=== PATIENT | male | born 1925 | race Caucasian/White ===

== ENCOUNTER 2016-08-03 17:18 | Inpatient (IN) | payer MEDICARE, OTHER ==
[~2016-08-03] VITALS: Ht 188 cm; Wt 84.7 kg
[~2016-08-03 17:18] MED LIST: ARIC10TA PO; DIGO0.12 PO; DOCU1CAP39 PO; FERR324T4 OR; MELA10TA3 PO; METO50TA PO; RISP0.5T20 OR; TRAM50TA PO; VITA500C PO; WARF6 PO
[2016-08-03 17:21] VITALS: BP 117/57; PULSE 83; RESP 16; TEMP 98.7; O2SAT 96
[2016-08-03] MEDS ORDERED: SODIUM CHLOR 0.9% 1000 ML INJ 1,000 ML IV SCH (17:32)
[2016-08-03 17:34] VITALS: O2SAT 98
[2016-08-03] MEDS ORDERED: SODIUM CHLORIDE 0.9% FLUSH 5 ML FLUSH IVF PRN (17:45)
--- NOTE | 2016-08-03 17:55 | PD ---
HPI Chief Complaint: GI Complaint Time Seen by Provider: 17:21 Travel History International Travel<30 days: No Contact w/Intl Traveler<30days: No Traveled to known affect area: No History of Present Illness HPI Send 89 year-old man who presents to the emergency department via EMS from [facility]. Therefore multiple, innumerable, episodes of emesis throughout the night. Emesis is gotten darker in color. Given IM medications without relief. Patient is fairly lucid but has multiple medical problems including rheumatoid arthritis which is severe, A. fib, and heart failure. He is on prednisone 10 mg daily for the arthritis, but is not on any only on a baby aspirin daily. No other blood thinners. He does take Zantac. He otherwise has been feeling generally well. History Past Medical History Narrative Medical Rheumatoid arthritis, on prednisone, norco Hypertension Hyperlipidemia Dementia CAD CHF Known right bundle branch block Social History Alcohol Use: No Tobacco Use: No Allergies-Medications (Allergen,Severity, Reaction): Coded Allergies: No Known Allergies (Unverified , 08/03/16) Reported Meds & Prescriptions Reported Meds & Active Scripts Active Review of Systems Except as stated in HPI: all other systems reviewed are Neg Physical Exam Narrative GENERAL: Well-appearing 89 year-old man, no acute distress. SKIN: Warm and dry. EYES: Keeps eyes shut, reportedly blind. ENT: No nasal bleeding or discharge. Mucous membranes pink and moist. NECK: Trachea midline. No JVD. CARDIOVASCULAR: Regular rate and rhythm. No murmur appreciated. RESPIRATORY: No accessory muscle use. Clear to auscultation. Breath sounds equal bilaterally. GASTROINTESTINAL: Abdomen flat and soft. MUSCULOSKELETAL: Marked arthritic contractures of both upper extremities. No edema. NEUROLOGICAL: His eyes closed but seems reasonably alert. Symmetrical are is a little bit of prompting answer questions. Seems very lucid. Has marked contractures, but no obvious focal deficits. PSYCHIATRIC: Appropriate mood and affect; insight and judgment normal. Data Data Last Documented VS Vital Signs Date Time Temp Pulse Resp B/P Pulse Ox O2 Delivery O2 Flow Rate FiO2 08/03/16 17:34 98 Room Air 08/03/16 17:21 98.7 83 16 117/57 Orders Complete Blood Count With Diff (08/03/16 17:32) Comprehensive Metabolic Panel (08/03/16 17:32) Lipase (08/03/16 17:32) Prothrombin Time / Inr (Pt) (08/03/16 17:32) Act Partial Throm Time (Ptt) (08/03/16 17:32) Type And Screen (08/03/16 17:32) Ecg Monitoring (08/03/16 17:32) Iv Access Insert/Monitor (08/03/16 17:32) Oximetry (08/03/16 17:32) Sodium Chlor 0.9% 1000 Ml Inj (Ns 1000 M (08/03/16 17:32) Sodium Chloride 0.9% Flush (Ns Flush) (08/03/16 17:45) Urinalysis - C+S If Indicated (08/03/16 18:00) Cath For Specimen (08/03/16 18:00) Ct Abd/Pel W Iv Contrast(Rout) (08/03/16 ) Labs Laboratory Tests Test 08/03/16 17:55 White Blood Count 20.8 TH/MM3 Red Blood Count 4.40 MIL/MM3 Hemoglobin 11.0 GM/DL Hematocrit 35.3 % Mean Corpuscular Volume 80.4 FL Mean Corpuscular Hemoglobin 25.0 PG Mean Corpuscular Hemoglobin 31.1 % Concent Red Cell Distribution Width 19.2 % Platelet Count 381 TH/MM3 Mean Platelet Volume 8.0 FL Neutrophils (%) (Auto) 90.4 % Lymphocytes (%) (Auto) 2.8 % Monocytes (%) (Auto) 6.2 % Eosinophils (%) (Auto) 0.0 % Basophils (%) (Auto) 0.6 % Neutrophils # (Auto) 18.8 TH/MM3 Lymphocytes # (Auto) 0.6 TH/MM3 Monocytes # (Auto) 1.3 TH/MM3 Eosinophils # (Auto) 0.0 TH/MM3 Basophils # (Auto) 0.1 TH/MM3 CBC Comment DIFF FINAL Differential Comment Prothrombin Time 10.8 SEC Prothromb Time International 1.0 RATIO Ratio Activated Partial 23.8 SEC Thromboplast Time Sodium Level 142 MEQ/L Potassium Level 4.2 MEQ/L Chloride Level 104 MEQ/L Carbon Dioxide Level 29.1 MEQ/L Anion Gap 9 MEQ/L Blood Urea Nitrogen 31 MG/DL Creatinine 1.12 MG/DL Estimat Glomerular Filtration 62 ML/MIN Rate Random Glucose 129 MG/DL Calcium Level 8.7 MG/DL Total Bilirubin 0.6 MG/DL Aspartate Amino Transf 37 U/L (AST/SGOT) Alanine Aminotransferase 20 U/L (ALT/SGPT) Alkaline Phosphatase 101 U/L Total Protein 7.3 GM/DL Albumin 3.0 GM/DL Lipase 77 U/L Blood Type O POSITIVE Antibody Screen NEGATIVE MDM Medical Decision Making Medical Screen Exam Complete: Yes Emergency Medical Condition: Yes Interpretation(s) LABS: CBC remarkable for leukocytosis, CMP is unremarkable Lipase is normal Coags unremarkable Differential Diagnosis GI bleed, ileus, obstruction, other Narrative Course Medical decision making INITIAL 89 year-old man presents emergent from with copious vomiting throughout the day today, concern for bleeding, we'll check labs, IV fluids, reassess. 7 PM: Patient with marked leukocytosis. Vomiting. Etiology unclear. No abdominal pain a benign abdomen, we'll get CT scan given age and risk comorbidities. Patient was signed out to the oncoming provider. Franky Davis MD Aug 03, 2016 17:55
[2016-08-03 18:03] LABS: AUTOMATED NEUTROPHIL # 18.8 TH/MM3 (1.8-7.7); BASOPHIL # 0.1 TH/MM3 (0-0.2); BASOPHIL % 0.6 % (0.0-2.0); HEMATOCRIT 35.3 % (39.0-51.0); HEMO FLAGS DIFF FINAL; LYMPH % 2.8 % (9.0-44.0); LYMPHOCYTE # 0.6 TH/MM3 (1.0-4.8); MEAN CELL VOLUME 80.4 FL (80.0-100.0); MEAN CORPUSCULAR HGB CONC 31.1 % (32.0-36.0); MONO % 6.2 % (0.0-8.0); NEUT % 90.4 % (16.0-70.0); PLATELET COUNT 381 TH/MM3 (150-450); RED CELL DISTRIBUTION WIDTH 19.2 % (11.6-17.2); WHITE BLOOD COUNT 20.8 TH/MM3 (4.0-11.0)
[2016-08-03 18:17] LABS: APTT (PATIENT) 23.8 SEC (24.3-30.1); PROTHROMBIN TIME - PATIENT 10.8 SEC (9.8-11.6)
[2016-08-03 18:34] LABS: ANION GAP 9 MEQ/L (5-15)
[2016-08-03 18:37] LABS: ALKALINE PHOSPHATASE 101 U/L (45-117); ALT (GPT) 20 U/L (12-78); AST (GOT) 37 U/L (15-37); BICARBONATE 29.1 MEQ/L (21.0-32.0); BLOOD UREA NITROGEN 31 MG/DL (7-18); CHLORIDE 104 MEQ/L (98-107); GLOMERULAR FILTRATION RATE 62 ML/MIN (>89); SODIUM (NA) 142 MEQ/L (136-145); TOTAL BILIRUBIN ADULT 0.6 MG/DL (0.2-1.0)
[2016-08-03 18:38] LABS: POTASSIUM 4.2 MEQ/L (3.5-5.1)
[2016-08-03 19:08] VITALS: BP 118/65; PULSE 103; RESP 18; O2SAT 97
--- NOTE | 2016-08-03 20:08 | RADRPT ---
EXAM DATE/TIME: 08/03/2016 19:32 [facility] COMPARISON: No previous studies available for comparison. INDICATIONS : Short of breath. MEDICAL HISTORY : Hypertension. Congestive heart failure. Arthritis. SURGICAL HISTORY : Inguinal hernia repair. ENCOUNTER: Initial ACUITY: 1 day PAIN SCORE: 0/10 LOCATION: Bilateral chest FINDINGS: A single view of the chest demonstrates bibasilar interstitial lung disease greater on the left. Ther e is no evidence of consolidating infiltrate. Heart is mildly enlarged. There is no evidence of hilar or mediastinal fullness. CONCLUSION: Interstitial lung disease predominantly within the bases. Interstitial pneumonitis versus early conge stion should be considered. Dane Schumacher MD on August 03, 2016 at 20:05 Board Certified Radiologist. This report was verified electronically.
[2016-08-03] MEDS ORDERED: IOHEXOL 350 MG/ML 10 ML VIAL (for RAD DIAG) IV ONE (20:15)
[2016-08-03] MEDS ORDERED: MORPHINE SULFATE 4 MG/ML INJ IV PUSH ONE (20:15)
[2016-08-03 20:34] VITALS: BP 135/76; PULSE 98; RESP 18; O2SAT 96
--- NOTE | 2016-08-03 20:50 | RADRPT ---
EXAM DATE/TIME: 08/03/2016 19:36 [facility] COMPARISON: ABDOMEN FLAT & UPRIGHT, August 03, 2016, 18:14. INDICATIONS : Nausea and vomiting today, coffe ground emesis. IV CONTRAST: 76 cc Omnipaque 350 (iohexol) IV ORAL CONTRAST: No oral contrast ingested. RADIATION DOSE: 10.76 CTDIvol (mGy) MEDICAL HISTORY : Arthritis. Hypertension. Cardiovascular diseaseDementia SURGICAL HISTORY : Inguinal hernia repair. ENCOUNTER: Initial ACUITY: 1 day PAIN SCALE: 0/10 LOCATION: Abdomen TECHNIQUE: Volumetric scanning of the abdomen and pelvis was performed. Using automated exposure control and ad justment of the mA and/or kV according to patient size, radiation dose was kept as low as reasonably achievable to obtain optimal diagnostic quality images. FINDINGS: LOWER LUNGS: Significant airspace disease is identified left lower lobe. LIVER: Homogeneous density without lesion. There is no dilation of the biliary tree. No calcified gallston es. SPLEEN: Normal size without lesion. PANCREAS: Within normal limits. KIDNEYS: A 4.2 cm cyst is identified off the medial cortex of left kidney. 5 mm calculus is identified in the midpole the left kidney. A 12 mm alculus is identified in the right renal pelvis. Kidneys are otherwi se unremarkable there is no evidence of hydronephrosis. ADRENAL GLANDS: Within normal limits. VASCULAR: There is no aortic aneurysm. BOWEL/MESENTERY: Small bowel ileus with distention and air-fluid levels is identified to approximately the mid to dist al jejunum. There is an acute transition point with distal collapse of the small and large intestine. There is no evidence of discrete mass. Large fecal bolus consistent with impaction is identified in the rectum. ABDOMINAL WALL: There are no incarcerated hernias. RETROPERITONEUM: There is no lymphadenopathy. BLADDER: No wall thickening or mass. REPRODUCTIVE: Within normal limits. INGUINAL: There is no lymphadenopathy or hernia. MUSCULOSKELETAL: No acute findings. CONCLUSION: Proximal to mid small bowel ileus with acute transition characteristic of an obstructing adhesion. No evidence of discrete mass. Bilateral nephrolithiasis without evidence of hydronephrosis. Left renal cyst. Fecal impaction in rectum. Dane Schumacher MD on August 03, 2016 at 20:39 Board Certified Radiologist. This report was verified electronically.
--- NOTE | 2016-08-03 20:59 | PD ---
Physical Exam Narrative The patient was initially evaluated by the previous provider and sent out to me at shift. See his note for further details. Data Data Last Documented VS Vital Signs Date Time Temp Pulse Resp B/P Pulse Ox O2 Delivery O2 Flow Rate FiO2 08/03/16 20:34 98 18 135/76 96 Room Air 08/03/16 17:21 98.7 Orders Complete Blood Count With Diff (08/03/16 17:32) Comprehensive Metabolic Panel (08/03/16 17:32) Lipase (08/03/16 17:32) Prothrombin Time / Inr (Pt) (08/03/16 17:32) Act Partial Throm Time (Ptt) (08/03/16 17:32) Type And Screen (08/03/16 17:32) Ecg Monitoring (08/03/16 17:32) Iv Access Insert/Monitor (08/03/16 17:32) Oximetry (08/03/16 17:32) Sodium Chlor 0.9% 1000 Ml Inj (Ns 1000 M (08/03/16 17:32) Sodium Chloride 0.9% Flush (Ns Flush) (08/03/16 17:45) Urinalysis - C+S If Indicated (08/03/16 18:00) Cath For Specimen (08/03/16 18:00) Ct Abd/Pel W Iv Contrast(Rout) (08/03/16 ) Chest, Single Ap (08/03/16 ) Morphine Inj (Morphine Inj) (08/03/16 20:15) Iohexol 350 Inj (Omnipaque 350 Inj) (08/03/16 20:15) Insert Ng Tube (08/03/16 20:50) Ceftriaxone Inj (Rocephin Inj) (08/03/16 21:15) Fleets Enema (Adult) (Fleets Enema (Adul (08/03/16 21:15) Pantoprazole Inj (Protonix Inj) (08/03/16 21:15) Pantoprazole Inj (Protonix Inj) (08/03/16 21:15) Urine Culture (08/03/16 20:21) Sodium Chlor 0.9% 1000 Ml Inj (Ns 1000 M (08/03/16 21:30) Lactic Acid (08/03/16 21:19) Blood Culture (08/03/16 21:19) Admit Order (Ed Use Only) (08/03/16 21:54) Labs Laboratory Tests Test 08/03/16 08/03/16 08/03/16 17:55 20:21 21:30 White Blood Count 20.8 TH/MM3 Red Blood Count 4.40 MIL/MM3 Hemoglobin 11.0 GM/DL Hematocrit 35.3 % Mean Corpuscular Volume 80.4 FL Mean Corpuscular Hemoglobin 25.0 PG Mean Corpuscular Hemoglobin 31.1 % Concent Red Cell Distribution Width 19.2 % Platelet Count 381 TH/MM3 Mean Platelet Volume 8.0 FL Neutrophils (%) (Auto) 90.4 % Lymphocytes (%) (Auto) 2.8 % Monocytes (%) (Auto) 6.2 % Eosinophils (%) (Auto) 0.0 % Basophils (%) (Auto) 0.6 % Neutrophils # (Auto) 18.8 TH/MM3 Lymphocytes # (Auto) 0.6 TH/MM3 Monocytes # (Auto) 1.3 TH/MM3 Eosinophils # (Auto) 0.0 TH/MM3 Basophils # (Auto) 0.1 TH/MM3 CBC Comment DIFF FINAL Differential Comment Prothrombin Time 10.8 SEC Prothromb Time International 1.0 RATIO Ratio Activated Partial 23.8 SEC Thromboplast Time Sodium Level 142 MEQ/L Potassium Level 4.2 MEQ/L Chloride Level 104 MEQ/L Carbon Dioxide Level 29.1 MEQ/L Anion Gap 9 MEQ/L Blood Urea Nitrogen 31 MG/DL Creatinine 1.12 MG/DL Estimat Glomerular Filtration 62 ML/MIN Rate Random Glucose 129 MG/DL Calcium Level 8.7 MG/DL Total Bilirubin 0.6 MG/DL Aspartate Amino Transf 37 U/L (AST/SGOT) Alanine Aminotransferase 20 U/L (ALT/SGPT) Alkaline Phosphatase 101 U/L Total Protein 7.3 GM/DL Albumin 3.0 GM/DL Lipase 77 U/L Blood Type O POSITIVE Antibody Screen NEGATIVE Crossmatch Leukocyte-Reduced Red Blood Cells Blood Bank Comment Urine Color YELLOW Urine Turbidity CLOUDY Urine pH 6.0 Urine Specific [place] 1.023 Urine Protein 300 mg/dL Urine Glucose (UA) NEG mg/dL Urine Ketones NEG mg/dL Urine Occult Blood LARGE Urine Nitrite NEG Urine Bilirubin NEG Urine Urobilinogen LESS THAN 2.0 MG/DL Urine Leukocyte Esterase LARGE Urine RBC /hpf Urine WBC /hpf Urine WBC Clumps MANY Urine Bacteria MANY /hpf Urine Mucus MANY /lpf Microscopic Urinalysis Comment CATH-CULTURE IND Lactic Acid Level 2.0 mmol/L MDM Supervised Visit with DEEP: No Narrative Course Briefly this is an 89-year-old male who is here from his custodial for evaluation of nausea and vomiting. 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 He also has history of A. fib and is on aspirin. Initially emesis was yellow, then became dark. Abdominal x-ray is consistent with small bowel obstruction with fecal impaction which was confirmed by CT abdomen pelvis. NG tube was placed with 900 cc of coffee-ground material aspirated. This tested positive for Hemoccult blood. Stool was also Hemoccult positive. The patient was started on Protonix and a protonic strip. CBC is markable for WBC 20,000, hemoglobin is 11. Chest x-ray shows interstitial lung disease predominantly within the bases, interstitial pneumonitis versus early congestion should be considered. Vital signs show heart rate 83, blood pressure 117/57, pulse ox 96 % on room air, oral temp of 98.7 from high. I attempted to disimpact the patient, however there is no stool in his rectal vault. Fleets enema written for. The patient's urine was obtained by catheterized specimen and is very cloudy, yellow, and is suggestive of UTI. The patient was given a dose of Rocephin.. He will be admitted for further treatment and evaluation of bowel distraction, GI bleed, leukocytosis. Blood cultures and lactic acid ordered. I discussed all findings with the patient and the patient's daughter and plan for admission. The patient's daughter tells me that the patient's only abdominal surgery was an inguinal hernia repair, but she cannot recall which side it was on. Case discussed with hospitalist Dr. Freire who will admit the patient to her service to the ICU. She would like me to touch base with general surgery on- call. Case discussed with on-call surgical attending Dr. Mclain. He agrees with current management with NG tube to low intermittent suction. He will see the patient in consultation. Procedures Procedure Narrative NG tube placement: 14 [place] sump catheter was placed in the right nare. 900 cc of coffee- ground material was aspirated. Tolerated well. No complications. Chest x-ray ordered to confirm proper placement. Diagnosis Primary Impression: Small bowel obstruction Additional Impressions: GI bleed Qualified Code: K92.2 - Gastrointestinal hemorrhage, unspecified gastrointestinal hemorrhage type Leukocytosis Qualified Code: D72.829 - Leukocytosis, unspecified type UTI (urinary tract infection) Qualified Code: N30.01 - Acute cystitis with hematuria Sepsis Qualified Code: A41.9 - Sepsis, due to unspecified organism Admitting Information Admitting Physician Requests: Admit Dre Nieto MD Aug 03, 2016 20:59
[2016-08-03 21:13] LABS: BACTERIA, URINE MANY /hpf; BLOOD, URINE LARGE (NEG); GLUCOSE,URINE NEG (NEG); KETONE, URINE NEG (NEG); MUCUS URINE MANY /lpf (OCC); NITRITE,URINE NEG (NEG); URINE COLOR YELLOW (YELLW/STRAW)
[2016-08-03 21:14] LABS: COMMENT (UR) CATH-CULTURE IND; CULTURE IF INDICATED CATH CULTURE IND
[2016-08-03] MEDS: PANTOPRAZOLE INJ 80 MG in SODIUM CHLORIDE 0.9% INJ 100 ML IV SCH (21:15)
[2016-08-03] MEDS ORDERED: SOD PHOSPHATE/SOD BIPHOSPHATE (ADULT) ENEMA 133ML PR ONE (21:15)
[2016-08-03] MEDS ORDERED: cefTRIAXone INJ 1,000 MG in SODIUM CHLORIDE 0.9% INJ 100 ML IV ONE (21:15)
[2016-08-03] MEDS ORDERED: PANTOPRAZOLE INJ 80 MG in SODIUM CHLORIDE 0.9% INJ 35 ML IV ONE (21:15)
[2016-08-03] MEDS ORDERED: SODIUM CHLOR 0.9% 1000 ML INJ 1,000 ML IV ONE (21:30)
[2016-08-03] MEDS: SODIUM CHLOR 0.9% 1000 ML INJ 1,000 ML IV SCH (22:12)
[2016-08-03] MEDS ORDERED: SODIUM CHLORIDE 0.9% FLUSH 5 ML FLUSH FLUSH PRN (22:15)
[2016-08-03] MEDS ORDERED: ONDANSETRON HCL 4 MG/2 ML VIAL IVP PRN (22:15)
[2016-08-03] MEDS ORDERED: NALOXONE HCL 0.4 MG/ML AMP IV PRN (22:15)
[2016-08-03 22:48] VITALS: BP 153/68; PULSE 83; RESP 16; O2SAT 95
[2016-08-03 23:26] LABS: HEMATOCRIT 32.9 % (39.0-51.0)
[2016-08-03 23:28] LABS: REVIEW FLAG FINAL
[2016-08-04] VITALS (10 sets, daily range): BP systolic 116–128; BP diastolic 55–88; PULSE 95–124; RESP 12–23; TEMP 97.7–99.2; O2SAT 92–100
[2016-08-04] MEDS ORDERED: MISCELLANEOUS NURSING INFORMATION XX SCH (03:15)
[2016-08-04] MEDS ORDERED: CHLORHEXIDINE GLUCONATE 2 % 1 PACK (2 CLOTHS) TOP PRN (03:15)
[2016-08-04] MEDS: CHLORHEXIDINE GLUCONATE 2 % 1 PACK (2 CLOTHS) TOP SCH (04:00)
[2016-08-04 05:18] LABS: AUTOMATED NEUTROPHIL # 17.7 TH/MM3 (1.8-7.7); BASOPHIL % 0.2 % (0.0-2.0); HEMATOCRIT 33.3 % (39.0-51.0); LYMPH % 2.2 % (9.0-44.0); LYMPHOCYTE # 0.4 TH/MM3 (1.0-4.8); MEAN CELL VOLUME 80.2 FL (80.0-100.0); MEAN CORPUSCULAR HEMOGLOBIN 24.9 PG (27.0-34.0); MONO % 5.9 % (0.0-8.0); NEUT % 91.7 % (16.0-70.0); PLATELET COUNT 327 TH/MM3 (150-450); RED BLOOD COUNT 4.15 MIL/MM3 (4.50-5.90); RED CELL DISTRIBUTION WIDTH 18.8 % (11.6-17.2); WHITE BLOOD COUNT 19.3 TH/MM3 (4.0-11.0)
[2016-08-04 05:26] LABS: HEMO FLAGS AUTO DIFF
--- NOTE | 2016-08-04 05:35 | HHI.HP ---
[facility] Leandro Alvarez MD Admission Diagnosis sepsis, SBO, GI bleed, UTI, constipation Diagnoses: Chief Complaint: Vomiting Travel History International Travel<30 Days: No Contact w/Intl Traveler <30 Da: No Traveled to Known Affected Are: No History of Present Illness History the patient, your physician communication, and review of medical records. [facility]. Patient is an elderly gentleman who is entirely awake alert and oriented . Able to give proper history. He states that he came to the hospital because he had episodes of vomiting in the past 24 hours. He stated there was coffee-ground color vomitus. He however denies any diarrhea. He reports that he only started having bowel movements in the hospital. 3 times already so far. Also reports of associated abdominal pain. Lower abdomen. Denies any fever. Denies any chest pain/shortness of breath/focal weakness. 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 He also has severe rheumatoid arthritis which basically made him bedbound. In the emergency room, patient's workup revealed small bowel obstruction with a transition point. NG tube was placed at that time and 900 cc of coffee-ground emesis resulted. After the above 900, patient's NG tube output is quite minimal almost nil. Review of Systems Except as stated in HPI: all other systems reviewed are Neg Past Family Social History Past Medical History Osteoarthritis Osteoporosis Anxiety disorder Hypertension Hyperlipidemia Atrial fibrillation CAD Anemia CHF Depression Past Surgical History Reports a history of something ruptured Per EMR: Patient had inguinal hernia repair Reported Medications [facility] 10 mg by mouth daily. [place] 5/325 by mouth every 6 hours when necessary. Digoxin 0.125 mg by mouth daily. Aspirin 81 mg by mouth daily. Nitrostat sublingual when necessary. Zantac 150 mg by mouth twice a day. Allergies: Coded Allergies: No Known Allergies (Unverified , 08/03/16) Family History Denies any family history of any medical issues as for as he could remember Social History Denies smoking/alcohol abuse/drug abuse. [facility] resident. Physical Exam Vital Signs Vital Signs Date Time Temp Pulse Resp B/P Pulse Ox O2 Delivery O2 Flow Rate FiO2 08/04/16 04:50 96 Nasal Cannula 2.00 08/04/16 04:00 107 08/04/16 02:10 97.7 124 22 127/88 96 08/03/16 22:48 83 16 153/68 95 Room Air 08/03/16 20:34 98 18 135/76 96 Room Air 08/03/16 19:08 103 18 118/65 97 Room Air 08/03/16 17:34 98 Room Air 08/03/16 17:21 98.7 83 16 117/57 96 Physical Exam GENERAL: This is a well-nourished, well-developed patient, in no apparent distress. SKIN: No rashes, ecchymoses or lesions. Cool and dry. HEAD: Atraumatic. Normocephalic. No temporal or scalp tenderness. EYES: Eyes closed due to blindness from cataracts ENT: Nose without bleeding, purulent drainage or septal hematoma. NG tube in place. No further drainage in canister. Airway patent. NECK: Trachea midline. No JVD CARDIOVASCULAR: Regular rate and rhythm without murmurs, gallops, or rubs. RESPIRATORY: Clear to auscultation. Breath sounds equal bilaterally. No wheezes , rales, or rhonchi. GASTROINTESTINAL: Abdomen soft, non-tender, nondistended. No guarding. MUSCULOSKELETAL: Extremities without clubbing, cyanosis No calf tenderness. Bilateral lower extremity 2+ pitting edema NEUROLOGICAL: Awake and alert. Motor and sensory grossly within normal limits although quite weak bilaterally..Normal speech. Laboratory Laboratory Tests Test 08/03/16 08/03/16 08/03/16 08/03/16 17:55 20:21 21:30 23:15 White Blood Count 20.8 Red Blood Count 4.40 Hemoglobin 11.0 10.2 Hematocrit 35.3 32.9 Mean Corpuscular Volume 80.4 Mean Corpuscular Hemoglobin 25.0 Mean Corpuscular Hemoglobin 31.1 Concent Red Cell Distribution Width 19.2 Platelet Count 381 Mean Platelet Volume 8.0 Neutrophils (%) (Auto) 90.4 Lymphocytes (%) (Auto) 2.8 Monocytes (%) (Auto) 6.2 Eosinophils (%) (Auto) 0.0 Basophils (%) (Auto) 0.6 Neutrophils # (Auto) 18.8 Lymphocytes # (Auto) 0.6 Monocytes # (Auto) 1.3 Eosinophils # (Auto) 0.0 Basophils # (Auto) 0.1 CBC Comment DIFF FINAL Differential Comment Prothrombin Time 10.8 Prothromb Time International 1.0 Ratio Activated Partial 23.8 Thromboplast Time Sodium Level 142 Potassium Level 4.2 Chloride Level 104 Carbon Dioxide Level 29.1 Anion Gap 9 Blood Urea Nitrogen 31 Creatinine 1.12 Estimat Glomerular Filtration 62 Rate Random Glucose 129 Calcium Level 8.7 Total Bilirubin 0.6 Aspartate Amino Transf 37 (AST/SGOT) Alanine Aminotransferase 20 (ALT/SGPT) Alkaline Phosphatase 101 Total Protein 7.3 Albumin 3.0 Lipase 77 Blood Type O POSITIVE Antibody Screen NEGATIVE Crossmatch Leukocyte-Reduced Red Blood Cells Blood Bank Comment Urine Color YELLOW Urine Turbidity CLOUDY Urine pH 6.0 Urine Specific [place] 1.023 Urine Protein 300 Urine Glucose (UA) NEG Urine Ketones NEG Urine Occult Blood LARGE Urine Nitrite NEG Urine Bilirubin NEG Urine Urobilinogen LESS THAN 2.0 Urine Leukocyte Esterase LARGE Urine RBC Urine WBC Urine WBC Clumps MANY Urine Bacteria MANY Urine Mucus MANY Microscopic Urinalysis Comment CATH-CULTURE IND Lactic Acid Level 2.0 Test 08/04/16 04:50 White Blood Count 19.3 Red Blood Count 4.15 Hemoglobin 10.3 Hematocrit 33.3 Mean Corpuscular Volume 80.2 Mean Corpuscular Hemoglobin 24.9 Mean Corpuscular Hemoglobin 31.0 Concent Red Cell Distribution Width 18.8 Platelet Count 327 Mean Platelet Volume 7.7 Neutrophils (%) (Auto) 91.7 Lymphocytes (%) (Auto) 2.2 Monocytes (%) (Auto) 5.9 Eosinophils (%) (Auto) 0.0 Basophils (%) (Auto) 0.2 Neutrophils # (Auto) 17.7 Lymphocytes # (Auto) 0.4 Monocytes # (Auto) 1.1 Eosinophils # (Auto) 0.0 Basophils # (Auto) 0.0 CBC Comment AUTO DIFF Date/Time Procedure Status Source Growth 08/03/16 21:50 Aerobic Blood Culture Received Blood Peripheral Pending 08/03/16 21:50 Anaerobic Blood Culture Received Blood Peripheral Pending 08/03/16 20:21 Urine Culture Received Urine Catheterized Urine Pending Result Diagram: 08/04/16 3033 08/03/16 9329 Assessment and Plan Problem List: (1) GI bleed ICD Code: K92.2 Status: Acute (2) Small bowel obstruction ICD Code: K56.69 Status: Acute (3) UTI (urinary tract infection) ICD Code: N39.0 Status: Acute (4) Leukocytosis ICD Code: D72.829 Status: Acute Assessment and Plan Impression: Small bowel obstruction Acute upper GI bleed UTI Leukocytosis with left shift Osteoarthritis Osteoporosis Anxiety disorder Hypertension Hyperlipidemia Atrial fibrillation CAD Anemia CHF Depression Plan: Nothing by mouth. NG tube was placed in ER. Patient was assaulted about 900 cc of coffee-ground emesis. After this, NG tube output is almost nil. We'll continue to monitor. general surgery was consulted. We'll follow recommendations. Hold blood thinners. GI consult. Continue Protonix IV drip. Serial hemoglobin and hematocrits. Patient received Rocephin IV in ER for his UTI. We'll start him on Cipro 400 mg IV every 12 hours. Resume his home meds apart from blood thinners. Orders of been written to update his med reconciliation with what is on the jail list. DVT prophylaxiswith SCD. GI prophylaxis on pantoprazole. Discussed Condition With Patient, ER physician, ER nurse Physician Certification 2 Midnight Certification Type: Admission for Inpatient Services Order for Inpatient Services The services are ordered in accordance with Medicare regulations or non- Medicare payer requirements, as applicable. In the case of services not specified as inpatient-only, they are appropriately provided as inpatient services in accordance with the 2-midnight benchmark. Estimated LOS (days): 2 days is the estimated time the patient will need to remain in the hospital, assuming treatment plan goals are met and no additional complications. Post-Hospital Plan: SNF Problem Qualifiers (1) GI bleed: Qualified Code: K92.2 - Gastrointestinal hemorrhage, unspecified gastrointestinal hemorrhage type (2) UTI (urinary tract infection): Qualified Code: N30.01 - Acute cystitis with hematuria (3) Leukocytosis: Qualified Code: D72.829 - Leukocytosis, unspecified type Alba Freire MD Aug 04, 2016 05:35
[2016-08-04 05:41] LABS: ALKALINE PHOSPHATASE 88 U/L (45-117); ALT (GPT) 15 U/L (12-78); ANION GAP 9 MEQ/L (5-15); AST (GOT) 21 U/L (15-37); BLOOD UREA NITROGEN 29 MG/DL (7-18); CHLORIDE 110 MEQ/L (98-107); GLOMERULAR FILTRATION RATE 72 ML/MIN (>89); POTASSIUM 3.4 MEQ/L (3.5-5.1); SODIUM (NA) 147 MEQ/L (136-145); TOTAL BILIRUBIN ADULT 0.5 MG/DL (0.2-1.0)
[2016-08-04] MEDS: POTASSIUM CHLOR 20 MEQ PREMIX 100 ML IV SCH ×2 (06:17→08:00)
[2016-08-04 07:12] LABS: HEMATOCRIT 31.1 % (39.0-51.0); REVIEW FLAG FINAL
[2016-08-04 07:14] LABS: BANDS 5 % (0-6); NEUTROPHIL # MANUAL DIFF 17.8 TH/MM3 (1.8-7.7); OVALOCYTES 1+ (NORMAL); POLYS (SEG NEUTROPHILS) 87 % (16-70); WBC DIFF SAMPLE 100
[2016-08-04 07:15] LABS: PLATELET ESTIMATE SMEAR NORMAL (NORMAL); PLATELET MORPHOLOGY NORMAL (NORMAL); SCAN/DIFF FINAL DIFF MANUAL
[2016-08-04] MEDS: PANTOPRAZOLE INJ 80 MG in SODIUM CHLORIDE 0.9% INJ 100 ML IV SCH ×2 (07:15→20:00)
[2016-08-04] MEDS ORDERED: POTASSIUM CHLOR 40 MEQ PREMIX 100 ML IV PRN ×2 (08:00)
[2016-08-04] MEDS ORDERED: POTASSIUM PHOSPHATE INJ 30 MMOL in SODIUM CHLOR 0.9% 250 ML INJ 250 ML IV PRN (08:00)
[2016-08-04] MEDS ORDERED: POTASSIUM CL 40 MEQ/30 ML LIQ UDC PO/TUBE PRN ×2 (08:00)
[2016-08-04] MEDS ORDERED: POTASSIUM PHOSPHATE MONOBASIC 500 MG TAB PO/TUBE PRN (08:00)
[2016-08-04] MEDS ORDERED: SODIUM PHOSPHATE INJ 30 MMOL in SODIUM CHLOR 0.9% 250 ML INJ 240 ML IV PRN (08:00)
[2016-08-04] MEDS ORDERED: POTASSIUM PHOSPHATE MONOBASIC 500 MG TAB PO PRN (08:00)
[2016-08-04] MEDS ORDERED: MAGNESIUM OXIDE 400 MG TAB PO PRN (08:00)
[2016-08-04] MEDS ORDERED: MAGNESIUM SULFATE INJ 2 GM in SODIUM CHLORIDE 0.9% INJ 96 ML IV PRN (08:00)
[2016-08-04] MEDS ORDERED: POTASSIUM CHLOR 20 MEQ PREMIX 100 ML IV PRN (08:00)
[2016-08-04] MEDS ORDERED: MAGNESIUM SULFATE INJ 4 GM in SODIUM CHLORIDE 0.9% INJ 92 ML IV PRN (08:00)
[2016-08-04] MEDS: SODIUM CHLOR 0.9% 1000 ML INJ 1,000 ML IV SCH ×2 (08:12→18:12)
[2016-08-04] MEDS ORDERED: MORPHINE SULFATE 4 MG/ML INJ IV PUSH ONE (08:45)
[2016-08-04] MEDS: SODIUM CHLORIDE 0.9% FLUSH 5 ML FLUSH FLUSH SCH ×2 (09:00→20:01)
[2016-08-04] MEDS ORDERED: ASPI81TA81 PO (09:14)
[2016-08-04] MEDS ORDERED: PROM1SUP7 RECTAL (09:14)
[2016-08-04] MEDS ORDERED: NORC5TAB PO (09:14)
[2016-08-04] MEDS ORDERED: ONDA1TAB16 PO (09:14)
[2016-08-04] MEDS ORDERED: PROM12.54 PO (09:14)
[2016-08-04] MEDS ORDERED: ZANT150T2 PO (09:14)
[2016-08-04] MEDS ORDERED: PRED10 PO (09:14)
[2016-08-04] MEDS ORDERED: NITR0.4S SL (09:14)
[2016-08-04] MEDS ORDERED: DIGO0.12 PO (09:14)
[2016-08-04] MEDS ORDERED: TUBE5INJ2 I-DERMAL (09:14)
[2016-08-04] MEDS ORDERED: LACROIN EACH EYE (09:14)
[2016-08-04] MEDS ORDERED: PROC25SU22 RECTAL (09:14)
[2016-08-04] MEDS: CIPROFLOXACIN 400 MG PREMIX 200 ML IV SCH ×2 (10:05→20:01)
--- NOTE | 2016-08-04 10:45 | PD.CONS ---
HPI History of Present Illness This is a 89 year old male with past medical history of rheumatoid arthritis, A. fib, and heart failure who presents to the emergency department via EMS from [facility] for evaluation of multiple episodes of emesis throughout the night. The emesis is coffee ground that began yesterday. Patient is on prednisone 10 mg daily for the arthritis, on a baby aspirin daily. No other blood thinners. He does take Zantac. He denies any other associated symptoms including chest pain, shortness of breath, weakness, fever, chills, abdomen pain, diarrhea, melena or hematochezia. NG tube was placed and coffee-ground out put noted, this was about 900 ml in the ED. CT showed Proximal to mid small bowel ileus with acute transition characteristic of an obstructing adhesion. No evidence of discrete mass. Bilateral nephrolithiasis without evidence of hydronephrosis. Left renal cyst. Fecal impaction in rectum. He had moved his bowels here in the hospital. Currently patient is alert and oriented answering questions properly, NGT with minimal coffee ground emesis, abdomen soft, no distension. Hgb is 9.8 which is a drop from 11 on arrival. (Hubert Torres) PFSH Past Medical History Osteoarthritis Osteoporosis Anxiety disorder Hypertension Hyperlipidemia Atrial fibrillation CAD Anemia CHF Depression Past Surgical History Per EMR: Patient had inguinal hernia repair (Hubert Torres) Coded Allergies: No Known Allergies (Unverified , 08/03/16) Medications Current Medications Medications (Trade) Dose Ordered Sig/Varun Route Start Time Stop Time Status Last Admin Pantoprazole Sodium 80 mg/ Sodium Chloride 100 ml @ 10 mls/hr Q10H IV 08/03/16 21:15 08/04/16 07:15 (NS 1000 ml Inj) 1,000 ml @ 100 mls/hr Q10H IV 08/03/16 22:12 08/04/16 08:12 (NS Flush) 2 ml UNSCH PRN FLUSH 08/03/16 22:15 (NS Flush) 2 ml BID FLUSH 08/04/16 09:00 08/04/16 09:00 (Zofran Inj) 4 mg Q6H PRN IVP 08/03/16 22:15 (Narcan Inj) 0.4 mg UNSCH PRN IV 08/03/16 22:15 Miscellaneous Information 1 Q361D XX 08/04/16 03:15 (Chlorhexidine 2% Cloth) 3 pack Taper DAILY@04 TOP 08/04/16 04:00 07/31/17 03:59 08/04/16 04:00 Chlorhexidine Gluconate 3 pack 3 pack UNSCH PRN TOP 08/04/16 03:15 Potassium Chloride 100 ml @ 50 mls/hr Q2H PRN IV 08/04/16 08:00 (KCl 20 Meq Premix Inj) 100 ml @ 50 mls/hr Q2H PRN IV 08/04/16 08:00 Potassium Chloride 40 meq 40 meq UNSCH PRN PO/TUBE 08/04/16 08:00 Potassium Chloride 100 ml @ 25 mls/hr UNSCH PRN IV 08/04/16 08:00 Potassium Chloride 100 ml @ 50 mls/hr Q2H PRN IV 08/04/16 08:00 (Magnesium Sulfate Inj/NS Inj) 100 ml @ 50 mls/hr UNSCH PRN IV 08/04/16 08:00 Magnesium Oxide 800 mg 800 mg UNSCH PRN PO 08/04/16 08:00 (Magnesium Sulfate Inj/NS Inj) 100 ml @ 50 mls/hr UNSCH PRN IV 08/04/16 08:00 Potassium Phosphate 2000 mg 2,000 mg Q4H PRN PO 08/04/16 08:00 (Sodium Phosphate Inj/NS 250 ml Inj) 250 ml @ 42 mls/hr UNSCH PRN IV 08/04/16 08:00 (KCl 40 Meq/30 ml Liq) 40 meq UNSCH PRN PO/TUBE 08/04/16 08:00 Potassium Phosphate 2000 mg 2,000 mg UNSCH PRN PO/TUBE 08/04/16 08:00 Potassium Phosphate 30 mmol/ Sodium Chloride 260 ml @ 42 mls/hr UNSCH PRN IV 08/04/16 08:00 (Cipro 400 Mg Premix) 200 ml @ 200 mls/hr Q12H IV 08/04/16 09:00 08/04/16 10:05 Family History Denies any family history of any medical issues as for as he could remember Social History Denies smoking/alcohol abuse/drug abuse. [facility] resident. (Hubert Torres) Review of Systems Constitutional: DENIES: Fatigue, Chills Endocrine: DENIES: Polyuria Eyes: DENIES: Double Vision Ears, nose, mouth, throat: DENIES: Hoarseness Respiratory: DENIES: Shortness of breath Cardiovascular: DENIES: Syncope Gastrointestinal: COMPLAINS OF: Constipation, Nausea, Vomiting, Hematemesis, DENIES: Abdominal pain, Black stools, Bloody stools, Diarrhea, Difficulty Swallowing, Anorexia, Swelling of Abdomen, Heartburn Genitourinary: DENIES: Hematuria Musculoskeletal: DENIES: Neck pain Integumentary: DENIES: Jaundice Hematologic/lymphatic: DENIES: Bruising Immunologic/allergic: DENIES: Eczema Neurologic: DENIES: Abnormal gait Psychiatric: DENIES: Anxiety (Amawi,Khawla SHOW HOST/HOSTESS) GI Exam Vitals I&O Vital Signs Date Time Temp Pulse Resp B/P Pulse Ox O2 Delivery O2 Flow Rate FiO2 08/04/16 09:10 97 Nasal Cannula 2.00 08/04/16 04:50 96 Nasal Cannula 2.00 08/04/16 04:00 107 08/04/16 02:10 97.7 124 22 127/88 96 08/03/16 22:48 83 16 153/68 95 Room Air 08/03/16 20:34 98 18 135/76 96 Room Air 08/03/16 19:08 103 18 118/65 97 Room Air 08/03/16 17:34 98 Room Air 08/03/16 17:21 98.7 83 16 117/57 96 I/O 08/03/16 08/03/16 08/03/16 08/04/16 08/04/16 08/04/16 07:00 15:00 23:00 07:00 15:00 23:00 Intake Total 325 ml Output Total 400 ml Balance -75 ml Intake IV Total 325 ml Output Urine Total 400 ml # Bowel Movements 5 Imaging Last Impressions Chest X-Ray 08/03/16 0000 Signed Impressions: Service Date/Time: Wednesday, August 03, 2016 19:32 - CONCLUSION: Interstitial lung disease predominantly within the bases. Interstitial pneumonitis versus early congestion should be considered. Dane Schumacher MD Abdomen/Pelvis CT 08/03/16 0000 Signed Impressions: Service Date/Time: Wednesday, August 03, 2016 19:36 - CONCLUSION: Proximal to mid small bowel ileus with acute transition characteristic of an obstructing adhesion. No evidence of discrete mass. Bilateral nephrolithiasis without evidence of hydronephrosis. Left renal cyst. Fecal impaction in rectum. Dane Schumacher MD Laboratory Test 08/03/16 08/03/16 08/03/16 08/03/16 17:55 20:21 21:30 23:15 White Blood Count 20.8 TH/MM3 Red Blood Count 4.40 MIL/MM3 Hemoglobin 11.0 GM/DL 10.2 GM/DL Hematocrit 35.3 % 32.9 % Mean Corpuscular Volume 80.4 FL Mean Corpuscular Hemoglobin 25.0 PG Mean Corpuscular Hemoglobin 31.1 % Concent Red Cell Distribution Width 19.2 % Platelet Count 381 TH/MM3 Mean Platelet Volume 8.0 FL Neutrophils (%) (Auto) 90.4 % Lymphocytes (%) (Auto) 2.8 % Monocytes (%) (Auto) 6.2 % Eosinophils (%) (Auto) 0.0 % Basophils (%) (Auto) 0.6 % Neutrophils # (Auto) 18.8 TH/MM3 Lymphocytes # (Auto) 0.6 TH/MM3 Monocytes # (Auto) 1.3 TH/MM3 Eosinophils # (Auto) 0.0 TH/MM3 Basophils # (Auto) 0.1 TH/MM3 CBC Comment DIFF FINAL Differential Comment Prothrombin Time 10.8 SEC Prothromb Time International 1.0 RATIO Ratio Activated Partial 23.8 SEC Thromboplast Time Sodium Level 142 MEQ/L Potassium Level 4.2 MEQ/L Chloride Level 104 MEQ/L Carbon Dioxide Level 29.1 MEQ/L Anion Gap 9 MEQ/L Blood Urea Nitrogen 31 MG/DL Creatinine 1.12 MG/DL Estimat Glomerular Filtration 62 ML/MIN Rate Random Glucose 129 MG/DL Calcium Level 8.7 MG/DL Total Bilirubin 0.6 MG/DL Aspartate Amino Transf 37 U/L (AST/SGOT) Alanine Aminotransferase 20 U/L (ALT/SGPT) Alkaline Phosphatase 101 U/L Total Protein 7.3 GM/DL Albumin 3.0 GM/DL Lipase 77 U/L Blood Type O POSITIVE Antibody Screen NEGATIVE Crossmatch Leukocyte-Reduced Red Blood Cells Blood Bank Comment Urine Color YELLOW Urine Turbidity CLOUDY Urine pH 6.0 Urine Specific [place] 1.023 Urine Protein 300 mg/dL Urine Glucose (UA) NEG mg/dL Urine Ketones NEG mg/dL Urine Occult Blood LARGE Urine Nitrite NEG Urine Bilirubin NEG Urine Urobilinogen LESS THAN 2.0 MG/DL Urine Leukocyte Esterase LARGE Urine RBC /hpf Urine WBC /hpf Urine WBC Clumps MANY Urine Bacteria MANY /hpf Urine Mucus MANY /lpf Microscopic Urinalysis Comment CATH-CULTURE IND Lactic Acid Level 2.0 mmol/L Test 08/04/16 08/04/16 08/04/16 02:00 04:50 06:44 Nasal Screen MRSA (PCR) NEGATIVE White Blood Count 19.3 TH/MM3 Red Blood Count 4.15 MIL/MM3 Hemoglobin 10.3 GM/DL 9.8 GM/DL Hematocrit 33.3 % 31.1 % Mean Corpuscular Volume 80.2 FL Mean Corpuscular Hemoglobin 24.9 PG Mean Corpuscular Hemoglobin 31.0 % Concent Red Cell Distribution Width 18.8 % Platelet Count 327 TH/MM3 Mean Platelet Volume 7.7 FL Neutrophils (%) (Auto) 91.7 % Lymphocytes (%) (Auto) 2.2 % Monocytes (%) (Auto) 5.9 % Eosinophils (%) (Auto) 0.0 % Basophils (%) (Auto) 0.2 % Neutrophils # (Auto) 17.7 TH/MM3 Lymphocytes # (Auto) 0.4 TH/MM3 Monocytes # (Auto) 1.1 TH/MM3 Eosinophils # (Auto) 0.0 TH/MM3 Basophils # (Auto) 0.0 TH/MM3 CBC Comment AUTO DIFF Differential Total Cells 100 Counted Neutrophils % (Manual) 87 % Band Neutrophils % 5 % Lymphocytes % 2 % Monocytes % 6 % Neutrophils # (Manual) 17.8 TH/MM3 Differential Comment FINAL DIFF MANUAL Platelet Estimate NORMAL Platelet Morphology Comment NORMAL Ovalocytes 1+ Sodium Level 147 MEQ/L Potassium Level 3.4 MEQ/L Chloride Level 110 MEQ/L Carbon Dioxide Level 28.0 MEQ/L Anion Gap 9 MEQ/L Blood Urea Nitrogen 29 MG/DL Creatinine 0.98 MG/DL Estimat Glomerular Filtration 72 ML/MIN Rate Random Glucose 128 MG/DL Calcium Level 8.1 MG/DL Phosphorus Level 3.6 MG/DL Total Bilirubin 0.5 MG/DL Aspartate Amino Transf 21 U/L (AST/SGOT) Alanine Aminotransferase 15 U/L (ALT/SGPT) Alkaline Phosphatase 88 U/L Total Protein 6.5 GM/DL Albumin 2.7 GM/DL Date/Time Procedure Status Source Growth 08/03/16 21:50 Aerobic Blood Culture Received Blood Peripheral Pending 2/28/17 21:50 Anaerobic Blood Culture Received Blood Peripheral Pending 08/03/16 20:21 Urine Culture Received Urine Catheterized Urine Pending Physical Examination HEENT: normocephalic; atraumatic; no jaundice. NECK: Neck is supple, no JVD, no lymphadenopathy. CHEST: Chest is clear to auscultation and percussion. CARDIAC: Regular rate and rhythm with no murmur gallop or rubs. ABDOMEN: Soft, nondistended, nontender; no hepatosplenomegaly; bowel sounds are present in all four quadrants. EXTREMITIES: Bilateral lower extremity 2+ pitting edema, sharmin digits in hands due to arthritis, pale SKIN: Pale SENIOR SAFETY MANAGEMENT CONSULTANT: No focal deficits; alert and oriented times three. (Hubert Torres) Assessment and Plan Plan - Gi bleed/coffee ground emesis began yesterday- multiple episodes of emesis throughout the night. The emesis is coffee ground that began yesterday. Patient is on prednisone 10 mg daily for the arthritis, on a baby aspirin daily. No other blood thinners. He does take Zantac. He denies any other associated symptoms including chest pain, shortness of breath, weakness, fever, chills, abdomen pain, diarrhea, melena or hematochezia. NG tube was placed and coffee-ground out put noted, this was about 900 ml in the ED. CT showed Proximal to mid small bowel ileus with acute transition characteristic of an obstructing adhesion. No evidence of discrete mass. Bilateral nephrolithiasis without evidence of hydronephrosis. Left renal cyst. Fecal impaction in rectum. He had moved his bowels here in the hospital. Currently patient is alert and oriented answering questions properly, NGT with minimal coffee ground emesis, abdomen soft, no distension. Hgb is 9.8 which is a drop from 11 on arrival. - Small bowel obstruction- CT as above, NGT, NPO, GS on the case - Leukocytosis/ UTI on cipro - rheumatoid arthritis, A. fib, and heart failure per attending Plan: - NPO - Cont. NGT to LIWS - Cont. PPI - EGD once medically stable - GS on the case - Monitor hh - Transfuse as needed - Supportive care - patient seen and examined by dr. Conway and myself and this note is written on his behalf. (Hubert Torres) Physician Comments Patient seen and examined Agree with above Continue with current supportive care Monitor labs EGD when more stable or if actively bleeding Await workup as per general surgery service (Karl Conway MD) Hubert Torres Aug 04, 2016 10:45 Karl Conway MD Aug 04, 2016 21:26
--- NOTE | 2016-08-04 12:27 | PD.CONS ---
HPI Service General Surgery Consult Requested By Dr. 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 He was found to have fecal impaction and concern for small bowel obstruction on CT scan. He had leukocytosis. His urine was grossly contaminated and UTI confirmed on urinalysis. He had an enema in the emergency department with some stooling. NG tube was placed in the ED with about 1 L of output. Review of Systems Constitutional: DENIES: Fever, Chills Eyes: COMPLAINS OF: Vision loss Respiratory: DENIES: Cough, Shortness of breath Cardiovascular: DENIES: Chest pain, Palpitations Musculoskeletal: COMPLAINS OF: Joint pain Integumentary: DENIES: Pruritus, Rash Past Family Social History Past Medical History Severe rheumatoid arthritis Osteoarthritis Osteoporosis Anxiety disorder Hypertension Hyperlipidemia Atrial fibrillation CAD Anemia CHF Depression Past Surgical History Inguinal hernia repair. No abdominal operations. Reported Medications Reported Meds & Active Scripts Active Reported Promethazine (Promethazine HCl) 12.5 Mg Tab 12.5 Mg PO Q6H PRN Ondansetron (Ondansetron HCl) 4 Mg Tab 1 Tab PO Q6HR PRN Prochlorperazine Supp (Prochlorperazine) 25 Mg Supp 25 Mg RECTAL Q12HR PRN Phenergan Supp (Promethazine HCl) 25 Mg Supp 25 Mg RECTAL Q6H PRN Zantac (Ranitidine HCl) 150 Mg Tab 150 Mg PO BID Tubersol (Tuberculin Ppd) 5 Unit/0.1 Ml Inj 5 Units I-DERMAL ONCE EVERY 365 DAYS PRN Refresh Lacri-Lube Opth Ointment (Artificial Tear Opth Ointment) 1 Oint 0.5 Inch EACH EYE HS Nitrostat SL (Nitroglycerin) 0.4 Mg Subl 0.4 Mg SL DIRECTED 1 tablet under the tongue as needed for chest pain. Repeat every 5 minutes for a total of 3 DOSES or call 911 if NO relief. Aspir-81 (Aspirin) 81 Mg Tabdr 2 Chew PO DAILY Digoxin 0.125 Mg Tab 0.125 Mg PO DAILY Prednisone 10 Mg Tab 10 Mg PO DAILY [place] (Hydrocodone-Acetaminophen) 5-325 mg Tab 1 Tab PO Q6H PRN Allergies: Coded Allergies: No Known Allergies (Unverified , 08/03/16) Active Ordered Medications Current Medications Medications (Trade) Dose Ordered Sig/Varun Route Start Time Stop Time Status Last Admin Pantoprazole Sodium 80 mg/ Sodium Chloride 100 ml @ 10 mls/hr Q10H IV 08/03/16 21:15 08/04/16 07:15 (NS 1000 ml Inj) 1,000 ml @ 100 mls/hr Q10H IV 08/03/16 22:12 08/04/16 08:12 (NS Flush) 2 ml UNSCH PRN FLUSH 08/03/16 22:15 (NS Flush) 2 ml BID FLUSH 08/04/16 09:00 08/04/16 09:00 (Zofran Inj) 4 mg Q6H PRN IVP 08/03/16 22:15 (Narcan Inj) 0.4 mg UNSCH PRN IV 08/03/16 22:15 Miscellaneous Information 1 Q361D XX 08/04/16 03:15 (Chlorhexidine 2% Cloth) 3 pack Taper DAILY@04 TOP 08/04/16 04:00 07/31/17 03:59 08/04/16 04:00 Chlorhexidine Gluconate 3 pack 3 pack UNSCH PRN TOP 08/04/16 03:15 Potassium Chloride 100 ml @ 50 mls/hr Q2H PRN IV 08/04/16 08:00 (KCl 20 Meq Premix Inj) 100 ml @ 50 mls/hr Q2H PRN IV 08/04/16 08:00 Potassium Chloride 40 meq 40 meq UNSCH PRN PO/TUBE 08/04/16 08:00 Potassium Chloride 100 ml @ 25 mls/hr UNSCH PRN IV 08/04/16 08:00 Potassium Chloride 100 ml @ 50 mls/hr Q2H PRN IV 08/04/16 08:00 (Magnesium Sulfate Inj/NS Inj) 100 ml @ 50 mls/hr UNSCH PRN IV 08/04/16 08:00 Magnesium Oxide 800 mg 800 mg UNSCH PRN PO 08/04/16 08:00 (Magnesium Sulfate Inj/NS Inj) 100 ml @ 50 mls/hr UNSCH PRN IV 08/04/16 08:00 Potassium Phosphate 2000 mg 2,000 mg Q4H PRN PO 08/04/16 08:00 (Sodium Phosphate Inj/NS 250 ml Inj) 250 ml @ 42 mls/hr UNSCH PRN IV 08/04/16 08:00 (KCl 40 Meq/30 ml Liq) 40 meq UNSCH PRN PO/TUBE 08/04/16 08:00 Potassium Phosphate 2000 mg 2,000 mg UNSCH PRN PO/TUBE 08/04/16 08:00 Potassium Phosphate 30 mmol/ Sodium Chloride 260 ml @ 42 mls/hr UNSCH PRN IV 08/04/16 08:00 (Cipro 400 Mg Premix) 200 ml @ 200 mls/hr Q12H IV 08/04/16 09:00 08/04/16 10:05 (Lacrilube Opht Oint) 1 applic HS EACH EYE 08/04/16 21:00 (Lanoxin) 0.125 mg DAILY PO 08/05/16 09:00 Family History Noncontributory Social History His daughter present with him. He lives in a [facility]. No alcohol tobacco or drug use. Physical Exam Vital Signs Vital Signs Date Time Temp Pulse Resp B/P Pulse Ox O2 Delivery O2 Flow Rate FiO2 08/04/16 09:10 97 Nasal Cannula 2.00 08/04/16 04:50 96 Nasal Cannula 2.00 08/04/16 04:00 107 08/04/16 02:10 97.7 124 22 127/88 96 08/03/16 22:48 83 16 153/68 95 Room Air 08/03/16 20:34 98 18 135/76 96 Room Air 08/03/16 19:08 103 18 118/65 97 Room Air 08/03/16 17:34 98 Room Air 08/03/16 17:21 98.7 83 16 117/57 96 Physical Exam GENERAL: Awake and alert. No acute distress. Cooperative. Frail. Eyes are closed. HEAD: Normocephalic. Atraumatic. CHEST: Lungs clear to auscultation bilaterally with no wheezing or rhonchi. No respiratory distress. CARDIOVASCULAR: Regular rate and rhythm. ABDOMEN: Mild distention. Nontender. No rebound or guarding. No abdominal scars. NG with minimal coffee ground appearing output. EXTREMITIES: No cyanosis or edema. Severe deformities of hands. SKIN: Warm, dry, nonjaundiced. Laboratory Laboratory Tests Test 08/03/16 08/03/16 08/03/16 08/03/16 17:55 20:21 21:30 23:15 White Blood Count 20.8 Red Blood Count 4.40 Hemoglobin 11.0 10.2 Hematocrit 35.3 32.9 Mean Corpuscular Volume 80.4 Mean Corpuscular Hemoglobin 25.0 Mean Corpuscular Hemoglobin 31.1 Concent Red Cell Distribution Width 19.2 Platelet Count 381 Mean Platelet Volume 8.0 Neutrophils (%) (Auto) 90.4 Lymphocytes (%) (Auto) 2.8 Monocytes (%) (Auto) 6.2 Eosinophils (%) (Auto) 0.0 Basophils (%) (Auto) 0.6 Neutrophils # (Auto) 18.8 Lymphocytes # (Auto) 0.6 Monocytes # (Auto) 1.3 Eosinophils # (Auto) 0.0 Basophils # (Auto) 0.1 CBC Comment DIFF FINAL Differential Comment Prothrombin Time 10.8 Prothromb Time International 1.0 Ratio Activated Partial 23.8 Thromboplast Time Sodium Level 142 Potassium Level 4.2 Chloride Level 104 Carbon Dioxide Level 29.1 Anion Gap 9 Blood Urea Nitrogen 31 Creatinine 1.12 Estimat Glomerular Filtration 62 Rate Random Glucose 129 Calcium Level 8.7 Total Bilirubin 0.6 Aspartate Amino Transf 37 (AST/SGOT) Alanine Aminotransferase 20 (ALT/SGPT) Alkaline Phosphatase 101 Total Protein 7.3 Albumin 3.0 Lipase 77 Blood Type O POSITIVE Antibody Screen NEGATIVE Crossmatch Leukocyte-Reduced Red Blood Cells Blood Bank Comment Urine Color YELLOW Urine Turbidity CLOUDY Urine pH 6.0 Urine Specific [place] 1.023 Urine Protein 300 Urine Glucose (UA) NEG Urine Ketones NEG Urine Occult Blood LARGE Urine Nitrite NEG Urine Bilirubin NEG Urine Urobilinogen LESS THAN 2.0 Urine Leukocyte Esterase LARGE Urine RBC Urine WBC Urine WBC Clumps MANY Urine Bacteria MANY Urine Mucus MANY Microscopic Urinalysis Comment CATH-CULTURE IND Lactic Acid Level 2.0 Test 08/04/16 08/04/16 08/04/16 02:00 04:50 06:44 Nasal Screen MRSA (PCR) NEGATIVE White Blood Count 19.3 Red Blood Count 4.15 Hemoglobin 10.3 9.8 Hematocrit 33.3 31.1 Mean Corpuscular Volume 80.2 Mean Corpuscular Hemoglobin 24.9 Mean Corpuscular Hemoglobin 31.0 Concent Red Cell Distribution Width 18.8 Platelet Count 327 Mean Platelet Volume 7.7 Neutrophils (%) (Auto) 91.7 Lymphocytes (%) (Auto) 2.2 Monocytes (%) (Auto) 5.9 Eosinophils (%) (Auto) 0.0 Basophils (%) (Auto) 0.2 Neutrophils # (Auto) 17.7 Lymphocytes # (Auto) 0.4 Monocytes # (Auto) 1.1 Eosinophils # (Auto) 0.0 Basophils # (Auto) 0.0 CBC Comment AUTO DIFF Differential Total Cells 100 Counted Neutrophils % (Manual) 87 Band Neutrophils % 5 Lymphocytes % 2 Monocytes % 6 Neutrophils # (Manual) 17.8 Differential Comment FINAL DIFF MANUAL Platelet Estimate NORMAL Platelet Morphology Comment NORMAL Ovalocytes 1+ Sodium Level 147 Potassium Level 3.4 Chloride Level 110 Carbon Dioxide Level 28.0 Anion Gap 9 Blood Urea Nitrogen 29 Creatinine 0.98 Estimat Glomerular Filtration 72 Rate Random Glucose 128 Calcium Level 8.1 Phosphorus Level 3.6 Total Bilirubin 0.5 Aspartate Amino Transf 21 (AST/SGOT) Alanine Aminotransferase 15 (ALT/SGPT) Alkaline Phosphatase 88 Total Protein 6.5 Albumin 2.7 Date/Time Procedure Status Source Growth 08/03/16 21:50 Aerobic Blood Culture - Preliminary Resulted Blood Peripheral NO GROWTH IN 1 DAY 08/03/16 21:50 Anaerobic Blood Culture - Preliminary Resulted Blood Peripheral NO GROWTH IN 1 DAY 08/03/16 20:21 Urine Culture Received Urine Catheterized Urine Pending Result Diagram: 08/04/16 0644 08/04/16 0450 Imaging Last Impressions Chest X-Ray 08/03/16 0000 Signed Impressions: Service Date/Time: Wednesday, August 03, 2016 19:32 - CONCLUSION: Interstitial lung disease predominantly within the bases. Interstitial pneumonitis versus early congestion should be considered. Dane Schumacher MD Abdomen/Pelvis CT 08/03/16 0000 Signed Impressions: Service Date/Time: Wednesday, August 03, 2016 19:36 - CONCLUSION: Proximal to mid small bowel ileus with acute transition characteristic of an obstructing adhesion. No evidence of discrete mass. Bilateral nephrolithiasis without evidence of hydronephrosis. Left renal cyst. Fecal impaction in rectum. Dane Schumacher MD Assessment and Plan Assessment and Plan 89-year-old male with fecal impaction, urinary tract infection, and ileus versus partial small bowel obstruction I recommend a small bowel follow-through. I will order tap water enema. It is possible he has an ileus secondary to fecal impaction and urinary tract infection. He has never had any abdominal surgery to cause adhesive obstruction. I discussed this in detail with the patient and his daughter. Erik Mclain MD Aug 04, 2016 12:27
--- NOTE | 2016-08-04 12:57 | RADRPT ---
EXAM DATE/TIME: 08/03/2016 18:14 [facility] COMPARISON: No previous studies available for comparison. INDICATIONS : Nausea, vomiting. Evaluate for obstruction. MEDICAL HISTORY : Hypertension. Congestive heart failure. Arthritis. SURGICAL HISTORY : Inguinal hernia repair. ENCOUNTER: Initial ACUITY: 1 day PAIN SCORE: 0/10 LOCATION: Abdomen. FINDINGS: There is marked generalized distention of the small intestinal tract. The colon contains gas and stoo l. Large fecal bolus is identified in the rectum. There is no evidence of free air or significant mass effect. Focal calcifications are seen in the right upper quadrant. CONCLUSION: Small bowel obstructive pattern. Large fecal bolus in the rectum characteristic of a fecal impaction. No evidence of free air. Right upper quadrant calcification characteristic of either cholelithiasis or nephrolithiasis. Dane Schumacher MD on August 03, 2016 at 18:48 Board Certified Radiologist. This report was verified electronically.
[2016-08-04 13:17] LABS: HEMATOCRIT 30.7 % (39.0-51.0)
[2016-08-04] MEDS ORDERED: DIATRIZOATE MEGLUM/DIATRIZOATE SOD 120 ML BTL (for RAD DIAG) NG ONE (14:40)
[2016-08-04] MEDS ORDERED: MORPHINE SULFATE 4 MG/ML INJ IV PRN (19:15)
[2016-08-04] MEDS: ARTIFICIAL TEARS OPTH OINT 3.5 APPLIC/3.5 GM TUBO EACH EYE SCH (20:01)
[2016-08-05] VITALS (12 sets, daily range): BP systolic 102–134; BP diastolic 57–68; PULSE 100–109; RESP 16–23; TEMP 98.1–99.3; O2SAT 92–99
[2016-08-05 00:47] LABS: HEMATOCRIT 29.3 % (39.0-51.0)
[2016-08-05 00:48] LABS: REVIEW FLAG FINAL
[2016-08-05] MEDS: CHLORHEXIDINE GLUCONATE 2 % 1 PACK (2 CLOTHS) TOP SCH (02:31)
[2016-08-05] MEDS: SODIUM CHLOR 0.9% 1000 ML INJ 1,000 ML IV SCH (02:31)
[2016-08-05] MEDS: PANTOPRAZOLE INJ 80 MG in SODIUM CHLORIDE 0.9% INJ 100 ML IV SCH ×3 (02:32→19:42)
[2016-08-05 04:38] LABS: HEMATOCRIT 29.6 % (39.0-51.0); REVIEW FLAG FINAL
[2016-08-05] MEDS: CIPROFLOXACIN 400 MG PREMIX 200 ML IV SCH ×2 (08:02→20:52)
[2016-08-05] MEDS: SODIUM CHLORIDE 0.9% FLUSH 5 ML FLUSH FLUSH SCH ×2 (08:02→19:42)
--- NOTE | 2016-08-05 08:47 | RADRPT ---
EXAM DATE/TIME: 08/04/2016 14:39 [facility] COMPARISON: No previous studies available for comparison. INDICATIONS : Evalaute for obstruction. FLUORO TIME: 0 minutes IMAGE COUNT: 11 CONTRAST: Gastroguillermo IMAGING TIME(S): 15 min, 30 min, 4 [id number], 17 hrs. MEDICAL HISTORY : Hypertension. Congestive heart failure. Arthritis. SURGICAL HISTORY : Inguinal hernia repair. ENCOUNTER: Initial ACUITY: 1 day PAIN SCORE: 5/10 LOCATION: Abdomen FINDINGS: Preliminary film is unremarkable. The stomach is grossly unremarkable. Majority of the oral contrast remains within the stomach. Inadeq uate contrast within the small bowel. Examination of the small bowel demonstrates normal mucosal pattern involving the jejunum and ileum. There is diffuse small bowel dilatation. CONCLUSION: Diffuse small bowel dilatation which can be seen with ileus or partial obstruction. Yannick Parrish MD on August 05, 2016 at 8:43 Board Certified Radiologist. This report was verified electronically.
[2016-08-05 08:52] LABS: HEMATOCRIT 28.9 % (39.0-51.0); REVIEW FLAG FINAL
[2016-08-05] MEDS ORDERED: DIGOXIN 0.125 MG TAB PO SCH (09:00)
[2016-08-05] MEDS: DIGOXIN 0.5 MG/2 ML VIAL IV PUSH SCH (10:05)
[2016-08-05] MEDS ORDERED: VANCOMYCIN INJ 1,000 MG in SODIUM CHLOR 0.9% 250 ML INJ 250 ML IV SCH (10:30)
[2016-08-05] MEDS ORDERED: Vancomycin Consult Pharmacy 1 EA XX SCH (10:30)
[2016-08-05] MEDS ORDERED: VANCOMYCIN INJ 1,250 MG in SODIUM CHLOR 0.9% 250 ML INJ 250 ML IV SCH (12:00)
[2016-08-05 12:53] LABS: AUTOMATED NEUTROPHIL # 10.5 TH/MM3 (1.8-7.7); BASOPHIL % 0.2 % (0.0-2.0); EOSINOPHIL % 0.1 % (0.0-4.0); LYMPH % 4.1 % (9.0-44.0); LYMPHOCYTE # 0.5 TH/MM3 (1.0-4.8); MEAN CELL VOLUME 80.3 FL (80.0-100.0); MEAN CORPUSCULAR HEMOGLOBIN 24.8 PG (27.0-34.0); MONO % 6.2 % (0.0-8.0); NEUT % 89.4 % (16.0-70.0); PLATELET COUNT 256 TH/MM3 (150-450); RED BLOOD COUNT 3.48 MIL/MM3 (4.50-5.90); RED CELL DISTRIBUTION WIDTH 18.5 % (11.6-17.2); WHITE BLOOD COUNT 11.8 TH/MM3 (4.0-11.0)
[2016-08-05 12:54] LABS: HEMO FLAGS AUTO DIFF
--- NOTE | 2016-08-05 13:21 | RADRPT ---
EXAM DATE/TIME: 08/05/2016 12:44 [facility] COMPARISON: ABDOMEN FLAT & UPRIGHT, August 03, 2016, 18:14. INDICATIONS : Obstruction MEDICAL HISTORY : Hypertension. Congestive heart failure. Arthritis. SURGICAL HISTORY : Inguinal hernia repair ENCOUNTER: Subsequent ACUITY: 2 days PAIN SCORE: 5/10 LOCATION: Abdomen FINDINGS: Supine view of the abdomen was performed. The abdominal bowel gas pattern again demonstrates a diste nded loops of small bowel in midabdomen definitely improved since the . No abnormal masses, calc ifications, or organomegaly is seen. The osseous structures are unremarkable. There is contrast in n ondilated colon CONCLUSION: Improved examination. 3 isolated loops of distended small bowel in the midabdomen markedly improved s jhon the . Franky Rothman MD on August 05, 2016 at 13:18 Board Certified Radiologist. This report was verified electronically.
--- NOTE | 2016-08-05 13:27 | HHI.PR ---
Subjective Subjective Notes He does not have complaints. He passed some flatus. SBFT yesterday showed small bowel dilatation. Objective Vitals/I&O Vital Signs Date Time Temp Pulse Resp B/P Pulse Ox O2 Delivery O2 Flow Rate FiO2 08/05/16 06:00 108 08/05/16 04:00 98.8 20 116/62 99 08/04/16 21:20 Nasal Cannula 2.00 Labs Laboratory Tests Test 08/05/16 08/05/16 08/05/16 08/05/16 00:33 04:16 08:08 11:06 Hemoglobin 9.1 9.5 9.0 8.6 Hematocrit 29.3 29.6 28.9 28.0 White Blood Count 11.8 Red Blood Count 3.48 Mean Corpuscular Volume 80.3 Mean Corpuscular Hemoglobin 24.8 Mean Corpuscular Hemoglobin 31.0 Concent Red Cell Distribution Width 18.5 Platelet Count 256 Mean Platelet Volume 8.5 Neutrophils (%) (Auto) 89.4 Lymphocytes (%) (Auto) 4.1 Monocytes (%) (Auto) 6.2 Eosinophils (%) (Auto) 0.1 Basophils (%) (Auto) 0.2 Neutrophils # (Auto) 10.5 Lymphocytes # (Auto) 0.5 Monocytes # (Auto) 0.7 Eosinophils # (Auto) 0.0 Basophils # (Auto) 0.0 CBC Comment AUTO DIFF Date/Time Procedure Status Source Growth 08/05/16 11:13 Aerobic Blood Culture Received Blood Peripheral Pending 08/05/16 11:13 Anaerobic Blood Culture Received Blood Peripheral Pending 08/03/16 21:50 Aerobic Blood Culture - Preliminary Resulted Blood Peripheral Gram Positive Cocci 08/03/16 21:50 Anaerobic Blood Culture - Preliminary Resulted Gram Positive Cocci 08/03/16 20:21 Urine Culture - Preliminary Resulted Urine Catheterized Urine Group D Enterococcus Radiology Last Impressions Chest X-Ray 08/03/16 0000 Signed Impressions: Service Date/Time: Wednesday, August 03, 2016 19:32 - CONCLUSION: Interstitial lung disease predominantly within the bases. Interstitial pneumonitis versus early congestion should be considered. Dane Schumacher MD Abdomen/Pelvis CT 08/03/16 0000 Signed Impressions: Service Date/Time: Wednesday, August 03, 2016 19:36 - CONCLUSION: Proximal to mid small bowel ileus with acute transition characteristic of an obstructing adhesion. No evidence of discrete mass. Bilateral nephrolithiasis without evidence of hydronephrosis. Left renal cyst. Fecal impaction in rectum. Dane Schumacher MD Narrative Exam Awake and alert, NAD nonlabored breathing Abd: moderate distention, nontender NG with light green output A/P Assessment and Plan 89 yo M with ileus vs pSBO, UTI. H/o severe RA and blindness. AM KUB appears to show contrast in colon. I do not think he is fully obstructed. Plan repeat KUB in am. He may need further enemas or more aggressive treatment for fecal impaction. Cont NGT. I ordered BMP to check electrolytes. No plan for operative intervention and I'm not sure if he would desire that or not if needed. Erik Mclain MD Aug 05, 2016 13:27
[2016-08-05 13:38] LABS: OVALOCYTES 1+ (NORMAL); SCAN/DIFF AUTO DIFF CONFIRMED
[2016-08-05 15:12] LABS: REVIEW FLAG FINAL
--- NOTE | 2016-08-05 15:14 | HHI.GIFU ---
Subjective Remarks Resting in bed. No BM, passing flatus. No significant abdominal discomfort. Requesting popsicle. (Madeleine Cid) Objective Vitals I&O Vital Signs Date Time Temp Pulse Resp B/P Pulse Ox O2 Delivery O2 Flow Rate FiO2 08/05/16 14:04 92 Nasal Cannula 2.00 08/05/16 11:15 92 Nasal Cannula 2.00 08/05/16 06:00 108 08/05/16 04:00 98.8 105 20 116/62 99 08/05/16 04:00 105 08/05/16 02:00 104 08/05/16 00:00 105 08/05/16 00:00 98.5 105 23 112/57 96 08/04/16 22:00 97 08/04/16 21:20 98 Nasal Cannula 2.00 08/04/16 20:00 95 08/04/16 20:00 98.7 95 12 128/57 92 08/04/16 16:00 98.2 100 20 118/58 96 I/O 08/04/16 08/04/16 08/04/16 08/05/16 08/05/16 08/05/16 07:00 15:00 23:00 07:00 15:00 23:00 Intake Total 325 ml 1195 ml 690 ml 909 ml 1825 ml Output Total 400 ml 500 ml 950 ml 1050 ml 475 ml Balance -75 ml 695 ml -260 ml -141 ml 1350 ml Intake IV Total 325 ml 1195 ml 690 ml 909 ml 1825 ml Output Urine Total 400 ml 300 ml 300 ml 300 ml 225 ml Gastric Drainage Total 200 ml 650 ml 750 ml 250 ml # Bowel Movements 5 4 1 0 0 Laboratory Laboratory Tests Test 08/05/16 08/05/16 08/05/16 08/05/16 00:33 04:16 08:08 11:06 Hemoglobin 9.1 9.5 9.0 8.6 Hematocrit 29.3 29.6 28.9 28.0 White Blood Count 11.8 Red Blood Count 3.48 Mean Corpuscular Volume 80.3 Mean Corpuscular Hemoglobin 24.8 Mean Corpuscular Hemoglobin 31.0 Concent Red Cell Distribution Width 18.5 Platelet Count 256 Mean Platelet Volume 8.5 Neutrophils (%) (Auto) 89.4 Lymphocytes (%) (Auto) 4.1 Monocytes (%) (Auto) 6.2 Eosinophils (%) (Auto) 0.1 Basophils (%) (Auto) 0.2 Neutrophils # (Auto) 10.5 Lymphocytes # (Auto) 0.5 Monocytes # (Auto) 0.7 Eosinophils # (Auto) 0.0 Basophils # (Auto) 0.0 CBC Comment AUTO DIFF Differential Comment AUTO DIFF CONFIRMED Ovalocytes 1+ Date/Time Procedure Status Source Growth 08/05/16 11:13 Aerobic Blood Culture Received Blood Peripheral Pending 08/05/16 11:13 Anaerobic Blood Culture Received Blood Peripheral Pending 08/03/16 21:50 Aerobic Blood Culture - Preliminary Resulted Blood Peripheral Gram Positive Cocci 08/03/16 21:50 Anaerobic Blood Culture - Preliminary Resulted Gram Positive Cocci 08/03/16 20:21 Urine Culture - Preliminary Resulted Urine Catheterized Urine Group D Enterococcus Imaging Last Impressions Abdomen X-Ray 08/05/16 0000 Signed Impressions: Service Date/Time: August 12:44 - CONCLUSION: Improved examination. 3 isolated loops of distended small bowel in the midabdomen markedly improved since the . Franky Rothman MD Small Bowel X-Ray 08/04/16 0000 Signed Impressions: Service Date/Time: Thursday, August 04, 2016 14:39 - CONCLUSION: Diffuse small bowel dilatation which can be seen with ileus or partial obstruction. 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 Interstitial pneumonitis versus early congestion should be considered. Dane Schumacher MD Abdomen/Pelvis CT 08/03/16 0000 Signed Impressions: Service Date/Time: Wednesday, August 03, 2016 19:36 - CONCLUSION: Proximal to mid small bowel ileus with acute transition characteristic of an obstructing adhesion. No evidence of discrete mass. Bilateral nephrolithiasis without evidence of hydronephrosis. Left renal cyst. Fecal impaction in rectum. Dane Schumacher MD Physical Exam HEENT: Normocephalic; atraumatic; no jaundice. Throat is clear. NECK: Neck is supple, no JVD, no lymphadenopathy. CHEST: CTA CARDIAC: RRR. ABDOMEN: Soft, nondistended, nontender; no hepatosplenomegaly; bowel sounds are present in all four quadrants. NGT with bilious material EXTREMITIES: No clubbing, cyanosis, or edema. SKIN: Normal; no rash; no jaundice. CHUTE WORKER: No focal deficits; alert and oriented times three. (Madeleine Cid) Assessment and Plan Plan ASSESSMENT: - PSBO vs. Ileus. Abdomen/Pelvis CT (08/03/16)----> Proximal to mid small bowel ileus with acute transition characteristic of an obstructing adhesion. No evidence of discrete mass. Bilateral nephrolithiasis without evidence of hydronephrosis. Left renal cyst. Fecal impaction in rectum. Small Bowel X-Ray (08/04/16)----> Diffuse small bowel dilatation which can be seen with ileus or partial obstruction. Abdomen X-Ray (08/05/16)----> Improved examination. 3 isolated loops of distended small bowel in the midabdomen markedly improved since the . No hx surgeries. Pt has not had bowel movement, but is passing flatus, gastric output decreasing. Abdomen soft, nondistended, nontender. Requesting popsicles. - Gi bleed/coffee ground emesis. Has bilious material. No active bleeding. 8.6 /28.0. - Leukocytosis/ UTI on cipro - Rheumatoid arthritis, A. fib, and heart failure per attending Plan: - NPO - Cont. NGT to LIWS - Okay from GI standpoint for popsicle as long as it is included in I/O - Cont. PPI - KUB in am - GS on the case - Monitor hh - Transfuse as needed - Supportive care - Consider EGD once condition improves - patient seen and examined by dr. Conway and myself and this note is written on his behalf. (Madeleine Cid) Physician Comments Patient was seen and examined Agree with above Continue with current supportive care Monitor labs General examination quite unremarkable I doubt that he has obstruction at this point Repeat x-rays in the morning and further recommendations shall depend on his hospital course (Karl Conway MD) Madeleine Cid Aug 05, 2016 15:14 Karl Conway MD Aug 05, 2016 19:12
--- NOTE | 2016-08-05 15:21 | HHI.PR ---
Subjective Remarks Pain control. Feeling okay. Still mild nausea. No complaint of shortness of breath or chest pain. Objective Vitals Vital Signs Date Time Temp Pulse Resp B/P Pulse Ox O2 Delivery O2 Flow Rate FiO2 08/05/16 14:04 92 Nasal Cannula 2.00 08/05/16 11:15 92 Nasal Cannula 2.00 08/05/16 06:00 108 08/05/16 04:00 98.8 105 20 116/62 99 08/05/16 04:00 105 08/05/16 02:00 104 08/05/16 00:00 105 08/05/16 00:00 98.5 105 23 112/57 96 08/04/16 22:00 97 08/04/16 21:20 98 Nasal Cannula 2.00 08/04/16 20:00 95 08/04/16 20:00 98.7 95 12 128/57 92 08/04/16 16:00 98.2 100 20 118/58 96 I/O 08/04/16 08/04/16 08/04/16 08/05/16 08/05/16 08/05/16 07:00 15:00 23:00 07:00 15:00 23:00 Intake Total 325 ml 1195 ml 690 ml 909 ml 1825 ml Output Total 400 ml 500 ml 950 ml 1050 ml 475 ml Balance -75 ml 695 ml -260 ml -141 ml 1350 ml Intake IV Total 325 ml 1195 ml 690 ml 909 ml 1825 ml Output Urine Total 400 ml 300 ml 300 ml 300 ml 225 ml Gastric Drainage Total 200 ml 650 ml 750 ml 250 ml # Bowel Movements 5 4 1 0 0 Result Diagram: 08/05/16 1445 08/04/16 0450 Imaging Last 48 hours Impressions Abdomen X-Ray 08/05/16 0000 Signed Impressions: Service Date/Time: August 12:44 - CONCLUSION: Improved examination. 3 isolated loops of distended small bowel in the midabdomen markedly improved since the . Franky Rothman MD Small Bowel X-Ray 08/04/16 0000 Signed Impressions: Service Date/Time: Thursday, August 04, 2016 14:39 - CONCLUSION: Diffuse small bowel dilatation which can be seen with ileus or partial obstruction. Yannick Parrish MD Objective Remarks GENERAL: This is a well-nourished, well-developed patient, in no apparent distress with NG tube in place. CARDIOVASCULAR: Regular rate and irregular rhythm RESPIRATORY: Clear to auscultation. Breath sounds equal bilaterally. No wheezes , rales, or rhonchi. GASTROINTESTINAL: Abdomen soft, non-tender, nondistended. Hypoactive bowel sounds MUSCULOSKELETAL: Extremities without clubbing, cyanosis, or edema. NEURO: Alert & Oriented x3 to person, place, time A/P Problem List: (1) GI bleed ICD Code: K92.2 Status: Acute (2) Small bowel obstruction ICD Code: K56.69 Status: Acute (3) UTI (urinary tract infection) ICD Code: N39.0 Status: Acute (4) Leukocytosis ICD Code: D72.829 Status: Acute Assessment and Plan Partial Small bowel obstruction versus ileus- status post small bowel follow through per general surgery continue bowel rest NG tube to low intermittent suction, pain control, IV fluid hydration, supportive care Acute upper GI bleed - GI following continue with IV PPI infusion drip Sepsis with UTI with enterococcus D -IV Cipro and IV vancomycin added until final sensitivities available. ID consult placed. History atrial fibrillationIV digoxin for rate control, Hypertension,all antihypertensives on hold secondary to sepsis. Hyperlipidemia CAD, stable Anemia, acute due to GI bleedcontinue to monitor serial hemoglobin Hypernatremiachanged to D5 half-normal saline + 20 meq KCL - Hypokalemiareplete DVT prophylaxisSCDs, no anticoagulation due to GI bleed Discharge Planning Pending clinical course, may need SNF versus home health care Problem Qualifiers (1) GI bleed: Qualified Code: K92.2 - Gastrointestinal hemorrhage, unspecified gastrointestinal hemorrhage type (2) UTI (urinary tract infection): Qualified Code: N30.01 - Acute cystitis with hematuria (3) Leukocytosis: Qualified Code: D72.829 - Leukocytosis, unspecified type Luci Wallace MD Aug 05, 2016 15:21
[2016-08-05 15:30] LABS: BICARBONATE 24.9 MEQ/L (21.0-32.0); POTASSIUM 3.5 MEQ/L (3.5-5.1)
[2016-08-05] MEDS: D5-1/2 NS + KCL 20 MEQ INJ 1,000 ML IV SCH (16:26)
[2016-08-05] MEDS: POTASSIUM CHLOR 20 MEQ PREMIX 100 ML IV PRN ×2 (19:05→22:02)
[2016-08-05] MEDS: ARTIFICIAL TEARS OPTH OINT 3.5 APPLIC/3.5 GM TUBO EACH EYE SCH (19:42)
--- NOTE | 2016-08-05 20:02 | PD.ID.CON ---
History of Present Illness Service ID Consult Requested By Dr LARSON Reason for Consult GPC bacteremia Primary Care Physician Leandro Alvarez MD Diagnoses: History of Present Illness 89 yo male patient,admitted with 1 day h/os coffee-ground color vomitus, abdominal pain. Lower abdomen. Emergency room workup revealed small bowel obstruction with a transition point. NG tube was placed at that time and 900 cc of coffee-ground emesis resulted. He cont to have NGT to suction Pt has minimal leukocytosis and no fever, but all 4 bottles of his cultures growing Enterococcus fecalis. Urine also positive for Enterococcus UA was markedly abnormal with immunerable WBC Review of Systems ROS Limitations: Poor Historian Past Family Social History Allergies: Coded Allergies: No Known Allergies (Unverified , 08/03/16) Past Medical History Osteoarthritis Osteoporosis Anxiety disorder Hypertension Hyperlipidemia Atrial fibrillation CAD Anemia CHF Depression Past Surgical History Reports a history of something ruptured Per EMR: Patient had inguinal hernia repair Active Ordered Medications Medications where reviewed in EMR Antibiotics Include: vanco cipro Family History Non-Contributory. Social History No smoking/alcohol abuse/drug abuse. snf resident. Physical Exam Vital Signs Vital Signs Date Time Temp Pulse Resp B/P Pulse Ox O2 Delivery O2 Flow Rate FiO2 08/05/16 16:00 99.3 105 23 106/58 99 08/05/16 14:04 92 Nasal Cannula 2.00 08/05/16 12:00 98.8 100 21 111/60 99 08/05/16 11:15 92 Nasal Cannula 2.00 08/05/16 08:00 98.1 109 16 102/57 99 08/05/16 06:00 108 08/05/16 04:00 98.8 105 20 116/62 99 08/05/16 04:00 105 08/05/16 02:00 104 08/05/16 00:00 105 08/05/16 00:00 98.5 105 23 112/57 96 08/04/16 22:00 97 08/04/16 21:20 98 Nasal Cannula 2.00 Physical Exam CONSTITUTIONAL/GENERAL: This is an adequately nourished patient, in no apparent distress. \SKIN: No jaundice, rashes, or lesions. Skin temperature appropriate. Not diaphoretic. HEAD: Atraumatic. Normocephalic. EYES: Pupils equal and round and reactive. Extraocular motions intact. No scleral icterus. No injection or drainage. Fundi not examined. ENT: Hearing markedly decreased. Nose without bleeding or purulent drainage. Throat without visible erythema, exudates, masses, or lesions. NECK: Trachea midline. Supple, nontender. No palpable thyroid enlargement or nodularity. CARDIOVASCULAR: Regular rate and rhythm without murmurs, gallops, or rubs. No JVD. Peripheral pulses symmetric. RESPIRATORY/CHEST: Symmetric, unlabored respirations. Clear to auscultation. Breath sounds equal bilaterally. No wheezes, rales, or rhonchi. GASTROINTESTINAL: Abdomen soft, non-tender, nondistended. No hepato-splenomegaly , or palpable masses. No guarding. Bowel sounds present. GENITOURINARY: Without palpable bladder distension. Zaragoza catheter in place. MUSCULOSKELETAL: Extremities without clubbing, cyanosis, + trace edema. No joint tenderness or effusion noted. No calf tenderness. No mottling or clubbing. LYMPHATICS: No palpable cervical or supraclavicular adenopathy. NEUROLOGICAL: Awake and alert. Motor and sensory grossly within normal limits. Follows commands. Normal speech Moves all extremities. PSYCHIATRIC: No obvious anxiety/depression. no apparent hallucinations or other psychotic thought process. Laboratory Laboratory Tests Test 08/05/16 08/05/16 08/05/16 08/05/16 00:33 04:16 08:08 11:06 Hemoglobin 9.1 9.5 9.0 8.6 Hematocrit 29.3 29.6 28.9 28.0 White Blood Count 11.8 Red Blood Count 3.48 Mean Corpuscular Volume 80.3 Mean Corpuscular Hemoglobin 24.8 Mean Corpuscular Hemoglobin 31.0 Concent Red Cell Distribution Width 18.5 Platelet Count 256 Mean Platelet Volume 8.5 Neutrophils (%) (Auto) 89.4 Lymphocytes (%) (Auto) 4.1 Monocytes (%) (Auto) 6.2 Eosinophils (%) (Auto) 0.1 Basophils (%) (Auto) 0.2 Neutrophils # (Auto) 10.5 Lymphocytes # (Auto) 0.5 Monocytes # (Auto) 0.7 Eosinophils # (Auto) 0.0 Basophils # (Auto) 0.0 CBC Comment AUTO DIFF Differential Comment AUTO DIFF CONFIRMED Ovalocytes 1+ Test 08/05/16 14:45 Hemoglobin 8.3 Hematocrit 27.0 Sodium Level 150 Potassium Level 3.5 Chloride Level 114 Carbon Dioxide Level 24.9 Anion Gap 11 Blood Urea Nitrogen 25 Creatinine 0.75 Estimat Glomerular Filtration 98 Rate Random Glucose 80 Calcium Level 8.0 Date/Time Procedure Status Source Growth 08/05/16 11:13 Aerobic Blood Culture Received Blood Peripheral Pending 08/05/16 11:13 Anaerobic Blood Culture Received Blood Peripheral Pending 08/03/16 21:50 Aerobic Blood Culture - Preliminary Resulted Blood Peripheral Gram Positive Cocci 08/03/16 21:50 Anaerobic Blood Culture - Preliminary Resulted Group D Enterococcus 08/03/16 20:21 Urine Culture - Preliminary Resulted Urine Catheterized Urine Group D Enterococcus Result Diagram: 08/05/16 1445 08/05/16 1445 Imaging Last Impressions Abdomen X-Ray 08/05/16 0000 Signed Impressions: Service Date/Time: August 12:44 - CONCLUSION: Improved examination. 3 isolated loops of distended small bowel in the midabdomen markedly improved since the . Franky Rothman MD Small Bowel X-Ray 08/04/16 0000 Signed Impressions: Service Date/Time: Thursday, August 04, 2016 14:39 - CONCLUSION: Diffuse small bowel dilatation which can be seen with ileus or partial obstruction. 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 Interstitial pneumonitis versus early congestion should be considered. Dane Schumacher MD Abdomen/Pelvis CT 08/03/16 0000 Signed Impressions: Service Date/Time: Wednesday, August 03, 2016 19:36 - CONCLUSION: Proximal to mid small bowel ileus with acute transition characteristic of an obstructing adhesion. No evidence of discrete mass. Bilateral nephrolithiasis without evidence of hydronephrosis. Left renal cyst. Fecal impaction in rectum. Dane Schumacher MD Assessment and Plan Assessment and Plan Enterococcus fecalis sepsis, UTI Partial small bowel obstruction - cont vancomycin - start ampicillin - dc Angela Valenzuela MD Aug 05, 2016 20:02
[2016-08-06] VITALS (14 sets, daily range): BP systolic 112–136; BP diastolic 59–65; PULSE 86–104; RESP 18–25; TEMP 97.3–99.5; O2SAT 93–97
[2016-08-06] MEDS: CHLORHEXIDINE GLUCONATE 2 % 1 PACK (2 CLOTHS) TOP SCH (00:38)
[2016-08-06] MEDS: AMPICILLIN INJ 2,000 MG in SODIUM CHLORIDE 0.9% INJ 100 ML IV SCH ×6 (00:38→21:23)
[2016-08-06] MEDS: PANTOPRAZOLE INJ 80 MG in SODIUM CHLORIDE 0.9% INJ 100 ML IV SCH ×2 (05:59→13:56)
[2016-08-06] MEDS: D5-1/2 NS + KCL 20 MEQ INJ 1,000 ML IV SCH ×2 (05:59→13:56)
[2016-08-06 06:39] LABS: AUTOMATED NEUTROPHIL # 9.6 TH/MM3 (1.8-7.7); BASOPHIL # 0.1 TH/MM3 (0-0.2); BASOPHIL % 0.6 % (0.0-2.0); EOSINOPHIL % 0.4 % (0.0-4.0); HEMATOCRIT 28.3 % (39.0-51.0); HEMO FLAGS DIFF FINAL; LYMPH % 5.6 % (9.0-44.0); LYMPHOCYTE # 0.6 TH/MM3 (1.0-4.8); MEAN CELL VOLUME 80.2 FL (80.0-100.0); MEAN CORPUSCULAR HEMOGLOBIN 25.4 PG (27.0-34.0); MEAN CORPUSCULAR HGB CONC 31.6 % (32.0-36.0); MONO % 6.2 % (0.0-8.0); NEUT % 87.2 % (16.0-70.0); PLATELET COUNT 258 TH/MM3 (150-450); RED BLOOD COUNT 3.53 MIL/MM3 (4.50-5.90); RED CELL DISTRIBUTION WIDTH 18.9 % (11.6-17.2)
--- NOTE | 2016-08-06 06:43 | RADRPT ---
EXAM DATE/TIME: 08/06/2016 05:40 [facility] COMPARISON: No previous studies available for comparison. INDICATIONS : Evaluate for obstruction. MEDICAL HISTORY : Hypertension. Congestive heart failure. Arthritis. SURGICAL HISTORY : Inguinal hernia repair. ENCOUNTER: Subsequent ACUITY: 1 week PAIN SCORE: Non-responsive. LOCATION: chest FINDINGS: A nasogastric tube descends in the stomach. There is contrast present in portions of colon which appe ars nondilated. Mild gaseous distention of some small bowel loops mainly in the upper central abdomen and left upper quadrant. No suspicious calcific densities are appreciated. There is nothing to sugge st mass or visceromegaly. There degenerative changes in the spine and hips. CONCLUSION: Nonspecific intestinal gas pattern Ed Marin MD on August 06, 2016 at 6:40 Board Certified Radiologist. This report was verified electronically.
[2016-08-06 07:08] LABS: BICARBONATE 26.4 MEQ/L (21.0-32.0); POTASSIUM 3.7 MEQ/L (3.5-5.1)
[2016-08-06] MEDS: SODIUM CHLORIDE 0.9% FLUSH 5 ML FLUSH FLUSH SCH ×2 (08:28→21:00)
[2016-08-06] MEDS: DIGOXIN 0.5 MG/2 ML VIAL IV PUSH SCH (08:28)
[2016-08-06] MEDS ORDERED: VANCOMYCIN 1,000 MG/NS 250 ML IV SCH ×2 (10:00)
--- NOTE | 2016-08-06 15:32 | HHI.PR ---
Subjective Remarks Patient states that he feels much better. No abdominal pain. No shortness of breath, and nausea better. No vomiting Objective Vitals Vital Signs Date Time Temp Pulse Resp B/P Pulse Ox O2 Delivery O2 Flow Rate FiO2 08/06/16 14:00 97 08/06/16 12:00 94 08/06/16 12:00 98.2 93 18 113/59 95 08/06/16 11:53 96 Nasal Cannula 2.00 08/06/16 10:00 86 08/06/16 08:00 97.3 93 21 126/60 95 08/06/16 08:00 93 08/06/16 06:00 96 08/06/16 04:00 98.8 102 22 136/65 97 08/06/16 04:00 102 08/06/16 02:00 100 08/06/16 00:00 98.7 97 25 123/61 95 08/06/16 00:00 97 08/05/16 22:00 109 08/05/16 21:00 96 Nasal Cannula 2.00 08/05/16 20:00 98.9 109 20 134/68 98 08/05/16 20:00 109 08/05/16 16:00 99.3 105 23 106/58 99 I/O 08/05/16 08/05/16 08/05/16 08/06/16 08/06/16 08/06/16 07:00 15:00 23:00 07:00 15:00 23:00 Intake Total 909 ml 1825 ml 1092 ml 1075 ml 1300 ml Output Total 1050 ml 475 ml 350 ml 475 ml 825 ml Balance -141 ml 1350 ml 742 ml 600 ml 475 ml Intake Oral 220 ml 220 ml 100 ml IV Total 909 ml 1825 ml 872 ml 855 ml 1200 ml Output Urine Total 300 ml 225 ml 350 ml 450 ml 800 ml Gastric Drainage Total 750 ml 250 ml 0 ml 25 ml 25 ml # Bowel Movements 0 0 0 0 0 Result Diagram: 08/06/1662208/06/16622 Objective Remarks GENERAL: This is a well-nourished, well-developed patient, in no apparent distress with NG tube in place. CARDIOVASCULAR: Regular rate and irregular rhythm RESPIRATORY: Clear to auscultation. Breath sounds equal bilaterally. No wheezes , rales, or rhonchi. GASTROINTESTINAL: Abdomen soft, non-tender, nondistended. Few bowel sounds MUSCULOSKELETAL: Extremities without clubbing, cyanosis, 1+ edema NEURO: Alert & Oriented x3 to person, place, time A/P Problem List: (1) GI bleed ICD Code: K92.2 Status: Acute (2) Small bowel obstruction ICD Code: K56.69 Status: Acute (3) UTI (urinary tract infection) ICD Code: N39.0 Status: Acute (4) Leukocytosis ICD Code: D72.829 Status: Acute Assessment and Plan Partial Small bowel obstruction versus ileus- status post small bowel follow through per general surgery , clinically improving with bowel rest NG tube to low intermittent suction, KUB improving and considering to clamp NG tube today pending general surgery's recommendation, pain control, IV fluid hydration, supportive care Acute upper GI bleed - GI following continue with IV PPI infusion drip, hemoglobin remained stable Sepsis with UTI with enterococcus D -IV ampicillin and IV vancomycin added until final sensitivities available. Appreciate ID recommendations. History atrial fibrillationIV digoxin for rate control, Hypertension,all antihypertensives on hold secondary to sepsis. Hyperlipidemia CAD, stable Anemia, acute due to GI bleedcontinue to monitor serial hemoglobin Hypernatremiaimproving on D5 half-normal saline + 20 meq KCL - Hypokalemiareplete DVT prophylaxisSCDs, no anticoagulation due to GI bleed Discharge Planning Pending clinical course, may need SNF versus home health care Problem Qualifiers (1) GI bleed: Qualified Code: K92.2 - Gastrointestinal hemorrhage, unspecified gastrointestinal hemorrhage type (2) UTI (urinary tract infection): Qualified Code: N30.01 - Acute cystitis with hematuria (3) Leukocytosis: Qualified Code: D72.829 - Leukocytosis, unspecified type Luci Wallace MD Aug 06, 2016 15:32
--- NOTE | 2016-08-06 16:51 | HHI.PR ---
Subjective Subjective Notes Patient feels better with no abdominal pain. Objective Vitals/I&O Vital Signs Date Time Temp Pulse Resp B/P Pulse Ox O2 Delivery O2 Flow Rate FiO2 08/06/16 14:00 97 08/06/16 12:00 98.2 18 113/59 95 08/06/16 11:53 Nasal Cannula 2.00 Labs Laboratory Tests Test 08/06/16 06:23 White Blood Count 11.0 Red Blood Count 3.53 Hemoglobin 9.0 Hematocrit 28.3 Mean Corpuscular Volume 80.2 Mean Corpuscular Hemoglobin 25.4 Mean Corpuscular Hemoglobin 31.6 Concent Red Cell Distribution Width 18.9 Platelet Count 258 Mean Platelet Volume 7.7 Neutrophils (%) (Auto) 87.2 Lymphocytes (%) (Auto) 5.6 Monocytes (%) (Auto) 6.2 Eosinophils (%) (Auto) 0.4 Basophils (%) (Auto) 0.6 Neutrophils # (Auto) 9.6 Lymphocytes # (Auto) 0.6 Monocytes # (Auto) 0.7 Eosinophils # (Auto) 0.0 Basophils # (Auto) 0.1 CBC Comment DIFF FINAL Differential Comment Sodium Level 146 Potassium Level 3.7 Chloride Level 113 Carbon Dioxide Level 26.4 Anion Gap 7 Blood Urea Nitrogen 20 Creatinine 0.87 Estimat Glomerular Filtration 83 Rate Random Glucose 98 Calcium Level 8.0 Date/Time Procedure Status Source Growth 08/05/16 11:13 Aerobic Blood Culture - Preliminary Resulted Blood Peripheral NO GROWTH IN 1 DAY 08/05/16 11:13 Anaerobic Blood Culture - Preliminary Resulted Blood Peripheral NO GROWTH IN 1 DAY 08/03/16 20:21 Urine Culture - Final Complete Urine Catheterized Urine Enterococcus Faecalis Radiology Last 24 hours Impressions Abdomen X-Ray 08/06/16 0600 Signed Impressions: Service Date/Time: Saturday, August 06, 2016 05:40 - CONCLUSION: Nonspecific intestinal gas pattern Ed Marin MD Last Impressions Chest X-Ray 08/03/16 0000 Signed Impressions: Service Date/Time: Wednesday, August 03, 2016 19:32 - CONCLUSION: Interstitial lung disease predominantly within the bases. Interstitial pneumonitis versus early congestion should be considered. Dane Schumacher MD Abdomen/Pelvis CT 08/03/16 0000 Signed Impressions: Service Date/Time: Wednesday, August 03, 2016 19:36 - CONCLUSION: Proximal to mid small bowel ileus with acute transition characteristic of an obstructing adhesion. No evidence of discrete mass. Bilateral nephrolithiasis without evidence of hydronephrosis. Left renal cyst. Fecal impaction in rectum. Dane Schumacher MD Cardiovascular: Regular Lungs: Clear Abdomen: Non-distended, Non-tender, BS normal A/P Assessment and Plan No current evidence for small bowel obstruction. Surgery will sign off and see when necessary. Wili Vasquez MD Aug 06, 2016 16:51
--- NOTE | 2016-08-06 17:44 | HHI.IDPN ---
Subjective Subjective Remarks doing better vss stable afebrile no abdominal pain Antibiotics ampicillin, vancomycin Allergies: Coded Allergies: No Known Allergies (Unverified , 08/03/16) Objective . Vital Signs Date Time Temp Pulse Resp B/P Pulse Ox O2 Delivery O2 Flow Rate FiO2 08/06/16 14:00 97 08/06/16 12:00 94 08/06/16 12:00 98.2 93 18 113/59 95 08/06/16 11:53 96 Nasal Cannula 2.00 08/06/16 10:00 86 08/06/16 08:00 97.3 93 21 126/60 95 08/06/16 08:00 93 08/06/16 06:00 96 08/06/16 04:00 98.8 102 22 136/65 97 08/06/16 04:00 102 08/06/16 02:00 100 08/06/16 00:00 98.7 97 25 123/61 95 08/06/16 00:00 97 08/05/16 22:00 109 08/05/16 21:00 96 Nasal Cannula 2.00 08/05/16 20:00 98.9 109 20 134/68 98 08/05/16 20:00 109 08/05/16 08/05/16 08/06/16 15:00 23:00 07:00 Intake Total 1825 ml 1092 ml 1075 ml Output Total 475 ml 350 ml 475 ml Balance 1350 ml 742 ml 600 ml Intake Oral 220 ml 220 ml IV Total 1825 ml 872 ml 855 ml Output Urine Total 225 ml 350 ml 450 ml Gastric Drainage Total 250 ml 0 ml 25 ml # Bowel Movements 0 0 0 . Laboratory Tests Test 08/05/16 08/05/16 08/05/16 08/05/16 00:33 04:16 08:08 11:06 Hemoglobin 9.1 GM/DL 9.5 GM/DL 9.0 GM/DL 8.6 GM/DL Hematocrit 29.3 % 29.6 % 28.9 % 28.0 % White Blood Count 11.8 TH/MM3 Red Blood Count 3.48 MIL/MM3 Mean Corpuscular Volume 80.3 FL Mean Corpuscular Hemoglobin 24.8 PG Mean Corpuscular Hemoglobin 31.0 % Concent Red Cell Distribution Width 18.5 % Platelet Count 256 TH/MM3 Mean Platelet Volume 8.5 FL Neutrophils (%) (Auto) 89.4 % Lymphocytes (%) (Auto) 4.1 % Monocytes (%) (Auto) 6.2 % Eosinophils (%) (Auto) 0.1 % Basophils (%) (Auto) 0.2 % Neutrophils # (Auto) 10.5 TH/MM3 Lymphocytes # (Auto) 0.5 TH/MM3 Monocytes # (Auto) 0.7 TH/MM3 Eosinophils # (Auto) 0.0 TH/MM3 Basophils # (Auto) 0.0 TH/MM3 CBC Comment AUTO DIFF Differential Comment AUTO DIFF CONFIRMED Ovalocytes 1+ Test 08/05/16 08/06/16 14:45 06:23 Hemoglobin 8.3 GM/DL 9.0 GM/DL Hematocrit 27.0 % 28.3 % White Blood Count 11.0 TH/MM3 Red Blood Count 3.53 MIL/MM3 Mean Corpuscular Volume 80.2 FL Mean Corpuscular Hemoglobin 25.4 PG Mean Corpuscular Hemoglobin 31.6 % Concent Red Cell Distribution Width 18.9 % Platelet Count 258 TH/MM3 Mean Platelet Volume 7.7 FL Neutrophils (%) (Auto) 87.2 % Lymphocytes (%) (Auto) 5.6 % Monocytes (%) (Auto) 6.2 % Eosinophils (%) (Auto) 0.4 % Basophils (%) (Auto) 0.6 % Neutrophils # (Auto) 9.6 TH/MM3 Lymphocytes # (Auto) 0.6 TH/MM3 Monocytes # (Auto) 0.7 TH/MM3 Eosinophils # (Auto) 0.0 TH/MM3 Basophils # (Auto) 0.1 TH/MM3 CBC Comment DIFF FINAL Differential Comment Laboratory Tests Test 08/05/16 08/06/16 14:45 06:23 Sodium Level 150 MEQ/L 146 MEQ/L Potassium Level 3.5 MEQ/L 3.7 MEQ/L Chloride Level 114 MEQ/L 113 MEQ/L Carbon Dioxide Level 24.9 MEQ/L 26.4 MEQ/L Anion Gap 11 MEQ/L 7 MEQ/L Blood Urea Nitrogen 25 MG/DL 20 MG/DL Creatinine 0.75 MG/DL 0.87 MG/DL Estimat Glomerular Filtration 98 ML/MIN 83 ML/MIN Rate Random Glucose 80 MG/DL 98 MG/DL Calcium Level 8.0 MG/DL 8.0 MG/DL Microbiology Date/Time Procedure Status Source Growth 08/03/16 20:21 Urine Culture - Final Complete Urine Catheterized Urine Enterococcus Faecalis 08/03/16 21:30 Aerobic Blood Culture - Preliminary Resulted Blood Peripheral Enterococcus Faecalis 08/03/16 21:30 Anaerobic Blood Culture - Preliminary Resulted Group D Enterococcus 08/03/16 21:50 Aerobic Blood Culture - Preliminary Resulted Blood Peripheral Enterococcus Faecalis 08/03/16 21:50 Anaerobic Blood Culture - Preliminary Resulted Enterococcus Faecalis 08/05/16 11:07 Aerobic Blood Culture - Preliminary Resulted Blood Peripheral NO GROWTH IN 1 DAY 08/05/16 11:07 Anaerobic Blood Culture - Preliminary Resulted Blood Peripheral NO GROWTH IN 1 DAY 08/05/16 11:13 Aerobic Blood Culture - Preliminary Resulted Blood Peripheral NO GROWTH IN 1 DAY 08/05/16 11:13 Anaerobic Blood Culture - Preliminary Resulted Blood Peripheral NO GROWTH IN 1 DAY Imaging Last Impressions Abdomen X-Ray 08/06/16 0600 Signed Impressions: Service Date/Time: Saturday, August 06, 2016 05:40 - CONCLUSION: Nonspecific intestinal gas pattern Ed Marin MD Small Bowel X-Ray 08/04/16 0000 Signed Impressions: Service Date/Time: Thursday, August 04, 2016 14:39 - CONCLUSION: Diffuse small bowel dilatation which can be seen with ileus or partial obstruction. 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 Interstitial pneumonitis versus early congestion should be considered. Dane Schumacher MD Abdomen/Pelvis CT 08/03/16 0000 Signed Impressions: Service Date/Time: Wednesday, August 03, 2016 19:36 - CONCLUSION: Proximal to mid small bowel ileus with acute transition characteristic of an obstructing adhesion. No evidence of discrete mass. Bilateral nephrolithiasis without evidence of hydronephrosis. Left renal cyst. Fecal impaction in rectum. Dane Schumacher MD Physical Exam CONSTITUTIONAL/GENERAL: This is an adequately nourished patient, in no apparent distress. \SKIN: No jaundice, rashes, or lesions. Skin temperature appropriate. Not diaphoretic. EYES: Pupils equal and round and reactive. Extraocular motions intact. No scleral icterus. No injection or drainage. Fundi not examined. ENT: Hearing markedly decreased. Nose without bleeding or purulent drainage. Throat without visible erythema, exudates, masses, or lesions. CARDIOVASCULAR: Regular rate and rhythm without murmurs, gallops, or rubs. No JVD. Peripheral pulses symmetric. RESPIRATORY/CHEST: Symmetric, unlabored respirations. Clear to auscultation. Breath sounds equal bilaterally. No wheezes, rales, or rhonchi. GASTROINTESTINAL: Abdomen soft, non-tender, nondistended. No hepato-splenomegaly , or palpable masses. No guarding. Bowel sounds present. GENITOURINARY: Without palpable bladder distension. Zaragoza catheter in place. MUSCULOSKELETAL: Extremities without clubbing, cyanosis, + trace edema. No mottling or clubbing. NEUROLOGICAL: Awake and alert. Motor and sensory grossly within normal limits. Follows commands. Normal speech Moves all extremities. PSYCHIATRIC: calm, cooperative Assessment & Plan Remarks Enterococcus fecalis sepsis, UTI _ Ent fecalis S ampicillin Partial small bowel obstruction - dc vancomycin - cont ampicillin - monitor repeat BC dw Angela Munguia MD Aug 06, 2016 17:44
--- NOTE | 2016-08-06 18:05 | HHI.GIFU ---
Subjective Remarks Patient is resting in bed, no signs of bleeding, bilious material in the tube, patient denies abdomen pain, requesting a popsicle (Hubert Torres) Objective Vitals I&O Vital Signs Date Time Temp Pulse Resp B/P Pulse Ox O2 Delivery O2 Flow Rate FiO2 08/06/16 14:00 97 08/06/16 12:00 94 08/06/16 12:00 98.2 93 18 113/59 95 08/06/16 11:53 96 Nasal Cannula 2.00 08/06/16 10:00 86 08/06/16 08:00 97.3 93 21 126/60 95 08/06/16 08:00 93 08/06/16 06:00 96 08/06/16 04:00 98.8 102 22 136/65 97 08/06/16 04:00 102 08/06/16 02:00 100 08/06/16 00:00 98.7 97 25 123/61 95 08/06/16 00:00 97 08/05/16 22:00 109 08/05/16 21:00 96 Nasal Cannula 2.00 08/05/16 20:00 98.9 109 20 134/68 98 08/05/16 20:00 109 I/O 08/05/16 08/05/16 08/05/16 08/06/16 08/06/16 08/06/16 07:00 15:00 23:00 07:00 15:00 23:00 Intake Total 909 ml 1825 ml 1092 ml 1075 ml 1300 ml Output Total 1050 ml 475 ml 350 ml 475 ml 825 ml Balance -141 ml 1350 ml 742 ml 600 ml 475 ml Intake Oral 220 ml 220 ml 100 ml IV Total 909 ml 1825 ml 872 ml 855 ml 1200 ml Output Urine Total 300 ml 225 ml 350 ml 450 ml 800 ml Gastric Drainage Total 750 ml 250 ml 0 ml 25 ml 25 ml # Bowel Movements 0 0 0 0 0 Laboratory Laboratory Tests Test 08/06/16 06:23 White Blood Count 11.0 Red Blood Count 3.53 Hemoglobin 9.0 Hematocrit 28.3 Mean Corpuscular Volume 80.2 Mean Corpuscular Hemoglobin 25.4 Mean Corpuscular Hemoglobin 31.6 Concent Red Cell Distribution Width 18.9 Platelet Count 258 Mean Platelet Volume 7.7 Neutrophils (%) (Auto) 87.2 Lymphocytes (%) (Auto) 5.6 Monocytes (%) (Auto) 6.2 Eosinophils (%) (Auto) 0.4 Basophils (%) (Auto) 0.6 Neutrophils # (Auto) 9.6 Lymphocytes # (Auto) 0.6 Monocytes # (Auto) 0.7 Eosinophils # (Auto) 0.0 Basophils # (Auto) 0.1 CBC Comment DIFF FINAL Differential Comment Sodium Level 146 Potassium Level 3.7 Chloride Level 113 Carbon Dioxide Level 26.4 Anion Gap 7 Blood Urea Nitrogen 20 Creatinine 0.87 Estimat Glomerular Filtration 83 Rate Random Glucose 98 Calcium Level 8.0 Date/Time Procedure Status Source Growth 08/05/16 11:13 Aerobic Blood Culture - Preliminary Resulted Blood Peripheral NO GROWTH IN 1 DAY 08/05/16 11:13 Anaerobic Blood Culture - Preliminary Resulted Blood Peripheral NO GROWTH IN 1 DAY 08/03/16 20:21 Urine Culture - Final Complete Urine Catheterized Urine Enterococcus Faecalis Imaging Last Impressions Abdomen X-Ray 08/06/16 0600 Signed Impressions: Service Date/Time: Saturday, August 06, 2016 05:40 - CONCLUSION: Nonspecific intestinal gas pattern Ed Marin MD Small Bowel X-Ray 08/04/16 0000 Signed Impressions: Service Date/Time: Thursday, August 04, 2016 14:39 - CONCLUSION: Diffuse small bowel dilatation which can be seen with ileus or partial obstruction. 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 Interstitial pneumonitis versus early congestion should be considered. Dane Schumacher MD Abdomen/Pelvis CT 08/03/16 0000 Signed Impressions: Service Date/Time: Wednesday, August 03, 2016 19:36 - CONCLUSION: Proximal to mid small bowel ileus with acute transition characteristic of an obstructing adhesion. No evidence of discrete mass. Bilateral nephrolithiasis without evidence of hydronephrosis. Left renal cyst. Fecal impaction in rectum. Dane Schumacher MD Physical Exam HEENT: Normocephalic; atraumatic; no jaundice. Throat is clear. NECK: Neck is supple, no JVD, no lymphadenopathy. CHEST: CTA CARDIAC: RRR. ABDOMEN: Soft, nondistended, nontender; no hepatosplenomegaly; bowel sounds are present in all four quadrants. NGT with bilious material EXTREMITIES: No clubbing, cyanosis, or edema. SKIN: Normal; no rash; no jaundice. 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 (Hubert Torres) Assessment and Plan Plan ASSESSMENT: - PSBO vs. Ileus. X-ray on (08/06/16) non specific intestinal gas pattern. Abdomen/Pelvis CT (08/03/16)----> Proximal to mid small bowel ileus with acute transition characteristic of an obstructing adhesion. No evidence of discrete mass. Bilateral nephrolithiasis without evidence of hydronephrosis. Left renal cyst. Fecal impaction in rectum. Small Bowel X-Ray (08/04/16)----> Diffuse small bowel dilatation which can be seen with ileus or partial obstruction. Abdomen X-Ray (08/05/16)----> Improved examination. 3 isolated loops of distended small bowel in the midabdomen markedly improved since the . No hx surgeries. Pt has not had bowel movement, but is passing flatus, gastric output decreasing. Abdomen soft, nondistended, nontender. Requesting popsicles. GS signed off - Gi bleed/coffee ground emesis. Has bilious material. No active bleeding. 9.0 .3 - Leukocytosis/ UTI - resolved on cipro - Rheumatoid arthritis, A. fib, and heart failure per attending Plan: - Clamp NGT, if clinically does well, can give clears, then NGT can be removed in am if continue to do okay - Clear liquids - NGT to LIWS for N/V - Cont. PPI - GS signed off - Monitor hh - Transfuse as needed - Consider EGD depending on clinical course - Supportive care - patient seen and examined by dr. Conway and myself and this note is written on his behalf. (Hubert Torres) Physician Comments Patient seen and examined Agree with above Continue with current supportive care Monitor labs Will monitor patient with NG tube clamped if he does well clinically then will advance to a clear liquid diet and remove the NG tube in the morning the case was discussed with the nurse Further recommendations shall depend on his hospital course possible endoscopy on Tuesday (Karl Conway MD) Hubert Torres Aug 06, 2016 18:05 Karl Conway MD Aug 06, 2016 23:49
[2016-08-06] MEDS: ARTIFICIAL TEARS OPTH OINT 3.5 APPLIC/3.5 GM TUBO EACH EYE SCH (21:24)
[2016-08-07] VITALS (14 sets, daily range): BP systolic 90–122; BP diastolic 46–62; PULSE 68–99; RESP 16–24; TEMP 98.4–99.8; O2SAT 92–97
[2016-08-07] MEDS: D5-1/2 NS + KCL 20 MEQ INJ 1,000 ML IV SCH ×3 (00:33→19:27)
[2016-08-07] MEDS: AMPICILLIN INJ 2,000 MG in SODIUM CHLORIDE 0.9% INJ 100 ML IV SCH ×7 (00:33→22:54)
[2016-08-07] MEDS: PANTOPRAZOLE INJ 80 MG in SODIUM CHLORIDE 0.9% INJ 100 ML IV SCH (03:40)
[2016-08-07] MEDS: CHLORHEXIDINE GLUCONATE 2 % 1 PACK (2 CLOTHS) TOP SCH (04:00)
[2016-08-07 06:30] LABS: BICARBONATE 24.3 MEQ/L (21.0-32.0); POTASSIUM 3.4 MEQ/L (3.5-5.1)
[2016-08-07 06:35] LABS: AUTOMATED NEUTROPHIL # 8.1 TH/MM3 (1.8-7.7); BASOPHIL % 0.3 % (0.0-2.0); EOSINOPHIL # 0.1 TH/MM3 (0-0.4); EOSINOPHIL % 0.8 % (0.0-4.0); HEMATOCRIT 27.8 % (39.0-51.0); HEMO FLAGS DIFF FINAL; LYMPH % 6.2 % (9.0-44.0); LYMPHOCYTE # 0.6 TH/MM3 (1.0-4.8); MEAN CORPUSCULAR HEMOGLOBIN 25.4 PG (27.0-34.0); MEAN CORPUSCULAR HGB CONC 31.8 % (32.0-36.0); MONO % 6.4 % (0.0-8.0); NEUT % 86.3 % (16.0-70.0); PLATELET COUNT 245 TH/MM3 (150-450); RED BLOOD COUNT 3.47 MIL/MM3 (4.50-5.90); RED CELL DISTRIBUTION WIDTH 18.7 % (11.6-17.2); WHITE BLOOD COUNT 9.3 TH/MM3 (4.0-11.0)
[2016-08-07] MEDS: DIGOXIN 0.5 MG/2 ML VIAL IV PUSH SCH (08:37)
[2016-08-07] MEDS: SODIUM CHLORIDE 0.9% FLUSH 5 ML FLUSH FLUSH SCH ×2 (09:00→19:28)
[2016-08-07] MEDS ORDERED: POTASSIUM CHLORIDE 10 MEQ CONTROLLED RELEASE TAB PO ONE (10:00)
[2016-08-07] MEDS: METOPROLOL TARTRATE 25 MG TAB PO SCH ×2 (12:07→19:26)
[2016-08-07] MEDS: predniSONE 10 MG TAB PO SCH (12:09)
--- NOTE | 2016-08-07 12:50 | HHI.GIFU ---
Subjective Remarks Resting in bed. Denies any nausea, vomiting, abdominal pain. Passing flatus. States he feels much better. (Madeleine Cid) Objective Vitals I&O Vital Signs Date Time Temp Pulse Resp B/P Pulse Ox O2 Delivery O2 Flow Rate FiO2 08/07/16 10:00 99 08/07/16 08:58 94 Nasal Cannula 2.00 08/07/16 08:07 99.3 98 16 115/46 97 08/07/16 08:00 99 08/07/16 06:00 99 08/07/16 04:00 98 08/07/16 04:00 99.8 98 16 122/61 97 08/07/16 00:00 97 08/07/16 00:00 99.3 97 20 118/61 92 08/06/16 22:00 94 08/06/16 20:44 96 Nasal Cannula 2.00 08/06/16 20:00 94 08/06/16 20:00 99.5 94 20 112/59 93 08/06/16 18:00 104 08/06/16 16:00 98.2 99 18 113/63 96 08/06/16 16:00 99 08/06/16 14:00 97 I/O 08/06/16 08/06/16 08/06/16 08/07/16 08/07/16 08/07/16 07:00 15:00 23:00 07:00 15:00 23:00 Intake Total 1075 ml 1300 ml 933 ml 937 ml Output Total 475 ml 825 ml 600 ml 600 ml Balance 600 ml 475 ml 333 ml 337 ml Intake Oral 220 ml 100 ml IV Total 855 ml 1200 ml 933 ml 937 ml Output Urine Total 450 ml 800 ml 600 ml 600 ml Gastric Drainage Total 25 ml 25 ml # Bowel Movements 0 0 0 0 Laboratory Laboratory Tests Test 08/07/16 05:37 White Blood Count 9.3 Red Blood Count 3.47 Hemoglobin 8.8 Hematocrit 27.8 Mean Corpuscular Volume 80.0 Mean Corpuscular Hemoglobin 25.4 Mean Corpuscular Hemoglobin 31.8 Concent Red Cell Distribution Width 18.7 Platelet Count 245 Mean Platelet Volume 8.2 Neutrophils (%) (Auto) 86.3 Lymphocytes (%) (Auto) 6.2 Monocytes (%) (Auto) 6.4 Eosinophils (%) (Auto) 0.8 Basophils (%) (Auto) 0.3 Neutrophils # (Auto) 8.1 Lymphocytes # (Auto) 0.6 Monocytes # (Auto) 0.6 Eosinophils # (Auto) 0.1 Basophils # (Auto) 0.0 CBC Comment DIFF FINAL Differential Comment Sodium Level 144 Potassium Level 3.4 Chloride Level 110 Carbon Dioxide Level 24.3 Anion Gap 10 Blood Urea Nitrogen 12 Creatinine 0.70 Estimat Glomerular Filtration 106 Rate Random Glucose 94 Calcium Level 8.2 Date/Time Procedure Status Source Growth 08/05/16 11:13 Aerobic Blood Culture - Preliminary Resulted Blood Peripheral NO GROWTH IN 2 DAYS 08/05/16 11:13 Anaerobic Blood Culture - Preliminary Resulted Blood Peripheral NO GROWTH IN 2 DAYS 08/03/16 21:50 Aerobic Blood Culture - Final Complete Blood Peripheral Enterococcus Faecalis 08/03/16 21:50 Anaerobic Blood Culture - Final Complete Enterococcus Faecalis 08/03/16 20:21 Urine Culture - Final Complete Urine Catheterized Urine Enterococcus Faecalis Imaging Last Impressions Abdomen X-Ray 08/06/16 0600 Signed Impressions: Service Date/Time: Saturday, August 06, 2016 05:40 - CONCLUSION: Nonspecific intestinal gas pattern Ed Marin MD Small Bowel X-Ray 08/04/16 0000 Signed Impressions: Service Date/Time: Thursday, August 04, 2016 14:39 - CONCLUSION: Diffuse small bowel dilatation which can be seen with ileus or partial obstruction. 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 Interstitial pneumonitis versus early congestion should be considered. Dane Schumacher MD Abdomen/Pelvis CT 08/03/16 0000 Signed Impressions: Service Date/Time: Wednesday, August 03, 2016 19:36 - CONCLUSION: Proximal to mid small bowel ileus with acute transition characteristic of an obstructing adhesion. No evidence of discrete mass. Bilateral nephrolithiasis without evidence of hydronephrosis. Left renal cyst. Fecal impaction in rectum. Dane Schumacher MD Physical Exam HEENT: Normocephalic; atraumatic; no jaundice. Throat is clear. NECK: Neck is supple, no JVD, no lymphadenopathy. CHEST: CTA CARDIAC: RRR. ABDOMEN: Soft, nondistended, nontender; no hepatosplenomegaly; bowel sounds are present in all four quadrants. EXTREMITIES: No clubbing, cyanosis, or edema. SKIN: Normal; no rash; no jaundice. 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 (Madeleine Cid) Assessment and Plan Plan ASSESSMENT: - PSBO vs. Ileus. Abdomen/Pelvis CT (08/03/16)----> Proximal to mid small bowel ileus with acute transition characteristic of an obstructing adhesion. No evidence of discrete mass. Bilateral nephrolithiasis without evidence of hydronephrosis. Left renal cyst. Fecal impaction in rectum. Small Bowel X-Ray (08/04/16)----> Diffuse small bowel dilatation which can be seen with ileus or partial obstruction. Abdomen X-Ray (08/06/16)----> non specific intestinal gas pattern. Improved examination. No hx surgeries. Passing flatus. NGT out. Tolerating clears. GS signed off. Will advance diet. - Gi bleed/coffee ground emesis. No active bleeding. 8.8/27.8. Change protonix gtt to BID dosing. EGD Tuesday. - Leukocytosis/ UTI. Abx per primary - Rheumatoid arthritis, A. fib, and heart failure per attending Plan: - Full liquids - D/C PRotonix gtt - Protonix 40mg IV BID - Monitor HH - Transfuse as necessary - Possible EGD Tuesday - NPO after MN Tuesday night - Consents for EGD - Supportive care - Patient seen and examined by Dr. Conway and myself and this note is written on his behalf. (Madeleine Cid) Physician Comments Patient seen and examined Agree with above Continue with current supportive care Monitor labs Resolved ileus or obstruction Plan for an EGD on Tuesday (Karl Conway MD) Madeleine Cid Aug 07, 2016 12:50 Karl Conway MD Aug 07, 2016 14:23
[2016-08-07] MEDS: PANTOPRAZOLE SODIUM 40 MG VIAL IV PUSH SCH ×2 (13:00→22:53)
--- NOTE | 2016-08-07 15:27 | HHI.IDPN ---
Subjective Subjective Remarks borderline fever BP is low 90/50 repeat BC sterile no abdominal pain Antibiotics ampicillin Allergies: Coded Allergies: No Known Allergies (Unverified , 08/03/16) Objective . Vital Signs Date Time Temp Pulse Resp B/P Pulse Ox O2 Delivery O2 Flow Rate FiO2 08/07/16 14:00 68 08/07/16 12:00 68 08/07/16 12:00 99.6 80 16 90/50 97 08/07/16 10:00 99 08/07/16 08:58 94 Nasal Cannula 2.00 08/07/16 08:07 99.3 98 16 115/46 97 08/07/16 08:00 99 08/07/16 06:00 99 08/07/16 04:00 98 08/07/16 04:00 99.8 98 16 122/61 97 08/07/16 00:00 97 08/07/16 00:00 99.3 97 20 118/61 92 08/06/16 22:00 94 08/06/16 20:44 96 Nasal Cannula 2.00 08/06/16 20:00 94 08/06/16 20:00 99.5 94 20 112/59 93 08/06/16 18:00 104 08/06/16 16:00 98.2 99 18 113/63 96 08/06/16 16:00 99 08/06/16 08/06/16 08/07/16 15:00 23:00 07:00 Intake Total 1300 ml 933 ml 937 ml Output Total 825 ml 600 ml 600 ml Balance 475 ml 333 ml 337 ml Intake Oral 100 ml IV Total 1200 ml 933 ml 937 ml Output Urine Total 800 ml 600 ml 600 ml Gastric Drainage Total 25 ml # Bowel Movements 0 0 0 . Laboratory Tests Test 08/06/16 08/07/16 06:23 05:37 White Blood Count 11.0 TH/MM3 9.3 TH/MM3 Red Blood Count 3.53 MIL/MM3 3.47 MIL/MM3 Hemoglobin 9.0 GM/DL 8.8 GM/DL Hematocrit 28.3 % 27.8 % Mean Corpuscular Volume 80.2 FL 80.0 FL Mean Corpuscular Hemoglobin 25.4 PG 25.4 PG Mean Corpuscular Hemoglobin 31.6 % 31.8 % Concent Red Cell Distribution Width 18.9 % 18.7 % Platelet Count 258 TH/MM3 245 TH/MM3 Mean Platelet Volume 7.7 FL 8.2 FL Neutrophils (%) (Auto) 87.2 % 86.3 % Lymphocytes (%) (Auto) 5.6 % 6.2 % Monocytes (%) (Auto) 6.2 % 6.4 % Eosinophils (%) (Auto) 0.4 % 0.8 % Basophils (%) (Auto) 0.6 % 0.3 % Neutrophils # (Auto) 9.6 TH/MM3 8.1 TH/MM3 Lymphocytes # (Auto) 0.6 TH/MM3 0.6 TH/MM3 Monocytes # (Auto) 0.7 TH/MM3 0.6 TH/MM3 Eosinophils # (Auto) 0.0 TH/MM3 0.1 TH/MM3 Basophils # (Auto) 0.1 TH/MM3 0.0 TH/MM3 CBC Comment DIFF FINAL DIFF FINAL Differential Comment Laboratory Tests Test 08/06/16 08/07/16 06:23 05:37 Sodium Level 146 MEQ/L 144 MEQ/L Potassium Level 3.7 MEQ/L 3.4 MEQ/L Chloride Level 113 MEQ/L 110 MEQ/L Carbon Dioxide Level 26.4 MEQ/L 24.3 MEQ/L Anion Gap 7 MEQ/L 10 MEQ/L Blood Urea Nitrogen 20 MG/DL 12 MG/DL Creatinine 0.87 MG/DL 0.70 MG/DL Estimat Glomerular Filtration 83 ML/MIN 106 ML/MIN Rate Random Glucose 98 MG/DL 94 MG/DL Calcium Level 8.0 MG/DL 8.2 MG/DL Microbiology Date/Time Procedure Status Source Growth 08/05/16 11:07 Aerobic Blood Culture - Preliminary Resulted Blood Peripheral NO GROWTH IN 2 DAYS 08/05/16 11:07 Anaerobic Blood Culture - Preliminary Resulted Blood Peripheral NO GROWTH IN 2 DAYS 08/05/16 11:13 Aerobic Blood Culture - Preliminary Resulted Blood Peripheral NO GROWTH IN 2 DAYS 08/05/16 11:13 Anaerobic Blood Culture - Preliminary Resulted Blood Peripheral NO GROWTH IN 2 DAYS Imaging Last Impressions Abdomen X-Ray 08/06/16 0600 Signed Impressions: Service Date/Time: Saturday, August 06, 2016 05:40 - CONCLUSION: Nonspecific intestinal gas pattern Ed Marin MD Small Bowel X-Ray 08/04/16 0000 Signed Impressions: Service Date/Time: Thursday, August 04, 2016 14:39 - CONCLUSION: Diffuse small bowel dilatation which can be seen with ileus or partial obstruction. 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 Interstitial pneumonitis versus early congestion should be considered. Dane Schumacher MD Abdomen/Pelvis CT 08/03/16 0000 Signed Impressions: Service Date/Time: Wednesday, August 03, 2016 19:36 - CONCLUSION: Proximal to mid small bowel ileus with acute transition characteristic of an obstructing adhesion. No evidence of discrete mass. Bilateral nephrolithiasis without evidence of hydronephrosis. Left renal cyst. Fecal impaction in rectum. Dane Schumacher MD Physical Exam CONSTITUTIONAL/GENERAL: This is an adequately nourished patient, in no apparent distress. \SKIN: No jaundice, rashes, or lesions. Skin temperature appropriate. Not diaphoretic. EYES: Pupils equal and round and reactive. Extraocular motions intact. No scleral icterus. No injection or drainage. Fundi not examined. ENT: Hearing markedly decreased. Nose without bleeding or purulent drainage. Throat without visible erythema, exudates, masses, or lesions. CARDIOVASCULAR: Regular rate and rhythm without murmurs, gallops, or rubs. No JVD. Peripheral pulses symmetric. RESPIRATORY/CHEST: Symmetric, unlabored respirations. Clear to auscultation. Breath sounds equal bilaterally. No wheezes, rales, or rhonchi. GASTROINTESTINAL: Abdomen soft, non-tender, nondistended. No hepato-splenomegaly , or palpable masses. No guarding. Bowel sounds present. GENITOURINARY: Without palpable bladder distension. Zaragoza catheter in place. MUSCULOSKELETAL: Extremities without clubbing, cyanosis, + trace edema. No mottling or clubbing. NEUROLOGICAL: Awake and alert. Motor and sensory grossly within normal limits. Follows commands. Normal speech Moves all extremities. PSYCHIATRIC: calm, cooperative Assessment & Plan Remarks Enterococcus fecalis sepsis, UTI _ Ent fecalis S ampicillin Partial small bowel obstruction - imrpvinh - cont ampicillin - monitor repeat BC - if repeat BC negative only short course (2 weeks) of abx is required dw Angela Munguia MD Aug 07, 2016 15:27
[2016-08-07] MEDS: ARTIFICIAL TEARS OPTH OINT 3.5 APPLIC/3.5 GM TUBO EACH EYE SCH (19:26)
[2016-08-07] MEDS ORDERED: PHARMACY ORDERED LAB XX ONE (21:45)
--- NOTE | 2016-08-07 22:20 | HHI.PR ---
Subjective Remarks Seen today around noon. Lying in bed. Appears comfortable. He denies any pain. He is alert and oriented 3. Objective Vital Signs Date Time Temp Pulse Resp B/P Pulse Ox O2 Delivery O2 Flow Rate FiO2 08/07/16 20:32 97 Nasal Cannula 3.00 08/07/16 20:00 95 08/07/16 20:00 98.4 95 24 120/62 95 08/07/16 18:00 68 08/07/16 16:00 68 08/07/16 16:00 98.7 80 16 99/60 97 08/07/16 14:00 68 08/07/16 12:00 68 08/07/16 12:00 99.6 80 16 90/50 97 08/07/16 10:00 99 08/07/16 08:58 94 Nasal Cannula 2.00 08/07/16 08:07 99.3 98 16 115/46 97 08/07/16 08:00 99 08/07/16 06:00 99 08/07/16 04:00 98 08/07/16 04:00 99.8 98 16 122/61 97 08/07/16 00:00 97 08/07/16 00:00 99.3 97 20 118/61 92 I/O 08/06/16 08/06/16 08/06/16 08/07/16 08/07/16 08/07/16 07:00 15:00 23:00 07:00 15:00 23:00 Intake Total 1075 ml 1300 ml 933 ml 937 ml 1050 ml 532 ml Output Total 475 ml 825 ml 600 ml 600 ml 550 ml 825 ml Balance 600 ml 475 ml 333 ml 337 ml 500 ml -293 ml Intake Oral 220 ml 100 ml 120 ml IV Total 855 ml 1200 ml 933 ml 937 ml 1050 ml 412 ml Output Urine Total 450 ml 800 ml 600 ml 600 ml 550 ml 825 ml Gastric Drainage Total 25 ml 25 ml # Bowel Movements 0 0 0 0 2 Result Diagram: 08/07/1637 08/07/1637 Objective Remarks GENERAL: Lying in bed. Appears comfortable. Alert and oriented 3. SKIN: Warm and dry. HEAD: Normocephalic. EYES: No scleral icterus. No injection or drainage. NECK: Supple, trachea midline. No JVD. CARDIOVASCULAR: Regular rate and rhythm without murmurs, gallops, or rubs. RESPIRATORY: Breath sounds equal bilaterally. No accessory muscle use. GASTROINTESTINAL: Abdomen soft, non-tender, nondistended. MUSCULOSKELETAL: No cyanosis, or edema. BACK: Nontender without obvious deformity. No CVA tenderness. A/P Assessment and Plan =====08/07/16 Replace potassium EGD tomorrow as per GI. Appreciate assistance. Continue ampicillin 2 week course for enterococcus faecalis. Follow-up repeat cultures from 08/05 //Partial Small bowel obstruction versus ileus- status post small bowel follow through per general surgery , clinically improving with bowel rest NG tube to low intermittent suction, KUB improved. -Surgery has signed off. Pain control, IV fluid hydration, supportive care -GI following. Appreciate assistance. //Acute anemia. //Acute upper GI bleed -Hold all anti-coagulation. - GI following continue with IV PPI infusion drip. -11 stable EGD tomorrow as per gastric urology. //Sepsis with UTI with enterococcus D //Enterococcus bacteremia -If final repeat blood cultures from 08/05 continue negative, Continue 2 week course of ampicillin as per infectious disease. -Follow up repeat blood cultures 08/05. //History atrial fibrillationcontinue IV digoxin for rate control, //Hypertension,all antihypertensives on hold secondary to sepsis. monitor blood pressure. //Hyperlipidemia //CAD, stable. -Holding anticoagulation due to GI bleed. //Hypernatremiaimproved on D5 half-normal saline + 20 meq KCL - -any fluids as ordered. Follow-up sodium tomorrow. //Hypokalemiareplete as necessary. //DVT prophylaxisSCDs, no anticoagulation due to GI bleed Discharge Planning EGD tomorrow 08/08 Pending clinical course, will likely need SNF. Appreciate case management assistance. Len Alvarez MD Aug 07, 2016 22:20
[2016-08-08] VITALS (15 sets, daily range): BP systolic 93–125; BP diastolic 55–72; PULSE 55–96; RESP 18–25; TEMP 97.8–99.4; O2SAT 96–100
[2016-08-08] MEDS: CHLORHEXIDINE GLUCONATE 2 % 1 PACK (2 CLOTHS) TOP SCH (03:48)
[2016-08-08] MEDS: D5-1/2 NS + KCL 20 MEQ INJ 1,000 ML IV SCH ×2 (03:48→19:28)
[2016-08-08] MEDS: AMPICILLIN INJ 2,000 MG in SODIUM CHLORIDE 0.9% INJ 100 ML IV SCH ×6 (03:48→23:21)
[2016-08-08] MEDS: METOPROLOL TARTRATE 25 MG TAB PO SCH ×2 (09:02→19:27)
[2016-08-08] MEDS: predniSONE 10 MG TAB PO SCH (09:02)
[2016-08-08] MEDS: DIGOXIN 0.5 MG/2 ML VIAL IV PUSH SCH (09:02)
[2016-08-08 09:13] LABS: AUTOMATED NEUTROPHIL # 8.1 TH/MM3 (1.8-7.7); BASOPHIL % 0.4 % (0.0-2.0); EOSINOPHIL # 0.1 TH/MM3 (0-0.4); EOSINOPHIL % 0.7 % (0.0-4.0); HEMO FLAGS DIFF FINAL; LYMPH % 6.4 % (9.0-44.0); LYMPHOCYTE # 0.6 TH/MM3 (1.0-4.8); MEAN CELL VOLUME 80.2 FL (80.0-100.0); MEAN CORPUSCULAR HEMOGLOBIN 25.2 PG (27.0-34.0); MEAN CORPUSCULAR HGB CONC 31.5 % (32.0-36.0); MONO % 7.1 % (0.0-8.0); NEUT % 85.4 % (16.0-70.0); PLATELET COUNT 241 TH/MM3 (150-450); RED BLOOD COUNT 3.24 MIL/MM3 (4.50-5.90); RED CELL DISTRIBUTION WIDTH 18.7 % (11.6-17.2); WHITE BLOOD COUNT 9.4 TH/MM3 (4.0-11.0)
[2016-08-08 09:36] LABS: MAGNESIUM 1.9 MG/DL (1.5-2.5); POTASSIUM 3.9 MEQ/L (3.5-5.1)
[2016-08-08] MEDS: PANTOPRAZOLE SODIUM 40 MG VIAL IV PUSH SCH ×2 (13:00→23:21)
--- NOTE | 2016-08-08 17:51 | HHI.GIFU ---
Subjective Remarks Patient resting in bed. Tolerating clear liquid diet. No nausea or vomiting. No abdominal pain. Discussed with patient further evaluation with EGD- procedure risk and benefits and he would like to proceed (Madeleine Cid) Objective Vitals I&O Vital Signs Date Time Temp Pulse Resp B/P Pulse Ox O2 Delivery O2 Flow Rate FiO2 08/08/16 16:38 70 08/08/16 16:00 70 08/08/16 16:00 98.0 78 18 104/58 97 08/08/16 14:00 70 08/08/16 12:00 97.8 60 20 112/56 97 08/08/16 12:00 70 08/08/16 10:00 70 08/08/16 10:00 70 08/08/16 08:34 100 Nasal Cannula 3.00 08/08/16 08:00 98.0 55 23 110/57 97 08/08/16 08:00 70 08/08/16 06:00 70 08/08/16 04:00 97.8 71 23 93/55 97 08/08/16 04:00 71 08/08/16 02:00 69 08/08/16 00:00 98.3 73 21 125/72 98 08/08/16 00:00 73 08/07/16 22:00 86 08/07/16 20:32 97 Nasal Cannula 3.00 08/07/16 20:00 95 08/07/16 20:00 98.4 95 24 120/62 95 08/07/16 18:00 68 I/O 08/07/16 08/07/16 08/07/16 08/08/16 08/08/16 08/08/16 07:00 15:00 23:00 07:00 15:00 23:00 Intake Total 937 ml 1050 ml 532 ml 829 ml 1180 ml Output Total 600 ml 550 ml 825 ml 150 ml 450 ml Balance 337 ml 500 ml -293 ml 679 ml 730 ml Intake Oral 120 ml 120 ml 380 ml IV Total 937 ml 1050 ml 412 ml 709 ml 800 ml Output Urine Total 600 ml 550 ml 825 ml 150 ml 450 ml # Bowel Movements 0 2 Laboratory Laboratory Tests Test 08/08/16 08:42 White Blood Count 9.4 Red Blood Count 3.24 Hemoglobin 8.2 Hematocrit 26.0 Mean Corpuscular Volume 80.2 Mean Corpuscular Hemoglobin 25.2 Mean Corpuscular Hemoglobin 31.5 Concent Red Cell Distribution Width 18.7 Platelet Count 241 Mean Platelet Volume 8.0 Neutrophils (%) (Auto) 85.4 Lymphocytes (%) (Auto) 6.4 Monocytes (%) (Auto) 7.1 Eosinophils (%) (Auto) 0.7 Basophils (%) (Auto) 0.4 Neutrophils # (Auto) 8.1 Lymphocytes # (Auto) 0.6 Monocytes # (Auto) 0.7 Eosinophils # (Auto) 0.1 Basophils # (Auto) 0.0 CBC Comment DIFF FINAL Differential Comment Sodium Level 143 Potassium Level 3.9 Chloride Level 110 Carbon Dioxide Level 24.0 Anion Gap 9 Blood Urea Nitrogen 14 Creatinine 0.82 Estimat Glomerular Filtration 88 Rate Random Glucose 91 Calcium Level 7.6 Phosphorus Level 1.9 Magnesium Level 1.9 Albumin 2.1 Date/Time Procedure Status Source Growth 08/05/16 11:13 Aerobic Blood Culture - Preliminary Resulted Blood Peripheral NO GROWTH IN 3 DAYS 08/05/16 11:13 Anaerobic Blood Culture - Preliminary Resulted Blood Peripheral NO GROWTH IN 3 DAYS 08/03/16 21:50 Aerobic Blood Culture - Final Complete Blood Peripheral Enterococcus Faecalis 08/03/16 21:50 Anaerobic Blood Culture - Final Complete Enterococcus Faecalis 08/03/16 20:21 Urine Culture - Final Complete Urine Catheterized Urine Enterococcus Faecalis Imaging Last Impressions Abdomen X-Ray 08/06/16 0600 Signed Impressions: Service Date/Time: Saturday, August 06, 2016 05:40 - CONCLUSION: Nonspecific intestinal gas pattern Ed Marin MD Small Bowel X-Ray 08/04/16 0000 Signed Impressions: Service Date/Time: Thursday, August 04, 2016 14:39 - CONCLUSION: Diffuse small bowel dilatation which can be seen with ileus or partial obstruction. 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 Interstitial pneumonitis versus early congestion should be considered. Dane Schumacher MD Abdomen/Pelvis CT 08/03/16 0000 Signed Impressions: Service Date/Time: Wednesday, August 03, 2016 19:36 - CONCLUSION: Proximal to mid small bowel ileus with acute transition characteristic of an obstructing adhesion. No evidence of discrete mass. Bilateral nephrolithiasis without evidence of hydronephrosis. Left renal cyst. Fecal impaction in rectum. Dane Schumacher MD Physical Exam HEENT: Normocephalic; atraumatic; no jaundice. CHEST: CTA CARDIAC: Irregular ABDOMEN: Soft, nondistended, nontender; no hepatosplenomegaly; bowel sounds are present in all four quadrants. EXTREMITIES: Deformities of bilateral hands SKIN: Normal; no rash; no jaundice. TECHNICAL CUSTOMER SUPPORT SPECIALIST: No focal deficits; alert and oriented times three. (Madeleine Cid) Assessment and Plan Plan ASSESSMENT: - PSBO vs. Ileus. X-ray on (08/06/16) non specific intestinal gas pattern. Abdomen/Pelvis CT (08/03/16)----> Proximal to mid small bowel ileus with acute transition characteristic of an obstructing adhesion. No evidence of discrete mass. Bilateral nephrolithiasis without evidence of hydronephrosis. Left renal cyst. Fecal impaction in rectum. Small Bowel X-Ray (08/04/16)----> Diffuse small bowel dilatation which can be seen with ileus or partial obstruction. Abdomen X-Ray (08/05/16)----> Improved examination. 3 isolated loops of distended small bowel in the midabdomen markedly improved since the . No hx surgeries. Abdomen soft, nondistended, nontender. Tolerating clears. GS signed off - Gi bleed/coffee ground emesis. No active bleeding. HH slowly trending down 8.2/26.0. EGD in am. - Leukocytosis/ UTI - resolved on cipro - Rheumatoid arthritis, A. fib, and heart failure per attending Plan: - Plan for egd in am - Obtain consents - NPO after MN - PPI - Monitor hh - Transfuse as needed - Supportive care - patient seen and examined by dr. Conway and myself and this note is written on his behalf. (Madeleine Cid) Physician Comments Patient Seen and examined Agree with above Continue with current supportive care Monitor labs Plan for an EGD tomorrow (Karl Conway MD) Madeleine Cid Aug 08, 2016 17:51 Karl Conway MD Aug 08, 2016 19:32
[2016-08-08] MEDS: ARTIFICIAL TEARS OPTH OINT 3.5 APPLIC/3.5 GM TUBO EACH EYE SCH (19:28)
[2016-08-08] MEDS: SODIUM CHLORIDE 0.9% FLUSH 5 ML FLUSH FLUSH SCH (19:29)
--- NOTE | 2016-08-08 23:55 | HHI.PR ---
Subjective Remarks Seen today around 1 PM. Patient again lying in bed. Says he feels well. Denies any chest pain or shortness of breath. Objective Vital Signs Date Time Temp Pulse Resp B/P Pulse Ox O2 Delivery O2 Flow Rate FiO2 08/08/16 22:00 86 08/08/16 20:52 99 Nasal Cannula 3.00 08/08/16 20:00 99.4 96 25 105/59 96 08/08/16 20:00 96 08/08/16 18:00 70 08/08/16 16:38 70 08/08/16 16:00 70 08/08/16 16:00 98.0 78 18 104/58 97 08/08/16 14:00 70 08/08/16 12:00 97.8 60 20 112/56 97 08/08/16 12:00 70 08/08/16 10:00 70 08/08/16 10:00 70 08/08/16 08:34 100 Nasal Cannula 3.00 08/08/16 08:00 98.0 55 23 110/57 97 08/08/16 08:00 70 08/08/16 06:00 70 08/08/16 04:00 97.8 71 23 93/55 97 08/08/16 04:00 71 08/08/16 02:00 69 08/08/16 00:00 98.3 73 21 125/72 98 08/08/16 00:00 73 I/O 08/07/16 08/07/16 08/07/16 08/08/16 08/08/16 08/08/16 07:00 15:00 23:00 07:00 15:00 23:00 Intake Total 937 ml 1050 ml 532 ml 829 ml 1180 ml 626 ml Output Total 600 ml 550 ml 825 ml 150 ml 450 ml 475 ml Balance 337 ml 500 ml -293 ml 679 ml 730 ml 151 ml Intake Oral 120 ml 120 ml 380 ml IV Total 937 ml 1050 ml 412 ml 709 ml 800 ml 626 ml Output Urine Total 600 ml 550 ml 825 ml 150 ml 450 ml 475 ml # Bowel Movements 0 2 Result Diagram: 08/08/16 0842 08/08/16 0842 Objective Remarks GENERAL: Lying in bed. Appears comfortable. Alert and oriented 3.no changes on exam. SKIN: Warm and dry. HEAD: Normocephalic. EYES: No scleral icterus. No injection or drainage. NECK: Supple, trachea midline. No JVD. CARDIOVASCULAR: Regular rate and rhythm without murmurs, gallops, or rubs. RESPIRATORY: Breath sounds equal bilaterally. No accessory muscle use. GASTROINTESTINAL: Abdomen soft, non-tender, nondistended. MUSCULOSKELETAL: No cyanosis, or edema. BACK: Nontender without obvious deformity. No CVA tenderness. A/P Assessment and Plan =====08/08/16 electrolytesStable GI planning for EGD Tomorrow,Tuesday Continue ampicillin 2 week course for enterococcus faecalis. Follow-up repeat cultures from 08/05 //Partial Small bowel obstruction versus ileus- status post small bowel follow through per general surgery , clinically improving with bowel rest NG tube to low intermittent suction, KUB improved. -Surgery has signed off. Pain control, IV fluid hydration, supportive care -GI following. Appreciate assistance. //Acute anemia. //Acute upper GI bleed -Hold all anti-coagulation. - GI following continue with IV PPI infusion drip. -11 stable EGD tomorrow as per gastric urology. //Sepsis with UTI with enterococcus D //Enterococcus bacteremia -If final repeat blood cultures from 08/05 continue negative, Continue 2 week course of ampicillin as per infectious disease. -Follow up repeat blood cultures 08/05. //History atrial fibrillationcontinue IV digoxin for rate control, //Hypertension,all antihypertensives on hold secondary to sepsis. monitor blood pressure. //Hyperlipidemia //CAD, stable. -Holding anticoagulation due to GI bleed. //Hypernatremiaimproved on D5 half-normal saline + 20 meq KCL - -any fluids as ordered. Follow-up sodium tomorrow. //Hypokalemiareplete as necessary. //DVT prophylaxisSCDs, no anticoagulation due to GI bleed Discharge Planning EGDtomorrow 08/09 ( initially had planned for 08/08) Pending clinical course, will likely need SNF. Appreciate case management assistance. Len Alvarez MD Aug 08, 2016 23:55
[2016-08-09] VITALS (13 sets, daily range): BP systolic 104–118; BP diastolic 52–68; PULSE 64–99; RESP 20–32; TEMP 98.2–99.9; O2SAT 94–98
[2016-08-09 02:38] LABS: AUTOMATED NEUTROPHIL # 7.1 TH/MM3 (1.8-7.7); BASOPHIL % 0.5 % (0.0-2.0); EOSINOPHIL # 0.1 TH/MM3 (0-0.4); HEMATOCRIT 24.2 % (39.0-51.0); HEMO FLAGS DIFF FINAL; LYMPH % 6.1 % (9.0-44.0); LYMPHOCYTE # 0.5 TH/MM3 (1.0-4.8); MEAN CELL VOLUME 78.7 FL (80.0-100.0); MEAN CORPUSCULAR HEMOGLOBIN 25.5 PG (27.0-34.0); MEAN CORPUSCULAR HGB CONC 32.4 % (32.0-36.0); MONO % 6.7 % (0.0-8.0); NEUT % 85.7 % (16.0-70.0); PLATELET COUNT 225 TH/MM3 (150-450); RED BLOOD COUNT 3.08 MIL/MM3 (4.50-5.90); RED CELL DISTRIBUTION WIDTH 18.7 % (11.6-17.2); WHITE BLOOD COUNT 8.3 TH/MM3 (4.0-11.0)
[2016-08-09] MEDS: AMPICILLIN INJ 2,000 MG in SODIUM CHLORIDE 0.9% INJ 100 ML IV SCH ×5 (02:55→20:41)
[2016-08-09] MEDS: CHLORHEXIDINE GLUCONATE 2 % 1 PACK (2 CLOTHS) TOP SCH (02:55)
[2016-08-09 03:00] LABS: BICARBONATE 24.8 MEQ/L (21.0-32.0); POTASSIUM 3.4 MEQ/L (3.5-5.1)
[2016-08-09] MEDS: predniSONE 10 MG TAB PO SCH (09:00)
[2016-08-09] MEDS: METOPROLOL TARTRATE 25 MG TAB PO SCH ×2 (09:04→20:40)
[2016-08-09] MEDS: SODIUM CHLORIDE 0.9% FLUSH 5 ML FLUSH FLUSH SCH ×2 (09:04→20:41)
[2016-08-09] MEDS: DIGOXIN 0.5 MG/2 ML VIAL IV PUSH SCH (09:05)
[2016-08-09] MEDS: D5-1/2 NS + KCL 20 MEQ INJ 1,000 ML IV SCH ×2 (10:43→20:41)
[2016-08-09 12:52] LABS: POTASSIUM 4.3 MEQ/L (3.5-5.1)
[2016-08-09] MEDS: PANTOPRAZOLE SODIUM 40 MG VIAL IV PUSH SCH (12:54)
[2016-08-09] MEDS ORDERED: PROPOFOL 200 MG/20 ML AMP IV ONE (18:42)
--- NOTE | 2016-08-09 18:59 | HHI.GIFU ---
Subjective Remarks feels ok no abdominal pain, no nausea or vomiting Objective Vitals I&O Vital Signs Date Time Temp Pulse Resp B/P Pulse Ox O2 Delivery O2 Flow Rate FiO2 08/09/16 14:00 71 08/09/16 12:00 98.9 64 25 104/57 94 08/09/16 12:00 64 08/09/16 11:48 96 Nasal Cannula 3.00 08/09/16 10:00 99 08/09/16 08:00 92 08/09/16 08:00 98.2 92 28 112/52 98 08/09/16 06:00 92 08/09/16 04:00 84 08/09/16 04:00 98.9 84 32 117/61 97 08/09/16 02:00 88 08/09/16 00:00 98.6 99 26 104/57 97 08/09/16 00:00 99 08/08/16 22:00 86 08/08/16 20:52 99 Nasal Cannula 3.00 08/08/16 20:00 99.4 96 25 105/59 96 08/08/16 20:00 96 I/O 08/08/16 08/08/16 08/08/16 08/09/16 08/09/16 08/09/16 07:00 15:00 23:00 07:00 15:00 23:00 Intake Total 829 ml 1180 ml 626 ml 492 ml 566 ml Output Total 150 ml 450 ml 475 ml 350 ml 600 ml Balance 679 ml 730 ml 151 ml 142 ml -34 ml Intake Oral 120 ml 380 ml 0 ml IV Total 709 ml 800 ml 626 ml 492 ml 566 ml Output Urine Total 150 ml 450 ml 475 ml 350 ml 600 ml Laboratory Laboratory Tests Test 08/09/16 08/09/16 02:16 11:40 White Blood Count 8.3 Red Blood Count 3.08 Hemoglobin 7.9 Hematocrit 24.2 Mean Corpuscular Volume 78.7 Mean Corpuscular Hemoglobin 25.5 Mean Corpuscular Hemoglobin 32.4 Concent Red Cell Distribution Width 18.7 Platelet Count 225 Mean Platelet Volume 8.0 Neutrophils (%) (Auto) 85.7 Lymphocytes (%) (Auto) 6.1 Monocytes (%) (Auto) 6.7 Eosinophils (%) (Auto) 1.0 Basophils (%) (Auto) 0.5 Neutrophils # (Auto) 7.1 Lymphocytes # (Auto) 0.5 Monocytes # (Auto) 0.6 Eosinophils # (Auto) 0.1 Basophils # (Auto) 0.0 CBC Comment DIFF FINAL Differential Comment Sodium Level 144 Potassium Level 3.4 4.3 Chloride Level 111 Carbon Dioxide Level 24.8 Anion Gap 8 Blood Urea Nitrogen 13 Creatinine 0.76 Estimat Glomerular Filtration 97 Rate Random Glucose 86 Calcium Level 7.5 Phosphorus Level 2.2 3.1 Date/Time Procedure Status Source Growth 08/05/16 11:13 Aerobic Blood Culture - Preliminary Resulted Blood Peripheral NO GROWTH IN 4 DAYS 08/05/16 11:13 Anaerobic Blood Culture - Preliminary Resulted Blood Peripheral NO GROWTH IN 4 DAYS Physical Exam HEENT: Normocephalic; atraumatic; no jaundice. CHEST: CTA CARDIAC: Irregular ABDOMEN: Soft, nondistended, nontender; no hepatosplenomegaly; bowel sounds are present in all four quadrants. EXTREMITIES: Deformities of bilateral hands SKIN: Normal; no rash; no jaundice. STAFF CONSULTANT: No focal deficits; alert and oriented times three. Assessment and Plan Plan ASSESSMENT: - PSBO vs. Ileus. X-ray on (08/06/16) non specific intestinal gas pattern. Abdomen/Pelvis CT (08/03/16)----> Proximal to mid small bowel ileus with acute transition characteristic of an obstructing adhesion. No evidence of discrete mass. Bilateral nephrolithiasis without evidence of hydronephrosis. Left renal cyst. Fecal impaction in rectum. Small Bowel X-Ray (08/04/16)----> Diffuse small bowel dilatation which can be seen with ileus or partial obstruction. Abdomen X-Ray (08/05/16)----> Improved examination. 3 isolated loops of distended small bowel in the midabdomen markedly improved since the . No hx surgeries. Abdomen soft, nondistended, nontender. Tolerating clears. GS signed off - Gi bleed/coffee ground emesis. No active bleeding. HH slowly trending down 8.2/26.0. EGD in am. - Leukocytosis/ UTI - resolved on cipro - Rheumatoid arthritis, A. fib, and heart failure per attending 17 doing better, no s/o active bleed, no nausea of vomiting, EGD showed esophagitis and possible Christina Dia tear, no black stool, mild drop of HGB Plan: - full liquid diet - PPI - Monitor hh - Transfuse as needed - Supportive care - colonoscopy if there is sign of active bleed and patient agreeable to do so. Julia Funk MD Aug 09, 2016 18:59
[2016-08-09] MEDS: ARTIFICIAL TEARS OPTH OINT 3.5 APPLIC/3.5 GM TUBO EACH EYE SCH (20:41)
--- NOTE | 2016-08-09 22:33 | HHI.PR ---
Subjective Remarks patient seen this afternoon around 4 PM. Still awaiting EGD. Patient says he feels well. Denies any chest pain or shortness of breath. Very hungry. Discussed with daughter at bedside. Objective Vital Signs Date Time Temp Pulse Resp B/P Pulse Ox O2 Delivery O2 Flow Rate FiO2 08/09/16 22:00 78 08/09/16 20:00 99.9 77 20 118/58 98 08/09/16 20:00 77 08/09/16 19:45 84 16 98 Nasal Cannula 2 08/09/16 19:30 83 16 107/73 97 Nasal Cannula 2 08/09/16 19:15 83 16 117/67 98 Nasal Cannula 2 08/09/16 19:00 95 16 105/63 96 Nasal Cannula 2 08/09/16 18:56 97.3 88 14 96/58 95 Nasal Cannula 2 08/09/16 18:00 72 08/09/16 16:00 98.7 72 29 110/68 95 08/09/16 16:00 68 08/09/16 14:00 71 08/09/16 12:00 98.9 64 25 104/57 94 08/09/16 12:00 64 08/09/16 11:48 96 Nasal Cannula 3.00 08/09/16 10:00 99 08/09/16 08:00 92 08/09/16 08:00 98.2 92 28 112/52 98 08/09/16 06:00 92 08/09/16 04:00 84 08/09/16 04:00 98.9 84 32 117/61 97 08/09/16 02:00 88 08/09/16 00:00 98.6 99 26 104/57 97 08/09/16 00:00 99 I/O 08/08/16 08/08/16 08/08/16 08/09/16 08/09/16 08/09/16 07:00 15:00 23:00 07:00 15:00 23:00 Intake Total 829 ml 1180 ml 626 ml 492 ml 566 ml 1247 ml Output Total 150 ml 450 ml 475 ml 350 ml 600 ml 750 ml Balance 679 ml 730 ml 151 ml 142 ml -34 ml 497 ml Intake Oral 120 ml 380 ml 0 ml 50 ml IV Total 709 ml 800 ml 626 ml 492 ml 566 ml 1097 ml Other 100 ml Output Urine Total 150 ml 450 ml 475 ml 350 ml 600 ml 700 ml Estimated Blood Loss 50 ml Result Diagram: 08/09/16 0216 08/09/16 1140 Objective Remarks GENERAL: Lying in bed. Appears comfortable. Alert and oriented 3.again,no changes on exam. SKIN: Warm and dry. HEAD: Normocephalic. EYES: No scleral icterus. No injection or drainage. NECK: Supple, trachea midline. No JVD. CARDIOVASCULAR: Regular rate and rhythm without murmurs, gallops, or rubs. RESPIRATORY: Breath sounds equal bilaterally. No accessory muscle use. GASTROINTESTINAL: Abdomen soft, non-tender, nondistended. MUSCULOSKELETAL: No cyanosis, or edema. BACK: Nontender without obvious deformity. No CVA tenderness. A/P Assessment and Plan =====08/09/16 -anemia. No chest pain. Monitor -Awaiting EGD. -potassium replaced. Continue ampicillin 2 week course for enterococcus faecalis. Follow-up repeat cultures from 08/05 //Partial Small bowel obstruction versus ileus- status post small bowel follow through per general surgery , clinically improving with bowel rest NG tube to low intermittent suction, KUB improved. -Surgery has signed off. Pain control, IV fluid hydration, supportive care -GI following. Appreciate assistance.EGD results pending. //Acute anemia. //Acute upper GI bleed -Hold all anti-coagulation. - GI following continue with IV PPI infusion drip. -hemoglobin relatively stable EGD results pending. -transfusion threshold 7. //Sepsis with UTI with enterococcus D //Enterococcus bacteremia -If final repeat blood cultures from 08/05 continue negative, Continue 2 week course of ampicillin as per infectious disease. -Follow up repeat blood cultures 08/05. //History atrial fibrillationcontinue IV digoxin for rate control, //Hypertension,all antihypertensives on hold secondary to sepsis. monitor blood pressure. //Hyperlipidemia //CAD, stable. -Holding anticoagulation due to GI bleed. //Hypernatremiaimproved on D5 half-normal saline + 20 meq KCL - -continue fluids as ordered. Follow-up sodium tomorrow. //Hypokalemiareplete as necessary. //DVT prophylaxisSCDs, no anticoagulation due to GI bleed Discharge Planning EGD today. ( initially had planned for 08/08) Pending clinical course, will likely need SNF. Appreciate case management assistance. Len Alvarez MD Aug 09, 2016 22:33
[2016-08-10] VITALS (12 sets, daily range): BP systolic 104–116; BP diastolic 56–65; PULSE 70–103; RESP 16–40; TEMP 97.8–99.7; O2SAT 91–98
[2016-08-10] MEDS: PANTOPRAZOLE SODIUM 40 MG VIAL IV PUSH SCH ×3 (01:10→23:39)
[2016-08-10] MEDS: AMPICILLIN INJ 2,000 MG in SODIUM CHLORIDE 0.9% INJ 100 ML IV SCH ×7 (01:10→23:10)
[2016-08-10] MEDS: CHLORHEXIDINE GLUCONATE 2 % 1 PACK (2 CLOTHS) TOP SCH (04:00)
[2016-08-10 07:05] LABS: AUTOMATED NEUTROPHIL # 7.6 TH/MM3 (1.8-7.7); BASOPHIL # 0.1 TH/MM3 (0-0.2); BASOPHIL % 0.6 % (0.0-2.0); EOSINOPHIL # 0.1 TH/MM3 (0-0.4); EOSINOPHIL % 0.7 % (0.0-4.0); HEMATOCRIT 24.9 % (39.0-51.0); HEMO FLAGS DIFF FINAL; LYMPH % 5.5 % (9.0-44.0); LYMPHOCYTE # 0.5 TH/MM3 (1.0-4.8); MEAN CELL VOLUME 80.1 FL (80.0-100.0); MEAN CORPUSCULAR HEMOGLOBIN 25.4 PG (27.0-34.0); MEAN CORPUSCULAR HGB CONC 31.7 % (32.0-36.0); MONO % 7.3 % (0.0-8.0); NEUT % 85.9 % (16.0-70.0); PLATELET COUNT 246 TH/MM3 (150-450); RED BLOOD COUNT 3.11 MIL/MM3 (4.50-5.90); RED CELL DISTRIBUTION WIDTH 18.8 % (11.6-17.2); WHITE BLOOD COUNT 8.9 TH/MM3 (4.0-11.0)
[2016-08-10 07:33] LABS: BICARBONATE 22.4 MEQ/L (21.0-32.0); MAGNESIUM 1.8 MG/DL (1.5-2.5); POTASSIUM 3.6 MEQ/L (3.5-5.1)
[2016-08-10] MEDS: D5-1/2 NS + KCL 20 MEQ INJ 1,000 ML IV SCH ×2 (08:05→16:19)
[2016-08-10] MEDS: predniSONE 10 MG TAB PO SCH (08:08)
[2016-08-10] MEDS: SODIUM CHLORIDE 0.9% FLUSH 5 ML FLUSH FLUSH SCH ×2 (08:08→21:44)
[2016-08-10] MEDS: DIGOXIN 0.5 MG/2 ML VIAL IV PUSH SCH (08:09)
[2016-08-10] MEDS: METOPROLOL TARTRATE 25 MG TAB PO SCH ×2 (08:10→21:43)
--- NOTE | 2016-08-10 09:59 | HHI.GIFU ---
Subjective Remarks Patient resting in bed. No signs of bleeding. No nausea, vomiting, abdominal pain. He reports that he is hungry and would like some breakfast. Objective Vitals I&O Vital Signs Date Time Temp Pulse Resp B/P Pulse Ox O2 Delivery O2 Flow Rate FiO2 08/10/16 06:00 97 08/10/16 04:00 92 08/10/16 04:00 99.7 92 20 116/64 95 08/10/16 02:00 98 08/10/16 00:00 70 08/10/16 00:00 99.0 70 20 112/57 92 08/09/16 22:00 78 08/09/16 20:00 99.9 77 20 118/58 98 08/09/16 20:00 77 08/09/16 19:45 84 16 98 Nasal Cannula 2 08/09/16 19:30 83 16 107/73 97 Nasal Cannula 2 08/09/16 19:15 83 16 117/67 98 Nasal Cannula 2 08/09/16 19:00 95 16 105/63 96 Nasal Cannula 2 08/09/16 18:56 97.3 88 14 96/58 95 Nasal Cannula 2 08/09/16 18:00 72 08/09/16 16:00 98.7 72 29 110/68 95 08/09/16 16:00 68 08/09/16 14:00 71 08/09/16 12:00 98.9 64 25 104/57 94 08/09/16 12:00 64 08/09/16 11:48 96 Nasal Cannula 3.00 08/09/16 10:00 99 I/O 08/09/16 08/09/16 08/09/16 08/10/16 08/10/16 08/10/16 07:00 15:00 23:00 07:00 15:00 23:00 Intake Total 492 ml 566 ml 1247 ml 432 ml Output Total 350 ml 600 ml 750 ml 500 ml Balance 142 ml -34 ml 497 ml -68 ml Intake Oral 0 ml 50 ml IV Total 492 ml 566 ml 1097 ml 432 ml Other 100 ml Output Urine Total 350 ml 600 ml 700 ml 500 ml Estimated Blood Loss 50 ml # Bowel Movements 1 Laboratory Laboratory Tests Test 08/09/16 08/10/16 11:40 06:40 Potassium Level 4.3 3.6 Phosphorus Level 3.1 2.2 White Blood Count 8.9 Red Blood Count 3.11 Hemoglobin 7.9 Hematocrit 24.9 Mean Corpuscular Volume 80.1 Mean Corpuscular Hemoglobin 25.4 Mean Corpuscular Hemoglobin 31.7 Concent Red Cell Distribution Width 18.8 Platelet Count 246 Mean Platelet Volume 8.2 Neutrophils (%) (Auto) 85.9 Lymphocytes (%) (Auto) 5.5 Monocytes (%) (Auto) 7.3 Eosinophils (%) (Auto) 0.7 Basophils (%) (Auto) 0.6 Neutrophils # (Auto) 7.6 Lymphocytes # (Auto) 0.5 Monocytes # (Auto) 0.6 Eosinophils # (Auto) 0.1 Basophils # (Auto) 0.1 CBC Comment DIFF FINAL Differential Comment Sodium Level 140 Chloride Level 108 Carbon Dioxide Level 22.4 Anion Gap 10 Blood Urea Nitrogen 11 Creatinine 0.81 Estimat Glomerular Filtration 90 Rate Random Glucose 84 Calcium Level 7.6 Magnesium Level 1.8 Albumin 2.1 Date/Time Procedure Status Source Growth 08/05/16 11:13 Aerobic Blood Culture - Preliminary Resulted Blood Peripheral NO GROWTH IN 4 DAYS 08/05/16 11:13 Anaerobic Blood Culture - Preliminary Resulted Blood Peripheral NO GROWTH IN 4 DAYS Imaging Last Impressions Abdomen X-Ray 08/06/16 0600 Signed Impressions: Service Date/Time: Saturday, August 06, 2016 05:40 - CONCLUSION: Nonspecific intestinal gas pattern Ed Marin MD Small Bowel X-Ray 08/04/16 0000 Signed Impressions: Service Date/Time: Thursday, August 04, 2016 14:39 - CONCLUSION: Diffuse small bowel dilatation which can be seen with ileus or partial obstruction. 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 Interstitial pneumonitis versus early congestion should be considered. Dane Schumacher MD Abdomen/Pelvis CT 08/03/16 0000 Signed Impressions: Service Date/Time: Wednesday, August 03, 2016 19:36 - CONCLUSION: Proximal to mid small bowel ileus with acute transition characteristic of an obstructing adhesion. No evidence of discrete mass. Bilateral nephrolithiasis without evidence of hydronephrosis. Left renal cyst. Fecal impaction in rectum. Dane Schumacher MD Physical Exam HEENT: Normocephalic; atraumatic; no jaundice. CHEST: CTA CARDIAC: Irregular ABDOMEN: Soft, nondistended, nontender; no hepatosplenomegaly; bowel sounds are present in all four quadrants. EXTREMITIES: Deformities of bilateral hands SKIN: Normal; no rash; no jaundice. 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 Assessment and Plan Plan ASSESSMENT: - PSBO vs. Ileus. X-ray on (08/06/16) non specific intestinal gas pattern. Abdomen/Pelvis CT (08/03/16)----> Proximal to mid small bowel ileus with acute transition characteristic of an obstructing adhesion. No evidence of discrete mass. Bilateral nephrolithiasis without evidence of hydronephrosis. Left renal cyst. Fecal impaction in rectum. Small Bowel X-Ray (08/04/16)----> Diffuse small bowel dilatation which can be seen with ileus or partial obstruction. Abdomen X-Ray (08/05/16)----> Improved examination. 3 isolated loops of distended small bowel in the midabdomen markedly improved since the . No hx surgeries. Abdomen soft, nondistended, nontender. Tolerating clears. GS signed off - Gi bleed/coffee ground emesis. S/P EGD (08/09/16)-----> esophagitis, possible Christina-Dia tear. Pathology pending. No active bleeding. 7.9/24.9 PPI. - Leukocytosis/ UTI. Abx per primary - Rheumatoid arthritis, A. fib, and heart failure per attending Plan: - Heart healthy diet, soft - Await pathology - PPI - Monitor HH - Transfuse as needed - Supportive care - Consider colonoscopy if there is signs of active bleeding and if patient agreeable- no active bleeding at this time - Pt seen and examined by Dr. Funk and myself and this note is written on his behalf Madeleine Cid Aug 10, 2016 09:59
[2016-08-10] MEDS ORDERED: PANT40TA3 PO (10:01)
[2016-08-10] MEDS ORDERED: NORC5TAB PO (10:01)
[2016-08-10] MEDS ORDERED: METO25TA3 PO (10:01)
[2016-08-10] MEDS ORDERED: POTASSIUM PHOSPHATE INJ 15 MMOL in SODIUM CHLORIDE 0.9% INJ 150 ML IV ONE (11:00)
--- NOTE | 2016-08-10 13:33 | MR ---
cc: DARRON FAJARDO M.D. DATE 08/09/2016 DATE OF [birth year][address] Alvarez PROCEDURE Upper gastrointestinal endoscopy with biopsy. INDICATION This is an 89-year-old gentleman who has coffee-ground emesis and anemia. PROCEDURE After informing the patient about the procedure and complication, consent was signed. The patient was placed on his left lateral decubitus, adequate sedation was achieved by propofol. The scope was placed in the mouth and advanced under video guidance to the second portion of the duodenum. The scope was drawn back to the stomach and retroflexion was performed. The scope drawn back to the distal esophagus. Biopsy from the GE junction and distal esophagus. The scope drawn back without immediate complication. FINDINGS 1. Esophagitis grade B with questionable Christina-Dia tear and biopsy was done. 2. Stomach normal no redness on the stomach. 3. Duodenum, normal. 4. No sign of active bleeding. RECOMMENDATIONS 1. Follow-up biopsy. 2. Continue PPI. 3. Consider colonoscopy if hemoglobin drops and the patient agrees for the colonoscopy. MD KARYN Greer/SHANICE /6:56 PM /1:30 PM
--- NOTE | 2016-08-10 15:55 | HHI.IDPN ---
Subjective Subjective Remarks low grade temps 99.2 doing well no c/o takes po Antibiotics ampicillin Allergies: Coded Allergies: No Known Allergies (Unverified , 08/03/16) Objective . Vital Signs Date Time Temp Pulse Resp B/P Pulse Ox O2 Delivery O2 Flow Rate FiO2 08/10/16 14:00 103 08/10/16 12:00 99.2 100 31 111/56 93 08/10/16 12:00 100 08/10/16 10:23 93 Nasal Cannula 3.00 08/10/16 10:00 89 08/10/16 08:00 99.1 102 40 110/65 91 08/10/16 08:00 102 08/10/16 06:00 97 08/10/16 04:00 92 08/10/16 04:00 99.7 92 20 116/64 95 08/10/16 02:00 98 08/10/16 00:00 70 08/10/16 00:00 99.0 70 20 112/57 92 08/09/16 22:00 78 08/09/16 20:00 99.9 77 20 118/58 98 08/09/16 20:00 77 08/09/16 19:45 84 16 98 Nasal Cannula 2 08/09/16 19:30 83 16 107/73 97 Nasal Cannula 2 08/09/16 19:15 83 16 117/67 98 Nasal Cannula 2 08/09/16 19:00 95 16 105/63 96 Nasal Cannula 2 08/09/16 18:56 97.3 88 14 96/58 95 Nasal Cannula 2 08/09/16 18:00 72 08/09/16 16:00 98.7 72 29 110/68 95 08/09/16 16:00 68 08/09/16 08/09/16 08/10/16 15:00 23:00 07:00 Intake Total 566 ml 1247 ml 432 ml Output Total 600 ml 750 ml 500 ml Balance -34 ml 497 ml -68 ml Intake Oral 0 ml 50 ml IV Total 566 ml 1097 ml 432 ml Other 100 ml Output Urine Total 600 ml 700 ml 500 ml Estimated Blood Loss 50 ml # Bowel Movements 1 . Laboratory Tests Test 08/09/16 08/10/16 02:16 06:40 White Blood Count 8.3 TH/MM3 8.9 TH/MM3 Red Blood Count 3.08 MIL/MM3 3.11 MIL/MM3 Hemoglobin 7.9 GM/DL 7.9 GM/DL Hematocrit 24.2 % 24.9 % Mean Corpuscular Volume 78.7 FL 80.1 FL Mean Corpuscular Hemoglobin 25.5 PG 25.4 PG Mean Corpuscular Hemoglobin 32.4 % 31.7 % Concent Red Cell Distribution Width 18.7 % 18.8 % Platelet Count 225 TH/MM3 246 TH/MM3 Mean Platelet Volume 8.0 FL 8.2 FL Neutrophils (%) (Auto) 85.7 % 85.9 % Lymphocytes (%) (Auto) 6.1 % 5.5 % Monocytes (%) (Auto) 6.7 % 7.3 % Eosinophils (%) (Auto) 1.0 % 0.7 % Basophils (%) (Auto) 0.5 % 0.6 % Neutrophils # (Auto) 7.1 TH/MM3 7.6 TH/MM3 Lymphocytes # (Auto) 0.5 TH/MM3 0.5 TH/MM3 Monocytes # (Auto) 0.6 TH/MM3 0.6 TH/MM3 Eosinophils # (Auto) 0.1 TH/MM3 0.1 TH/MM3 Basophils # (Auto) 0.0 TH/MM3 0.1 TH/MM3 CBC Comment DIFF FINAL DIFF FINAL Differential Comment Laboratory Tests Test 08/09/16 08/09/16 08/10/16 02:16 11:40 06:40 Sodium Level 144 MEQ/L 140 MEQ/L Potassium Level 3.4 MEQ/L 4.3 MEQ/L 3.6 MEQ/L Chloride Level 111 MEQ/L 108 MEQ/L Carbon Dioxide Level 24.8 MEQ/L 22.4 MEQ/L Anion Gap 8 MEQ/L 10 MEQ/L Blood Urea Nitrogen 13 MG/DL 11 MG/DL Creatinine 0.76 MG/DL 0.81 MG/DL Estimat Glomerular Filtration 97 ML/MIN 90 ML/MIN Rate Random Glucose 86 MG/DL 84 MG/DL Calcium Level 7.5 MG/DL 7.6 MG/DL Phosphorus Level 2.2 MG/DL 3.1 MG/DL 2.2 MG/DL Magnesium Level 1.8 MG/DL Albumin 2.1 GM/DL Imaging Last Impressions Abdomen X-Ray 08/06/16 0600 Signed Impressions: Service Date/Time: Saturday, August 06, 2016 05:40 - CONCLUSION: Nonspecific intestinal gas pattern Ed Marin MD Small Bowel X-Ray 08/04/16 0000 Signed Impressions: Service Date/Time: Thursday, August 04, 2016 14:39 - CONCLUSION: Diffuse small bowel dilatation which can be seen with ileus or partial obstruction. 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 Interstitial pneumonitis versus early congestion should be considered. Dane Schumacher MD Abdomen/Pelvis CT 08/03/16 0000 Signed Impressions: Service Date/Time: Wednesday, August 03, 2016 19:36 - CONCLUSION: Proximal to mid small bowel ileus with acute transition characteristic of an obstructing adhesion. No evidence of discrete mass. Bilateral nephrolithiasis without evidence of hydronephrosis. Left renal cyst. Fecal impaction in rectum. Dane Schumacher MD Physical Exam CONSTITUTIONAL/GENERAL: This is an adequately nourished patient, in no apparent distress. \SKIN: No jaundice, rashes, or lesions. Skin temperature appropriate. Not diaphoretic. EYES: Pupils equal and round and reactive. Extraocular motions intact. No scleral icterus. No injection or drainage. Fundi not examined. ENT: Hearing markedly decreased. Nose without bleeding or purulent drainage. Throat without visible erythema, exudates, masses, or lesions. CARDIOVASCULAR: Regular rate and rhythm without murmurs, gallops, or rubs. No JVD. Peripheral pulses symmetric. RESPIRATORY/CHEST: Symmetric, unlabored respirations. Clear to auscultation. Breath sounds equal bilaterally. No wheezes, rales, or rhonchi. GASTROINTESTINAL: Abdomen soft, non-tender, nondistended. No hepato-splenomegaly , or palpable masses. No guarding. Bowel sounds present. GENITOURINARY: Without palpable bladder distension. Zaragoza catheter in place with clear yellow urine MUSCULOSKELETAL: Extremities without clubbing, cyanosis, + trace edema. No mottling or clubbing. NEUROLOGICAL: Awake and alert. Motor and sensory grossly within normal limits. Follows commands. Normal speech Moves all extremities. PSYCHIATRIC: calm, cooperative Assessment & Plan Remarks Enterococcus fecalis sepsis, UTI _ Ent fecalis S ampicillin, Levaquine - repeat BC mnegative Partial small bowel obstruction - resolved - cont ampiciillin x 2 weeks - OK to switch to po abx Levaquin 750 daily when ready for dc to complete the course - cont abx thru 08/16 diane [address] Angela [address], MD Aug 10, 2016 15:55
[2016-08-10] MEDS: ARTIFICIAL TEARS OPTH OINT 3.5 APPLIC/3.5 GM TUBO EACH EYE SCH (21:44)
[2016-08-11] VITALS: BP 104/64; PULSE 75; RESP 20; TEMP 97.7; O2SAT 97
--- NOTE | 2016-08-11 00:27 | HHI.PR ---
Subjective Remarks Late entry. Date of service 08/10/16. Patient seen the afternoon of 08/10/16. Patient says he feels well. Denies any chest pain or shortness of breath. Tolerating diet. Discussed with infectious disease. Patient can be discharged on by mouth Levaquin to complete a 14 day course. Objective Vital Signs Date Time Temp Pulse Resp B/P Pulse Ox O2 Delivery O2 Flow Rate FiO2 08/10/16 20:00 98.1 76 20 104/59 98 08/10/16 18:12 93 Nasal Cannula 3.00 08/10/16 16:00 97.8 100 16 116/61 96 08/10/16 14:00 103 08/10/16 12:00 99.2 100 31 111/56 93 08/10/16 12:00 100 08/10/16 10:23 93 Nasal Cannula 3.00 08/10/16 10:00 89 08/10/16 08:00 99.1 102 40 110/65 91 08/10/16 08:00 102 08/10/16 06:00 97 08/10/16 04:00 92 08/10/16 04:00 99.7 92 20 116/64 95 08/10/16 02:00 98 I/O 08/10/16 08/10/16 08/10/16 08/11/16 08/11/16 08/11/16 07:00 15:00 23:00 07:00 15:00 23:00 Intake Total 432 ml 660 ml 720 ml Output Total 500 ml 575 ml 500 ml Balance -68 ml 85 ml 220 ml Intake Oral 60 ml 720 ml IV Total 432 ml 600 ml Output Urine Total 500 ml 575 ml 500 ml # Bowel Movements 1 Result Diagram: 08/10/16 0640 08/10/16 0640 Objective Remarks GENERAL: Lying in bed. Appears comfortable. Alert and oriented 3.again. No changes on exam. SKIN: Warm and dry. HEAD: Normocephalic. EYES: No scleral icterus. No injection or drainage. NECK: Supple, trachea midline. No JVD. CARDIOVASCULAR: Regular rate and rhythm without murmurs, gallops, or rubs. RESPIRATORY: Breath sounds equal bilaterally. No accessory muscle use. GASTROINTESTINAL: Abdomen soft, non-tender, nondistended. MUSCULOSKELETAL: No cyanosis, or edema. BACK: Nontender without obvious deformity. No CVA tenderness. A/P Assessment and Plan =====08/10/16 Stable. No acute findings on EGD. Can continue by mouth Levaquin to complete treatment course. Repeat cultures 08/05 negative. potassium and phosphorus replaced. //Partial Small bowel obstruction versus ileus- status post small bowel follow through per general surgery , clinically improving with bowel rest NG tube to low intermittent suction, KUB improved. -Surgery has signed off. Pain control, IV fluid hydration, supportive care -GI following. Appreciate assistance.EGD results pending. //Acute anemia. //Acute upper GI bleed -Hold all anti-coagulation. - GI following continue with IV PPI infusion drip. -hemoglobin relatively stable EGD results pending. -transfusion threshold 7. //Sepsis with UTI with enterococcus D //Enterococcus bacteremia -If final repeat blood cultures from 08/05 continue negative, Continue 2 week course of ampicillin as per infectious disease. -Follow up repeat blood cultures 08/05. //History atrial fibrillationcontinue IV digoxin for rate control, //Hypertension,all antihypertensives on hold secondary to sepsis. monitor blood pressure. //Hyperlipidemia //CAD, stable. -Holding anticoagulation due to GI bleed. //Hypernatremiaimproved on D5 half-normal saline + 20 meq KCL - -continue fluids as ordered. Follow-up sodium tomorrow. //Hypokalemiareplete as necessary. //DVT prophylaxisSCDs, no anticoagulation due to GI bleed Discharge Planning can likely discharge to SNF tomorrow with by mouth lobe can to complete a 14 day course. Len Alvarez MD Aug 11, 2016 00:27
[2016-08-11] MEDS: D5-1/2 NS + KCL 20 MEQ INJ 1,000 ML IV SCH ×2 (03:50→12:06)
[2016-08-11] MEDS: AMPICILLIN INJ 2,000 MG in SODIUM CHLORIDE 0.9% INJ 100 ML IV SCH ×4 (03:50→16:24)
[2016-08-11] MEDS: CHLORHEXIDINE GLUCONATE 2 % 1 PACK (2 CLOTHS) TOP SCH (03:57)
[2016-08-11] MEDS: DIGOXIN 0.5 MG/2 ML VIAL IV PUSH SCH (07:48)
[2016-08-11] MEDS: METOPROLOL TARTRATE 25 MG TAB PO SCH (07:49)
[2016-08-11] MEDS: predniSONE 10 MG TAB PO SCH (07:49)
[2016-08-11] MEDS: SODIUM CHLORIDE 0.9% FLUSH 5 ML FLUSH FLUSH SCH (07:49)
[2016-08-11 08:00] VITALS: BP 118/66; PULSE 65; RESP 18; TEMP 98.4; O2SAT 96
[2016-08-11 09:06] VITALS: O2SAT 98
--- NOTE | 2016-08-11 09:53 | HHI.GIFU ---
Subjective Remarks Resting in bed. No complaints. No active bleeding. Tolerating diet. Objective Vitals I&O Vital Signs Date Time Temp Pulse Resp B/P Pulse Ox O2 Delivery O2 Flow Rate FiO2 08/11/16 09:06 98 Nasal Cannula 3.00 08/11/16 08:00 98.4 65 18 118/66 96 08/11/16 00:00 97.7 75 20 104/64 97 08/10/16 20:00 98.1 76 20 104/59 98 08/10/16 18:12 93 Nasal Cannula 3.00 08/10/16 16:00 97.8 100 16 116/61 96 08/10/16 14:00 103 08/10/16 12:00 99.2 100 31 111/56 93 08/10/16 12:00 100 08/10/16 10:23 93 Nasal Cannula 3.00 08/10/16 10:00 89 I/O 08/10/16 08/10/16 08/10/16 08/11/16 08/11/16 08/11/16 07:00 15:00 23:00 07:00 15:00 23:00 Intake Total 432 ml 660 ml 720 ml 120 ml Output Total 500 ml 575 ml 500 ml 500 ml Balance -68 ml 85 ml 220 ml -380 ml Intake Oral 60 ml 720 ml 120 ml IV Total 432 ml 600 ml Output Urine Total 500 ml 575 ml 500 ml 500 ml # Bowel Movements 1 1 Imaging Last Impressions Abdomen X-Ray 08/06/16 0600 Signed Impressions: Service Date/Time: Saturday, August 06, 2016 05:40 - CONCLUSION: Nonspecific intestinal gas pattern Ed Marin MD Small Bowel X-Ray 08/04/16 0000 Signed Impressions: Service Date/Time: Thursday, August 04, 2016 14:39 - CONCLUSION: Diffuse small bowel dilatation which can be seen with ileus or partial obstruction. 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 Interstitial pneumonitis versus early congestion should be considered. Dane Schumacher MD Abdomen/Pelvis CT 08/03/16 0000 Signed Impressions: Service Date/Time: Wednesday, August 03, 2016 19:36 - CONCLUSION: Proximal to mid small bowel ileus with acute transition characteristic of an obstructing adhesion. No evidence of discrete mass. Bilateral nephrolithiasis without evidence of hydronephrosis. Left renal cyst. Fecal impaction in rectum. Dane Schumacher MD Physical Exam HEENT: Normocephalic; atraumatic; no jaundice. CHEST: CTA CARDIAC: Irregular ABDOMEN: Soft, nondistended, nontender; no hepatosplenomegaly; bowel sounds are present in all four quadrants. EXTREMITIES: Deformities of bilateral hands SKIN: Normal; no rash; no jaundice. RUBBER DOWN: No focal deficits; alert and oriented times three. Assessment and Plan Plan ASSESSMENT: - PSBO vs. Ileus. RESOLVED. X-ray on (08/06/16) non specific intestinal gas pattern. Abdomen/Pelvis CT (08/03/16)----> Proximal to mid small bowel ileus with acute transition characteristic of an obstructing adhesion. No evidence of discrete mass. Bilateral nephrolithiasis without evidence of hydronephrosis. Left renal cyst. Fecal impaction in rectum. Small Bowel X-Ray (08/04/16)----> Diffuse small bowel dilatation which can be seen with ileus or partial obstruction. Abdomen X-Ray (08/05/16)----> Improved examination. 3 isolated loops of distended small bowel in the midabdomen markedly improved since the . No hx surgeries. Abdomen soft, nondistended, nontender. Tolerating diet. GS signed off - Gi bleed/coffee ground emesis. S/P EGD (08/09/16)-----> esophagitis, possible Christina-Dia tear. Pathology pending. No active bleeding. HH 7.9/24.9 yesterday. PPI. - Leukocytosis/ UTI. Abx per primary - Rheumatoid arthritis, A. fib, and heart failure per attending Plan: - Heart healthy diet, soft - Await pathology - PPI - Monitor HH - Transfuse as needed - Supportive care - Consider colonoscopy if there is signs of active bleeding and if patient agreeable- no active bleeding at this time and patient is not agreeable at this time - Pt seen and examined by Dr. Funk and myself and this note is written on his behalf Madeleine Cid Aug 11, 2016 09:53
[2016-08-11 12:00] VITALS: BP 99/53; PULSE 75; RESP 24; TEMP 96.2; O2SAT 96
[2016-08-11] MEDS: PANTOPRAZOLE SODIUM 40 MG VIAL IV PUSH SCH (13:08)
--- NOTE | 2016-08-11 14:40 | HHI.PR ---
Subjective Remarks pt says he feels well. tolerated breakfast. no cp or sob. wants to go back to [facility]. Objective Vital Signs Date Time Temp Pulse Resp B/P Pulse Ox O2 Delivery O2 Flow Rate FiO2 08/11/16 12:00 96.2 75 24 99/53 96 08/11/16 09:06 98 Nasal Cannula 3.00 08/11/16 08:00 98.4 65 18 118/66 96 08/11/16 00:00 97.7 75 20 104/64 97 08/10/16 20:00 98.1 76 20 104/59 98 08/10/16 18:12 93 Nasal Cannula 3.00 08/10/16 16:00 97.8 100 16 116/61 96 I/O 08/10/16 08/10/16 08/10/16 08/11/16 08/11/16 08/11/16 06:59 14:59 22:59 06:59 14:59 22:59 Intake Total 432 ml 660 ml 720 ml 120 ml Output Total 500 ml 575 ml 500 ml 500 ml Balance -68 ml 85 ml 220 ml -380 ml Intake Oral 60 ml 720 ml 120 ml IV Total 432 ml 600 ml Output Urine Total 500 ml 575 ml 500 ml 500 ml # Bowel Movements 1 1 Result Diagram: 08/10/16 0640 08/10/16 0640 Objective Remarks GENERAL: Lying in bed. Appears comfortable. Alert and oriented 3.again. Again, no changes on exam. SKIN: Warm and dry. HEAD: Normocephalic. EYES: No scleral icterus. No injection or drainage. NECK: Supple, trachea midline. No JVD. CARDIOVASCULAR: Regular rate and rhythm without murmurs, gallops, or rubs. RESPIRATORY: Breath sounds equal bilaterally. No accessory muscle use. GASTROINTESTINAL: Abdomen soft, non-tender, nondistended. MUSCULOSKELETAL: No cyanosis, or edema. BACK: Nontender without obvious deformity. No CVA tenderness. A/P Assessment and Plan =====08/11/16 Stable. No acute findings on EGD. followup GI as outpatient. decrease aspirin dose. enterococcus UTI with bacteremia. continue by mouth Levaquin to complete treatment course. Repeat cultures 3/2 negative. - repeat CBC, CMP at [facility] tomorrow. //Partial Small bowel obstruction versus ileus- status post small bowel follow through per general surgery , clinically improving with bowel rest NG tube to low intermittent suction, KUB improved. -Surgery has signed off. Pain control, IV fluid hydration, supportive care -GI following. Appreciate assistance.EGD bx pending. followup at [facility]. f/u GI as outpt -cont to hold asa //Acute anemia. //Acute upper GI bleed -Hold all anti-coagulation. - GI following continue with IV PPI infusion drip. -hemoglobin relatively stable EGD results pending. -transfusion threshold 7. -hgb stable 7.9 on 08/10. pt refuses colnooscopy. cont to hold aspirin. //Sepsis with UTI with enterococcus D //Enterococcus bacteremia -Follow up repeat blood cultures 08/05 negative. -levaquin to complete tx course. //History atrial fibrillationcontinue IV digoxin for rate control, //Hypertension cont metoprolol. monitor blood pressure. //Hyperlipidemia //CAD, stable. -Holding anticoagulation due to GI bleed. pt refuses colonoscopy. pt aaox3. considering risk and benefits, besty to continue to hold all anticoagulation. //Hypernatremiaimproved on D5 half-normal saline + 20 meq KCL - -resolved with fluids. -Follow-up labs at [facility] //Hypokalemiareplete as necessary. f/u tomorrow at [facility] //DVT prophylaxisSCDs, no anticoagulation due to GI bleed Discharge Planning dc to [facility] -CBC, BMP tomorrow at [facility] -continue to hold aspirin, hold all anticoagulation. -f/u Gi as outpt. Len Alvarez MD Aug 11, 2016 14:40
--- NOTE | 2016-08-11 14:43 | HHI.DS ---
Discharge Summary Admission Date Aug 03, 2016 at 21:55 Discharge Date: Aug 11, 2016 Admitting Diagnosis sepsis, SBO, GI bleed, UTI, constipation (1) GI bleed ICD Code: K92.2 (2) Small bowel obstruction ICD Code: K56.69 (3) UTI (urinary tract infection) ICD Code: N39.0 (4) Leukocytosis ICD Code: D72.829 Procedures EGD. Please see report. Brief History - From Admission History the patient, your physician communication, and review of medical records. Patient's transfer notes from the custodial reviewed. Patient is an elderly gentleman who is entirely awake alert and oriented . Able to give proper history. He states that he came to the hospital because he had episodes of vomiting in the past 24 hours. He stated there was coffee-ground color vomitus. He however denies any diarrhea. He reports that he only started having bowel movements in the hospital. 3 times already so far. Also reports of associated abdominal pain. Lower abdomen. Denies any fever. Denies any chest pain/shortness of breath/focal weakness. 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 He also has severe rheumatoid arthritis which basically made him bedbound. In the emergency room, patient's workup revealed small bowel obstruction with a transition point. NG tube was placed at that time and 900 cc of coffee-ground emesis resulted. After the above 900, patient's NG tube output is quite minimal almost nil. CBC/BMP: 08/10/16 0640 08/10/16 0640 Significant Findings Laboratory Tests Test 08/09/16 08/10/16 02:16 06:40 Red Blood Count 3.08 MIL/MM3 3.11 MIL/MM3 (4.50-5.90) (4.50-5.90) Hemoglobin 7.9 GM/DL 7.9 GM/DL (13.0-17.0) (13.0-17.0) Hematocrit 24.2 % 24.9 % (39.0-51.0) (39.0-51.0) Mean Corpuscular Volume 78.7 FL (80.0-100.0) Mean Corpuscular Hemoglobin 25.5 PG 25.4 PG (27.0-34.0) (27.0-34.0) Red Cell Distribution Width 18.7 % 18.8 % (11.6-17.2) (11.6-17.2) Neutrophils (%) (Auto) 85.7 % 85.9 % (16.0-70.0) (16.0-70.0) Lymphocytes (%) (Auto) 6.1 % 5.5 % (9.0-44.0) (9.0-44.0) Lymphocytes # (Auto) 0.5 TH/MM3 0.5 TH/MM3 (1.0-4.8) (1.0-4.8) Potassium Level 3.4 MEQ/L (3.5-5.1) Chloride Level 111 MEQ/L 108 MEQ/L (98-107) (98-107) Calcium Level 7.5 MG/DL 7.6 MG/DL (8.5-10.1) (8.5-10.1) Phosphorus Level 2.2 MG/DL 2.2 MG/DL (2.5-4.9) (2.5-4.9) Mean Corpuscular Hemoglobin 31.7 % Concent (32.0-36.0) Albumin 2.1 GM/DL (3.4-5.0) Imaging Last Impressions Abdomen X-Ray 08/06/16 0600 Signed Impressions: Service Date/Time: Saturday, August 06, 2016 05:40 - CONCLUSION: Nonspecific intestinal gas pattern Ed Marin MD Small Bowel X-Ray 08/04/16 0000 Signed Impressions: Service Date/Time: Thursday, August 04, 2016 14:39 - CONCLUSION: Diffuse small bowel dilatation which can be seen with ileus or partial obstruction. 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 Interstitial pneumonitis versus early congestion should be considered. Dane Schumacher MD Abdomen/Pelvis CT 08/03/16 0000 Signed Impressions: Service Date/Time: Wednesday, August 03, 2016 19:36 - CONCLUSION: Proximal to mid small bowel ileus with acute transition characteristic of an obstructing adhesion. No evidence of discrete mass. Bilateral nephrolithiasis without evidence of hydronephrosis. Left renal cyst. Fecal impaction in rectum. Dane Schumacher MD PE at Discharge GENERAL: This is a well-nourished, well-developed patient, in no apparent distress with NG tube in place. CARDIOVASCULAR: Regular rate and irregular rhythm RESPIRATORY: Clear to auscultation. Breath sounds equal bilaterally. No wheezes , rales, or rhonchi. GASTROINTESTINAL: Abdomen soft, non-tender, nondistended. Few bowel sounds MUSCULOSKELETAL: Extremities without clubbing, cyanosis, 1+ edema NEURO: Alert & Oriented x3 to person, place, time Hospital Course Gastroenterology and general surgery was consult. Small bowel obstruction resolved with NG tube to low intermittent suction. Hemoglobin in the sevens. Patient refuses colonoscopy. Patient had nausea and vomiting with coffee- ground emesis. Underwent EGD which showed Christina-Dia tear. patient was also found to have UTI, and was treated with antibiotics. Patient will need to follow with primary care. For problem-based summary from most recent progress note, please see below. =====08/11/16 Stable. No acute findings on EGD. followup GI as outpatient. decrease aspirin dose. enterococcus UTI with bacteremia. continue by mouth Levaquin to complete treatment course. Repeat cultures / negative. - repeat CBC, CMP at [facility] tomorrow. //Partial Small bowel obstruction versus ileus- status post small bowel follow through per general surgery , clinically improving with bowel rest NG tube to low intermittent suction, KUB improved. -Surgery has signed off. Pain control, IV fluid hydration, supportive care -GI following. Appreciate assistance.EGD bx pending. followup at [facility]. f/u GI as outpt -cont to hold asa //Acute anemia. //Acute upper GI bleed -Hold all anti-coagulation. - GI following continue with IV PPI infusion drip. -hemoglobin relatively stable EGD results pending. -transfusion threshold 7. -hgb stable 7.9 on 08/10. pt refuses colnooscopy. cont to hold aspirin. //Sepsis with UTI with enterococcus D //Enterococcus bacteremia -Follow up repeat blood cultures 08/05 negative. -levaquin to complete tx course. //History atrial fibrillationcontinue IV digoxin for rate control, //Hypertension cont metoprolol. monitor blood pressure. //Hyperlipidemia //CAD, stable. -Holding anticoagulation due to GI bleed. pt refuses colonoscopy. pt aaox3. considering risk and benefits, besty to continue to hold all anticoagulation. //Hypernatremiaimproved on D5 half-normal saline + 20 meq KCL - -resolved with fluids. -Follow-up labs at [facility] //Hypokalemiareplete as necessary. f/u tomorrow at [facility] //DVT prophylaxisSCDs, no anticoagulation due to GI bleed Pt Condition on Discharge: Good Discharge Disposition: Discharge to [facility] Discharge Time: <= 30 minutes Discharge Instructions DIET: Follow Instructions for: Heart Healthy Diet Activities you can perform: Regular-No Restrictions Follow up Referrals: Gastroenterology - 4 Weeks with Julia Funk MD PCP Follow-up with Leandro Alvarez MD New Medications: Docusate Sodium (Docusate Sodium) 100 Mg Cap 100 MG PO BID Prevent Constipation #60 Ref 0 CAP Ferrous Sulfate (Ferrous Sulfate) 325 Mg Tab 325 MG PO DAILY Nutritional Supplement #30 Ref 0 TAB Levofloxacin (Levofloxacin) 750 Mg Tab 750 MG PO DAILY Infection #7 Ref 0 TAB Pantoprazole (Pantoprazole) 40 Mg Tab 40 MG PO DAILY Reflux #30 Ref 0 TAB Metoprolol Tartrate (Metoprolol Tartrate) 25 Mg Tab 25 MG PO Q12HR heart Days 30 TAB Continued Medications: Artificial Tear Opth Ointment (Refresh Lacri-Lube Opth Ointment) 1 Oint 0.5 INCH EACH EYE HS Dry Eye Digoxin (Digoxin) 0.125 Mg Tab 0.125 MG PO DAILY AFIB #30 Ref 0 TAB Hydrocodone-Acetaminophen ([place]) 5-325 mg Tab 1 TAB PO Q6H PRN PAIN #10 Ref 0 TAB (This prescription has been renewed) Nitroglycerin SL (Nitrostat SL) 0.4 Mg Subl 0.4 MG SL DIRECTED 1 tablet under the tongue as needed for chest pain. Repeat every 5 minutes for a total of 3 DOSES or call 911 if NO relief. CHEST PAIN #100 Ref 0 TAB.SL Ondansetron (Ondansetron) 4 Mg Tab 1 TAB PO Q6HR PRN NAUSEA OR VOMITING Prednisone (Prednisone) 10 Mg Tab 10 MG PO DAILY COPD Ref 0 TAB Prochlorperazine Supp (Prochlorperazine Supp) 25 Mg Supp 25 MG RECTAL Q12HR PRN NAUSEA OR VOMITING Ref 0 SUPP Promethazine (Promethazine) 12.5 Mg Tab 12.5 MG PO Q6H PRN NAUSEA OR VOMITING Ref 0 TAB Promethazine Supp (Phenergan Supp) 25 Mg Supp 25 MG RECTAL Q6H PRN NAUSEA OR VOMITING Ref 0 SUPP Tuberculin Ppd (Tubersol) 5 Unit/0.1 Ml Inj 5 UNITS I-DERMAL ONCE EVERY 365 DAYS PRN ANNUAL PPD VIAL Discontinued Medications: Aspirin DR (Aspir-81) 81 Mg Tabdr 2 CHEW PO DAILY CAD Ranitidine (Zantac) 150 Mg Tab 150 MG PO BID HEARTBURN #60 Ref 0 TAB Len Alvarez MD Aug 11, 2016 14:43
[2016-08-11] MEDS ORDERED: FERR325T PO (14:44)
[2016-08-11] MEDS ORDERED: DOCU100C PO (14:44)
[2016-08-11 15:27] LABS: AUTOMATED NEUTROPHIL # 10.1 TH/MM3 (1.8-7.7); BASOPHIL % 0.2 % (0.0-2.0); EOSINOPHIL % 0.1 % (0.0-4.0); LYMPH % 3.1 % (9.0-44.0); LYMPHOCYTE # 0.3 TH/MM3 (1.0-4.8); MEAN CELL VOLUME 78.6 FL (80.0-100.0); MEAN CORPUSCULAR HEMOGLOBIN 24.8 PG (27.0-34.0); MEAN CORPUSCULAR HGB CONC 31.6 % (32.0-36.0); MONO % 3.7 % (0.0-8.0); NEUT % 92.9 % (16.0-70.0); PLATELET COUNT 256 TH/MM3 (150-450); RED BLOOD COUNT 3.18 MIL/MM3 (4.50-5.90); RED CELL DISTRIBUTION WIDTH 18.5 % (11.6-17.2); WHITE BLOOD COUNT 10.9 TH/MM3 (4.0-11.0)
[2016-08-11 15:32] LABS: HEMO FLAGS AUTO DIFF
[2016-08-11] MEDS ORDERED: LEVO750T33 PO (15:54)
[2016-08-11 16:00] VITALS: BP 111/58; PULSE 72; RESP 22; TEMP 96.7; O2SAT 94
[2016-08-11 16:05] LABS: OVALOCYTES 1+ (NORMAL); SCAN/DIFF AUTO DIFF CONFIRMED
[2016-08-11 16:07] LABS: ANION GAP 9 MEQ/L (5-15); BICARBONATE 22.4 MEQ/L (21.0-32.0); BLOOD UREA NITROGEN 10 MG/DL (7-18); CHLORIDE 107 MEQ/L (98-107); FERRITIN 149 NG/ML (26-388); GLOMERULAR FILTRATION RATE 95 ML/MIN (>89); POTASSIUM 4.4 MEQ/L (3.5-5.1); SODIUM (NA) 138 MEQ/L (136-145); TRANSFERRIN IRON PROFILE 139 MG/DL (200-360)
[2016-08-11 18:21] VITALS: O2SAT 94
== END 2016-08-11 18:38 | DRG 377 ==
LOC: NEPC 17:18 → NEDA 21:55 → HIMN 08-04 02:00 → N07B 08-10 15:22
PROVIDERS: ADMIT Internal Medicine; ATTEND Internal Medicine
PROC: 0DB38ZX Excision of Lower Esophagus, Via Natural or Artificial Opening Endoscopic, Diagnostic (ICD-10-PCS; principal; 2016-08-09 18:16)
DX: K92.2 Gastrointestinal hemorrhage, unspecified (principal); A41.81 Sepsis due to Enterococcus; K56.69 Other intestinal obstruction; E87.0 Hyperosmolality and hypernatremia; D62 Acute posthemorrhagic anemia; N39.0 Urinary tract infection, site not specified; I50.9 Heart failure, unspecified; N20.0 Calculus of kidney; F03.90 Unspecified dementia, unspecified severity, without behavioral disturbance, psychotic disturbance, mood disturbance, and anxiety; I48.91 Unspecified atrial fibrillation; I10 Essential (primary) hypertension; E78.5 Hyperlipidemia, unspecified; I25.10 Atherosclerotic heart disease of native coronary artery without angina pectoris; M81.0 Age-related osteoporosis without current pathological fracture; M19.90 Unspecified osteoarthritis, unspecified site; F41.9 Anxiety disorder, unspecified; F32.9 Major depressive disorder, single episode, unspecified; M06.9 Rheumatoid arthritis, unspecified; H54.8 Legal blindness, as defined in USA; H26.9 Unspecified cataract; I45.10 Unspecified right bundle-branch block; K56.41 Fecal impaction; N28.1 Cyst of kidney, acquired; K20.9 Esophagitis, unspecified; Z74.01 Bed confinement status; Z79.82 Long term (current) use of aspirin; E87.6 Hypokalemia
CPT/HCPCS: 71010; 74000; 74020; 74177; 74250; 80048; 80053; 80069; 80162; 81001; 82728; 83540; 83550; 83605; 83690; 83735; 84100; 84132; 85007; 85014; 85018; 85025; 85027; 85610; 85730; 86850; 86900; 86901; 86920; 87040; 87077; 87086; 87186; 87205; 87641; 88305; 96361; 96374; 96375; C9113; J0290; J0696; J0744; J1160; J2270; J3370; J3480; J7030; J7050; J7512; P9612; Q9963; Q9967